=== PATIENT | male | born 1975 | race Caucasian/White ===

== ENCOUNTER 2021-02-26 13:50 | Emergency (ER) | payer SELFPAY ==
--- NOTE | 2021-02-26 13:59 | ED_ITS ---
HPI - Alcohol General: Stated Complaint: ETOH Time Seen by Provider: 02/26/21 13:58 Coding Level of Care Code ED Accounts Payable Administrator for Remington Frank
[2021-02-26 14:01] VITALS: BP 128/90; PULSE 85; RESP 18; TEMP 37.1; O2SAT 98; BMI 31.5
[2021-02-26 16:22] LABS: Basophils # 0.1 10^3/uL (0.0-0.1); Basophils % 0.7 %; Eosinophils % 0.3 %; Hematocrit 51.8 % (42.0-52.0); Hemoglobin 17.5 g/dL (11.7-16.6); Lymphocytes # 2.5 10^3/uL (0.8-4.8); Lymphocytes % 33.3 %; Mean Corpuscular HGB Conc 33.8 g/dL (30.0-36.0); Mean Corpuscular Hemoglobin 33.3 pg (28.0-34.0); Mean Corpuscular Volume 98.7 fL (80-94); Mean Platelet Volume 9.7 fL (7.4-10.4); Monocytes # 0.7 10^3/uL (0.2-0.9); Neutrophils # 4.04 10^3/uL (1.8-7.7); Neutrophils % 54.5 %; Nucleated Red Blood Cells % 0 %; Platelet Count 261 10^3/cmm (130-400); Red Blood Count 5.25 10^6/uL (4.1-5.3); Red Cell Distribution Width 13.2 % (12.1-15.1); White Blood Count 7.4 10^3/uL (4.0-10.0)
[2021-02-26 16:42] LABS: Alanine Aminotransferase 18 U/L (0-41); Albumin Level 4.4 g/dL (3.5-5.2); Alkaline Phosphatase 88 IU/L (40-130); Anion Gap 12.7 (5-19); Aspartate Amino Transferase 25 U/L (0-40); Blood Urea Nitrogen 7 mg/dL (6-20); Calcium 8.4 mg/dL (8.5-10.5); Carbon Dioxide 30 mmol/L (22-29); Chloride 105 mmol/L (98-107); Globulin 3.2 g/dL (1.3-4.6); Glomerular Filtration Rate 122.5 mL/min (90-130); Glucose 96 mg/dL (65-115); Lipase 43 U/L (13-60); Osmolality Calculated 296 mOsm/kg (285-295); Potassium 3.7 mmol/L (3.5-5.1); Sodium 144 mmol/L (136-145); Total Bilirubin 0.2 mg/dL (0.15-1.2); Total Protein 7.6 g/dL (6.6-8.7)
[2021-02-26 16:57] LABS: Alcohol Level 434 mg/dL (0-10)
--- NOTE | 2021-02-26 18:02 | ED_ITS ---
HPI - General Adult General: Chief complaint: General Medical Stated complaint: ETOH Time Seen by Provider: 02/26/21 13:58 History of Present Illness: HPI narrative: The patient is a 45-year-old male who comes to the ER intoxicated on alcohol. He says he drank lots of vodka. He was brought by EMS but he has no idea why he came here or what brought him here. Denies history of seizures. He is arousable and is intoxicated but does answer questions appropriately. Denies any pain or other issues. Associated symptoms: Deny chest pain, confusion, dyspnea, headache(s), rash or palpitations Review of Systems General: Reports: 10 or more systems reviewed and unremarkable except in HPI and below Const: Denies: fatigue Eyes: Denies: change in vision, blurry vision or eye redness ENMT: Denies: throat pain, swelling of lips/tongue, ear or mastoid pain or nasal congestion Card: Denies: chest pain, palpitations, irregular heart rhythm, edema, dyspnea on exertion or orthopnea Resp: Denies: dyspnea, productive cough or non-productive cough GI: Denies: abdominal pain, diarrhea or GI cramping : Denies: flank pain, urinary frequency or urinary urgency Musc: Denies: neck pain, back pain, extremity pain, joint pain, joint redness, limited range of motion or muscle weakness Skin/Breast: Denies: rash, pruritus, erythema, skin pain or skin tenderness Neuro: Denies: headache(s), numbness in extremities, weakness in extremities, sensory changes, difficulty walking, dizziness, confusion or Slurred speech present Psych: Denies: anxiety or depression Endo: Denies: polyuria All/Imm: Denies: urticaria, throat swelling or tongue swelling Physical Exam Narrative: EXAM NARRATIVE: Intoxicated. Smells of alcohol. Somnolent Const: COMMON NORMALS: no acute distress, average body habitus, patient oriented x3, no limitations, healthy appearing, alert and well nourished GENERAL APPEARANCE: cooperative, comfortable and disheveled ORIENTATION/CONSCIOUSNESS: Yes oriented to person, Yes oriented to place and Yes oriented to time HENMT: COMMON NORMALS: normocephalic, external ears normal and Normal external nose present HEAD & SCALP: normal to inspection and normocephalic NOSE: Normal external nose present EXTERNAL EAR: Yes external ears normal MOUTH: Normal oral and palatal mucosa present THROAT: posterior oropharynx normal Eye: COMMON NORMALS: Equal, round and reactive pupils present and EOMs intact bilaterally GENERAL EYE: appearance normal, both eyes and all related structures PUPIL: Yes Equal, round and reactive pupils present Neck/C-Spine: COMMON NORMALS: full ROM, no lymphadenopathy, no meningeal signs and no JVD GENERAL: Yes normal visual inspection Lymph: LYMPHATIC: no lymphadenopathy noted Chest: COMMONS NORMALS: normal inspection of the chest and normal palpation of entire chest wall Resp: COMMON NORMALS: normal respiratory effort, No retractions, No use of accessory muscles, clear to auscultation bilaterally and percussion normal EFFORT & INSPECTION: Yes able to speak in complete sentences AUSCULTATION: clear to auscultation bilaterally PERCUSSION: percussion normal Cardio: COMMON NORMALS: no JVD, regular rate, regular rhythm, S1 normal heart sound present, S2 normal heart sound present and Peripheral pulses 2+ throughout RATE: regular rate RHYTHM: regular rhythm HEART SOUNDS: S1 normal heart sound present and S2 normal heart sound present PERIPHERAL PULSES: Peripheral pulses 2+ throughout GI: COMMON NORMALS: Normal to inspection, nondistended, normoactive bowel sounds present, Soft to palpation, non-tender and no masses INSPECTION: Yes normal to inspection PALPATION: Yes Soft to palpation : COMMON NORMALS: Yes no CVA tenderness BLADDER/KIDNEY EXAM: Yes no CVA tenderness Back/Pelvis: COMMON NORMALS: no CVA tenderness, thoracic and lumbar spine normal to inspection, no thoracic nor lumbar tenderness and thoraco-lumbar ROM normal Extremity: COMMON NORMALS: normal to inspection, full ROM, capillary refill normal, no joint enlargement and no pedal edema GENERAL: Yes normal exam except as noted Neuro: COMMON NORMALS: patient oriented x3, CN's II-XII intact bilaterally, moves all extremities, no focal motor deficits, no sensory deficits noted and gait normal SENSORIUM/ORIENTATION: Yes alert, Yes oriented to person, Yes oriented to place and Yes oriented to time MENINGEAL SIGNS: Yes no meningeal signs Psych: COMMON NORMALS: mental status grossly normal, Normal thought process present, cooperative, normal affect and speech normal ATTITUDE: Yes calm SPEECH: Yes normal speech THOUGHT PROCESS: Normal thought process present Skin: COMMON NORMALS: no rashes or lesions noted GENERAL SKIN EXAM: no rashes or lesions noted Course Vital Signs: Vital signs: Vital Signs Temperature 98.7 F 02/26/21 14:01 Pulse Rate 85 02/26/21 14:01 Respiratory Rate 18 02/26/21 14:01 Blood Pressure 128/90 02/26/21 14:01 Pulse Oximetry 98 02/26/21 14:01 MDM - General Adult MDM Narrative: Medical decision making narrative: IV fluids were started and the patient was comfortable and asleep. The patient eloped without notifying any staff. Cameras noted him going out the side wooden doors into the hospital but security was unable to locate him. He has an IV in his arm. [employer] department notified and they are searching for him. Lab Data: Labs: Lab Results 02/26/21 02/26/21 Range/Units 16:12 16:12 WBC 7.4 (4.0-10.0) 10^3/ uL RBC 5.25 (4.1-5.3) 10^6/u L Hgb 17.5 H (11.7-16.6) g/dL Hct 51.8 (42.0-52.0) % MCV 98.7 H (80-94) fL MCH 33.3 (28.0-34.0) pg MCHC 33.8 (30.0-36.0) g/dL RDW 13.2 (12.1-15.1) % Plt Count 261 (130-400) 10^3/c mm MPV 9.7 (7.4-10.4) fL Neut % (Auto) 54.5 % Lymph % (Auto) 33.3 % [place] % (Auto) 10.0 % Eos % (Auto) 0.3 % Baso % (Auto) 0.7 % Neut # (Auto) 4.04 (1.8-7.7) 10^3/u L Lymph # (Auto) 2.5 (0.8-4.8) 10^3/u L [place] # (Auto) 0.7 (0.2-0.9) 10^3/u L Eos # (Auto) 0.0 (0.0-0.8) 10^3/u L Baso # (Auto) 0.1 (0.0-0.1) 10^3/u L Nucleated RBC % (a uto) 0 % Nucleated RBCs # 0.0 /100WBC Sodium 144 (136-145) mmol/L Potassium 3.7 (3.5-5.1) mmol/L Chloride 105 (98-107) mmol/L Carbon Dioxide 30 H (22-29) mmol/L Anion Gap 12.7 (5-19) BUN 7 (6-20) mg/dL Creatinine 0.7 (0.7-1.2) mg/dL GFR Calculation 122.5 (90-130) mL/min Glucose 96 (65-115) mg/dL Calculated Osmolal ity 296 H (285-295) mOsm/k g Calcium 8.4 L (8.5-10.5) mg/dL Total Bilirubin 0.2 (0.15-1.2) mg/dL AST 25 (0-40) U/L ALT 18 (0-41) U/L Alkaline Phosphata se 88 (40-130) IU/L Total Protein 7.6 (6.6-8.7) g/dL Albumin 4.4 (3.5-5.2) g/dL Globulin 3.2 (1.3-4.6) g/dL Lipase 43 (13-60) U/L Ethyl Alcohol 434 H* (0-10) mg/dL Discharge Plan Discharge Patient Disposition: Left Against Medical Advice Condition: Stable Prescriptions: No Action ibuprofen 200 mg Tablet 800 mg PO PRN RF: 0 Patient Instructions: Opioid Safety Coding Level of Care Code ED First Crusher for Remington Frank
--- NOTE | 2021-02-26 18:23 | PC.NURSE ---
1710 RN rounded on pt and pt is not in his room. pt belongings are not in the pt's room. Pt still has IV in his arm. Pt is not in ER bathrooms or ER. notified charge nurse. walked through hospital. Did not locate pt. notified charge nurse. Security contacted and cameras checked. Charge nurse walked through hospital. Did not locate pt. [facility] Dept contacted and said they would take care of it. Charge nurse notified.
== END 2021-02-26 17:55 | disposition left against medical advice (07) ==
PROVIDERS: Emergency Provider Family Medicine
DX: F10.129 Alcohol abuse with intoxication, unspecified (principal); Y90.8 Blood alcohol level of 240 mg/100 ml or more; Z53.21 Procedure and treatment not carried out due to patient leaving prior to being seen by health care provider
CPT/HCPCS: 80053; 80307; 83690; 85025; 99283

== ENCOUNTER 2021-05-09 15:54 | Emergency (ER) | payer SELFPAY ==
[2021-05-09 16:01] VITALS: PULSE 84; RESP 14; O2SAT 93; BMI 22.9
[2021-05-09] MEDS: sodium chloride 0.9% 1,000 ML 999 ML IV (16:15)
[2021-05-09 16:50] LABS: Basophils # 0.1 10^3/uL (0.0-0.1); Basophils % 1.2 %; Eosinophils # 0.1 10^3/uL (0.0-0.8); Eosinophils % 1.1 %; Hematocrit 44.5 % (42.0-52.0); Hemoglobin 14.9 g/dL (11.7-16.6); Lymphocytes % 46.2 %; Mean Corpuscular HGB Conc 33.5 g/dL (30.0-36.0); Mean Corpuscular Hemoglobin 32.7 pg (28.0-34.0); Mean Corpuscular Volume 97.8 fL (80-94); Mean Platelet Volume 10.4 fL (7.4-10.4); Monocytes # 0.7 10^3/uL (0.2-0.9); Monocytes % 10.8 %; Neutrophils # 2.61 10^3/uL (1.8-7.7); Neutrophils % 40.1 %; Nucleated Red Blood Cells % 0 %; Platelet Count 151 10^3/cmm (130-400); Red Blood Count 4.55 10^6/uL (4.1-5.3); Red Cell Distribution Width 13.2 % (12.1-15.1); White Blood Count 6.5 10^3/uL (4.0-10.0)
[2021-05-09 17:03] LABS: Lactate (Lactic Acid level) 1.1 mmol/L (0.5-2.2)
[2021-05-09 17:15] LABS: Alanine Aminotransferase 12 U/L (0-41); Albumin Level 3.9 g/dL (3.5-5.2); Alkaline Phosphatase 50 IU/L (40-130); Aspartate Amino Transferase 20 U/L (0-40); Blood Urea Nitrogen 5 mg/dL (6-20); Calcium 7.6 mg/dL (8.5-10.5); Carbon Dioxide 27 mmol/L (22-29); Chloride 110 mmol/L (98-107); Globulin 2.1 g/dL (1.3-4.6); Glomerular Filtration Rate 146.4 mL/min (90-130); Glucose 91 mg/dL (65-115); Osmolality Calculated 295 mOsm/kg (285-295); Sodium 144 mmol/L (136-145); Total Bilirubin 0.2 mg/dL (0.15-1.2)
[2021-05-09 17:24] LABS: Alcohol Level 542 mg/dL (0-10)
--- NOTE | 2021-05-09 17:44 | W.ED.ALCOHOL ---
HPI - Alcohol General: Chief Complaint: Alcohol Stated Complaint: UNRESPONSIVE/ ETOH Time Seen by Provider: 05/09/21 16:07 History of Present Illness: HPI narrative: The patient is a 45-year-old male who comes to the ER after he was found by his girlfriend unresponsive in her front yard after he had been drinking all night. When EMS arrived they found him responsive and he had gotten himself up in a chair. On arrival to the ER he is heavily intoxicated and smells of alcohol. Admits to heavy drinking. He is quite somnolent but does respond to painful stimuli and will answer some questions appropriately though he is heavily intoxicated. Denies drug abuse. MD complaint: alcohol intoxication Associated symptoms: Reports no associated symptoms; Deny abdominal pain or depression Review of Systems General: Reports: 10 or more systems reviewed and unremarkable except in HPI and below Const: Denies: fatigue Eyes: Denies: change in vision, blurry vision or eye redness ENMT: Denies: throat pain, swelling of lips/tongue, ear or mastoid pain or nasal congestion Card: Denies: chest pain, palpitations, irregular heart rhythm, edema, dyspnea on exertion or orthopnea Resp: Denies: dyspnea, productive cough or non-productive cough GI: Denies: abdominal pain, diarrhea or GI cramping : Denies: flank pain, urinary frequency or urinary urgency Musc: Denies: neck pain, back pain, extremity pain, joint pain, joint redness, limited range of motion or muscle weakness Skin/Breast: Denies: rash, pruritus, erythema, skin pain or skin tenderness Neuro: Denies: headache(s), numbness in extremities, weakness in extremities, sensory changes, difficulty walking, dizziness, confusion or Slurred speech present Psych: Denies: anxiety or depression Endo: Denies: polyuria All/Imm: Denies: urticaria, throat swelling or tongue swelling Physical Exam Const: ORIENTATION/CONSCIOUSNESS: Yes oriented to person and Yes oriented to place OTHER: Heavily intoxicated and very somnolent. HENMT: COMMON NORMALS: normocephalic, external ears normal and Normal external nose present HEAD & SCALP: normal to inspection and normocephalic NOSE: Normal external nose present EXTERNAL EAR: Yes external ears normal MOUTH: Normal oral and palatal mucosa present THROAT: posterior oropharynx normal Eye: COMMON NORMALS: Equal, round and reactive pupils present and EOMs intact bilaterally GENERAL EYE: appearance normal, both eyes and all related structures PUPIL: Yes Equal, round and reactive pupils present Neck/C-Spine: COMMON NORMALS: full ROM, no lymphadenopathy, no meningeal signs and no JVD GENERAL: Yes normal visual inspection Lymph: LYMPHATIC: no lymphadenopathy noted Chest: COMMONS NORMALS: normal inspection of the chest and normal palpation of entire chest wall Resp: COMMON NORMALS: normal respiratory effort, No retractions, No use of accessory muscles, clear to auscultation bilaterally and percussion normal EFFORT & INSPECTION: Yes able to speak in complete sentences AUSCULTATION: clear to auscultation bilaterally PERCUSSION: percussion normal Cardio: COMMON NORMALS: no JVD, regular rate, regular rhythm, S1 normal heart sound present, S2 normal heart sound present and Peripheral pulses 2+ throughout RATE: regular rate RHYTHM: regular rhythm HEART SOUNDS: S1 normal heart sound present and S2 normal heart sound present PERIPHERAL PULSES: Peripheral pulses 2+ throughout GI: COMMON NORMALS: Normal to inspection, nondistended, normoactive bowel sounds present, Soft to palpation, non-tender and no masses INSPECTION: Yes normal to inspection PALPATION: Yes Soft to palpation : COMMON NORMALS: Yes no CVA tenderness BLADDER/KIDNEY EXAM: Yes no CVA tenderness Back/Pelvis: COMMON NORMALS: no CVA tenderness, thoracic and lumbar spine normal to inspection, no thoracic nor lumbar tenderness and thoraco-lumbar ROM normal Extremity: COMMON NORMALS: normal to inspection, full ROM, capillary refill normal, no joint enlargement and no pedal edema GENERAL: Yes normal exam except as noted Neuro: COMMON NORMALS: CN's II-XII intact bilaterally, moves all extremities, no focal motor deficits, no sensory deficits noted and gait normal SENSORIUM/ORIENTATION: Yes oriented to person and Yes oriented to place MENINGEAL SIGNS: Yes no meningeal signs Psych: APPEARANCE: Yes unkempt Skin: COMMON NORMALS: no rashes or lesions noted GENERAL SKIN EXAM: no rashes or lesions noted Course Vital Signs: Vital signs: Vital Signs Pulse Rate 88 05/09/21 18:49 Respiratory Rate 14 05/09/21 16:01 Pulse Oximetry 96 05/09/21 18:49 MDM - Alcohol MDM Narrative: Medical decision making narrative: The patient came to the ER extremely intoxicated on alcohol. He denied any other substances. He was arousable to painful stimuli but very sleepy. Alcohol level came back 542 which is extremely high. I gave him IV fluids, fed him and made him stay for more than 3 hours. He demanded to leave and was walking and alert and oriented x4. He signed out AGAINST MEDICAL ADVICE. I encouraged him to stay for further medical treatment and he refused. I discussed he had become hypoxic a couple times and was requiring oxygen earlier. He understands the possibility he can and signed out AGAINST MEDICAL ADVICE. Lab Data: Labs: Lab Results 05/09/21 05/09/21 05/09/21 Range/Units 16:20 16:20 16:20 WBC 6.5 (4.0-10.0) 10^3/ uL RBC 4.55 (4.1-5.3) 10^6/u L Hgb 14.9 (11.7-16.6) g/dL Hct 44.5 (42.0-52.0) % MCV 97.8 H (80-94) fL MCH 32.7 (28.0-34.0) pg MCHC 33.5 (30.0-36.0) g/dL RDW 13.2 (12.1-15.1) % Plt Count 151 (130-400) 10^3/c mm MPV 10.4 (7.4-10.4) fL Neut % (Auto) 40.1 % Lymph % (Auto) 46.2 % [place] % (Auto) 10.8 % Eos % (Auto) 1.1 % Baso % (Auto) 1.2 % Neut # (Auto) 2.61 (1.8-7.7) 10^3/u L Lymph # (Auto) 3.0 (0.8-4.8) 10^3/u L [place] # (Auto) 0.7 (0.2-0.9) 10^3/u L Eos # (Auto) 0.1 (0.0-0.8) 10^3/u L Baso # (Auto) 0.1 (0.0-0.1) 10^3/u L Nucleated RBC % (a uto) 0 % Nucleated RBCs # 0.0 /100WBC Sodium 144 (136-145) mmol/L Potassium 4.0 (3.5-5.1) mmol/L Chloride 110 H (98-107) mmol/L Carbon Dioxide 27 (22-29) mmol/L Anion Gap 11.0 (5-19) BUN 5 L (6-20) mg/dL Creatinine 0.6 L (0.7-1.2) mg/dL GFR Calculation 146.4 H (90-130) mL/min Glucose 91 (65-115) mg/dL Calculated Osmolal ity 295 (285-295) mOsm/k g Lactate 1.1 (0.5-2.2) mmol/L Calcium 7.6 L (8.5-10.5) mg/dL Total Bilirubin 0.2 (0.15-1.2) mg/dL AST 20 (0-40) U/L ALT 12 (0-41) U/L Alkaline Phosphata se 50 (40-130) IU/L Total Protein 6.0 L (6.6-8.7) g/dL Albumin 3.9 (3.5-5.2) g/dL Globulin 2.1 (1.3-4.6) g/dL Urine Color (Yellow) Urine Appearance (CLEAR) Urine pH (5-7) Ur Specific Gravit y (1.005-1.030) Urine Protein (Negative) Urine Glucose (UA) (Normal) Urine Ketones (Negative) Urine Blood (Negative) Urine Nitrate (Negative) Urine Bilirubin (Negative) Urine Urobilinogen (Negative) mg/dL Ur Leukocyte Mamie ase (Negative) Urine Opiates Scre en (Negative) ng/mL Ur Barbiturates Sc reen (Negative) ng/mL Ur Phencyclidine S crn (Negative) ng/mL Ur Amphetamines Sc reen (Negative) ng/mL U Benzodiazepines Scrn (Negative) ng/mL Urine Cocaine Scre en (Negative) ng/mL U Marijuana (THC) Screen (Negative) ng/mL Ethyl Alcohol 542 H* (0-10) mg/dL 05/09/21 05/09/21 Range/Units 18:37 18:37 WBC (4.0-10.0) 10^3/ uL RBC (4.1-5.3) 10^6/u L Hgb (11.7-16.6) g/dL Hct (42.0-52.0) % MCV (80-94) fL MCH (28.0-34.0) pg MCHC (30.0-36.0) g/dL RDW (12.1-15.1) % Plt Count (130-400) 10^3/c mm MPV (7.4-10.4) fL Neut % (Auto) % Lymph % (Auto) % [place] % (Auto) % Eos % (Auto) % Baso % (Auto) % Neut # (Auto) (1.8-7.7) 10^3/u L Lymph # (Auto) (0.8-4.8) 10^3/u L [place] # (Auto) (0.2-0.9) 10^3/u L Eos # (Auto) (0.0-0.8) 10^3/u L Baso # (Auto) (0.0-0.1) 10^3/u L Nucleated RBC % (a uto) % Nucleated RBCs # /100WBC Sodium (136-145) mmol/L Potassium (3.5-5.1) mmol/L Chloride (98-107) mmol/L Carbon Dioxide (22-29) mmol/L Anion Gap (5-19) BUN (6-20) mg/dL Creatinine (0.7-1.2) mg/dL GFR Calculation (90-130) mL/min Glucose (65-115) mg/dL Calculated Osmolal ity (285-295) mOsm/k g Lactate (0.5-2.2) mmol/L Calcium (8.5-10.5) mg/dL Total Bilirubin (0.15-1.2) mg/dL AST (0-40) U/L ALT (0-41) U/L Alkaline Phosphata se (40-130) IU/L Total Protein (6.6-8.7) g/dL Albumin (3.5-5.2) g/dL Globulin (1.3-4.6) g/dL Urine Color Straw (Yellow) Urine Appearance Clear (CLEAR) Urine pH 5 (5-7) Ur Specific Gravit y 1.005 (1.005-1.030) Urine Protein Neg (Negative) Urine Glucose (UA) Norm (Normal) Urine Ketones Negative (Negative) Urine Blood Neg (Negative) Urine Nitrate Negative (Negative) Urine Bilirubin Neg (Negative) Urine Urobilinogen Norm (Negative) mg/dL Ur Leukocyte Mamie ase Negative (Negative) Urine Opiates Scre en Negative (Negative) ng/mL Ur Barbiturates Sc reen Negative (Negative) ng/mL Ur Phencyclidine S crn Negative (Negative) ng/mL Ur Amphetamines Sc reen Negative (Negative) ng/mL U Benzodiazepines Scrn Negative (Negative) ng/mL Urine Cocaine Scre en Negative (Negative) ng/mL U Marijuana (THC) Screen Negative (Negative) ng/mL Ethyl Alcohol (0-10) mg/dL Discharge Plan Discharge Patient Disposition: Left Against Medical Advice Clinical Impression: Alcoholic intoxication Condition: Stable Prescriptions: No Action Unable to Assess RF: 0 Coding Level of Care Code ED Outpatient Scheduler for Chg Fwd Exam Comprehensive
--- NOTE | 2021-05-09 18:18 | PC.NURSE ---
pt in au bed and oxygen saturation dropping in 80%'s. ER physician at bedside. pt moved into regular room and placed on full enzyme chemist and hemodynamic monitoring.
[2021-05-09 18:46] LABS: Add Urine Microscopic? NO; Charge for UA Resulting for Rev
[2021-05-09 18:48] LABS: Bilirubin Urine Neg (Negative); Blood Urine Neg (Negative); Glucose Urine UA Norm (Normal); Ketones Urine Negative (Negative); Leukocyte Esterase Urine Negative (Negative); Nitrate Urine Negative (Negative); Protein Urine Neg (Negative); Specific Gravity, Urine 1.005 (1.005-1.030); Urine Appearance Clear (CLEAR); Urine Color Straw (Yellow); Urobilinogen Urine Norm (Negative); pH Urine 5 (5-7)
[2021-05-09 18:49] VITALS: PULSE 88; O2SAT 96
[2021-05-09 18:57] LABS: Amphetamines Screen Urine Negative (Negative); Barbiturates Screen Urine Negative (Negative); Benzodiazepines Screen Urine Negative (Negative); Cocaine Screen Urine Negative (Negative); Opiate Screen Urine Negative (Negative); PCP Screen Urine Negative (Negative); THC Screen Urine Negative (Negative)
[2021-05-09 21:06] VITALS: PULSE 98; O2SAT 96
== END 2021-05-09 19:25 | disposition left against medical advice (07) ==
PROVIDERS: Emergency Provider Family Medicine
DX: F10.129 Alcohol abuse with intoxication, unspecified (principal); Y90.8 Blood alcohol level of 240 mg/100 ml or more; Z53.21 Procedure and treatment not carried out due to patient leaving prior to being seen by health care provider
CPT/HCPCS: 80053; 80306; 80307; 81003; 83605; 85025; 99283; J7030

== ENCOUNTER 2021-05-14 09:53 | Inpatient (IN) | payer SELFPAY ==
[2021-05-14] VITALS (48 sets, daily range): BP systolic 108–154; BP diastolic 70–103; PULSE 69–131; RESP 9–18; TEMP 36.5–37.1; O2SAT 93–99; BMI 22.9
--- NOTE | 2021-05-14 10:20 | ECG_ITS ---
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 Measurements Intervals [place] Rate: 66 P: 3 [place]: 132 QRS: -15 QRSD: 106 T: 34 QT: 379 QTc: 398 Interpretive Statements SINUS RHYTHM WITH MARKED SINUS ARRHYTHMIA ST ELEVATION, PROBABLY EARLY REPOLARIZATION [ST ELEVATION WITH NORMALLY INFLECTED T WAVE] No previous ECG available for comparison Electronically Signed On 05-14-2021 17:45:48 CDT by Adis Anthony M.D. [email or web address]
--- NOTE | 2021-05-14 10:20 | XR_ITS ---
WS: [id number] Exam: XR chest 1V portable [id number] Date/Time of Exam: 05/14/2021 10:21 AM Reason For Exam: cp Comparison 05/06/2015. Findings: The lungs are clear and fully expanded. Costophrenic angles are sharp. No infiltrates. Bronchovascula r relief appears normal. Cardiac silhouette is unremarkable. Bony elements are intact. XR/XR chest 1V portable [id number] IMPRESSION: Unremarkable chest radiograph.
[2021-05-14 11:12] LABS: Basophils % 0.7 %; Eosinophils % 0.2 %; Hematocrit 50.1 % (42.0-52.0); Hemoglobin 17.6 g/dL (11.7-16.6); Lymphocytes # 1.6 10^3/uL (0.8-4.8); Lymphocytes % 27.2 %; Mean Corpuscular HGB Conc 35.1 g/dL (30.0-36.0); Mean Corpuscular Hemoglobin 32.7 pg (28.0-34.0); Mean Corpuscular Volume 93.1 fL (80-94); Monocytes % 16.6 %; Neutrophils # 3.29 10^3/uL (1.8-7.7); Neutrophils % 55.1 %; Nucleated Red Blood Cells % 0 %; Platelet Count 238 10^3/cmm (130-400); Red Blood Count 5.38 10^6/uL (4.1-5.3); Red Cell Distribution Width 13.1 % (12.1-15.1)
[2021-05-14] MEDS: folic acid 1 MG, multivitamin inj 10 ML, thiamine 100 MG in sodium chloride 0.9% 1,000 ML 252.8 MG IV (11:13)
[2021-05-14 11:14] LABS: Amphetamines Screen Urine Negative (Negative); Barbiturates Screen Urine Negative (Negative); Benzodiazepines Screen Urine Negative (Negative); Cocaine Screen Urine Negative (Negative); Opiate Screen Urine Negative (Negative); PCP Screen Urine Negative (Negative); THC Screen Urine Negative (Negative)
--- NOTE | 2021-05-14 11:52 | PC.PHAR ---
pt states he takes no prescription medications-no meds pull up on ext med history-pt states when he takes ibuprofen he only takes 200mg bid prn
[2021-05-14 12:00] LABS: Troponin(5th) Baseline 7 ng/L (0-15)
[2021-05-14 12:02] LABS: Acetaminophen < 5.0 ug/mL (10-30); Alanine Aminotransferase 27 U/L (0-41); Albumin Level 4.7 g/dL (3.5-5.2); Alkaline Phosphatase 79 IU/L (40-130); Anion Gap 18.8 (5-19); Aspartate Amino Transferase 41 U/L (0-40); Blood Urea Nitrogen 7 mg/dL (6-20); Calcium 9.2 mg/dL (8.5-10.5); Carbon Dioxide 28 mmol/L (22-29); Chloride 99 mmol/L (98-107); Globulin 2.4 g/dL (1.3-4.6); Glomerular Filtration Rate 122.5 mL/min (90-130); Glucose 105 mg/dL (65-115); Osmolality Calculated 292 mOsm/kg (285-295); Potassium 3.8 mmol/L (3.5-5.1); Sodium 142 mmol/L (136-145); Total Bilirubin 0.4 mg/dL (0.15-1.2); Total Protein 7.1 g/dL (6.6-8.7)
[2021-05-14 12:03] LABS: Alcohol Level 383 mg/dL (0-10)
--- NOTE | 2021-05-14 12:41 | W.ED.PSYCH ---
HPI - Psych General: Chief Complaint: Psychiatric Symptoms Stated Complaint: very intoxicated Time Seen by Provider: 05/14/21 10:16 History of Present Illness: HPI Narrative: Patient presents to the emergency room dropped off by his father due to intoxication and suicidal comments. Patient does admit to feeling suicidal but denies having a specific plan. Patient does appear to be intoxicated he is quiet he is cooperative he does have the hiccups he occasionally has some midepigastric pain from his drinking which she is had previously denies any black dark stools denies any chest pain or shortness of breath he is a smoker Patient is a poor historian he denies hitting his head however. Patient does admit to being here in the hospital recently for intoxication as well. Patient denies having seizures when he withdrawals he denies having rehab or inpatient therapy denies previous suicidal attempts or admissions Spoke with the patient's father who states patient lives alone alone he has been on about a 2-week darling and he is very concerned that the patient is trying to either drink himself to intentionally or unintentionally he does admit that the patient did state to him today that he was suicidal and wanted to go to the hospital. Father is very concerned about him does not feel comfortable with him going home and is also concerned if he were to have detox and/or seizures while living alone he feels he also needs to be admitted for his depression and his suicidal comments father is a nurse. Review of Systems Narrative: Limited review of systems due to patient in toxicity however he denies headache he does have some epigastric pain and hiccups denies any other abdominal pain or black or dark tarry stools denies any trauma admits to depression suicidal ideation denies hearing voices or hallucinations denies homicidal ideation or drug use does admit to heavy drinking use all other review of systems unable to obtain due to him being quiet and intoxicated [facility] ED PFS: Medical History History of alcoholism History of suicidal ideation Surgical History History of tonsillectomy Family History Mother Alcoholism Father Hypertension Social History (Reviewed 05/14/21 @ 14:08 by GERALD Miller Smoking and tobacco status: current every day smoker Alcohol intake: current Alcohol intake frequency: 3 or more drinks per day Alcohol type: hard liquor Substance/Drug Use: never Course Vital Signs: Vital signs: Vital Signs Temperature 97.7 F 05/14/21 12:48 Pulse Rate 75 05/14/21 12:48 Respiratory Rate 18 05/14/21 12:48 Blood Pressure 124/88 05/14/21 12:48 Pulse Oximetry 96 05/14/21 12:48 MDM - Psych MDM Narrative: Medical decision making narrative: EKG done on May 14, 2021 at 1038 is in normal sinus rhythm heart rate 66 he does have early repolarization I do not feel this is an ST elevation. Patient was given an IV a banana bag alcohol level was extremely high at 340 however I reviewed the patient's chart from his visit several days ago and it was over 500 patient sobered up and left AMA but he was not suicidal at that time. Spoke with the father recommend that he write an affidavit on the patient he states that he would come by after work to do so he is highly concerned of patient's wellbeing he has been drinking very heavily for the past 2 weeks he is uncertain of his intentions if this is possibly in an attempt for suicide as patient made suicidal comments to him today patient does live at home alone it is unknown if he is ever had withdrawal seizures. Spoke with psychiatry Dr. Kamara who recommends that I do write an affidavit which I feel comfortable with as patient adamantly admitted to me I want to affidavit was completed as well as a 96-hour hold. Patient will need to have a medical admission due to his heavy and toxicity and unknowing if he has withdrawal seizures we will have to detox him and then psychiatry to evaluate and possibly 96-hour hold. Dr. Ravi accepted the patient for admission Medical Records: Attestation: I reviewed the patient's medical records. Lab Data: Attestation: I reviewed the patient's lab results. Labs: Lab Results 05/14/21 05/14/21 05/14/21 Range/Units 10:40 11:00 11:00 WBC 6.0 (4.0-10.0) 10^3/ uL RBC 5.38 H (4.1-5.3) 10^6/u L Hgb 17.6 H (11.7-16.6) g/dL Hct 50.1 (42.0-52.0) % MCV 93.1 (80-94) fL MCH 32.7 (28.0-34.0) pg MCHC 35.1 (30.0-36.0) g/dL RDW 13.1 (12.1-15.1) % Plt Count 238 (130-400) 10^3/c mm MPV 10.0 (7.4-10.4) fL Neut % (Auto) 55.1 % Lymph % (Auto) 27.2 % Hand % (Auto) 16.6 % Eos % (Auto) 0.2 % Baso % (Auto) 0.7 % Neut # (Auto) 3.29 (1.8-7.7) 10^3/u L Lymph # (Auto) 1.6 (0.8-4.8) 10^3/u L Hand # (Auto) 1.0 H (0.2-0.9) 10^3/u L Eos # (Auto) 0.0 (0.0-0.8) 10^3/u L Baso # (Auto) 0.0 (0.0-0.1) 10^3/u L Nucleated RBC % (a uto) 0 % Nucleated RBCs # 0.0 /100WBC Sodium 142 (136-145) mmol/L Potassium 3.8 (3.5-5.1) mmol/L Chloride 99 (98-107) mmol/L Carbon Dioxide 28 (22-29) mmol/L Anion Gap 18.8 (5-19) BUN 7 (6-20) mg/dL Creatinine 0.7 (0.7-1.2) mg/dL GFR Calculation 122.5 (90-130) mL/min Glucose 105 (65-115) mg/dL Calculated Osmolal ity 292 (285-295) mOsm/k g Calcium 9.2 (8.5-10.5) mg/dL Total Bilirubin 0.4 (0.15-1.2) mg/dL AST 41 H (0-40) U/L ALT 27 (0-41) U/L Alkaline Phosphata se 79 (40-130) IU/L Troponin T Baselin e (0-15) ng/L Troponin T 120 Min [place] (0-15) ng/L Delta Troponin T (0-10) ABS# Total Protein 7.1 (6.6-8.7) g/dL Albumin 4.7 (3.5-5.2) g/dL Globulin 2.4 (1.3-4.6) g/dL Lipase (13-60) U/L Procalcitonin (0-0.5) ng/mL Urine Opiates Scre en Negative (Negative) ng/mL Acetaminophen < 5.0 L (10-30) ug/mL Ur Barbiturates Sc reen Negative (Negative) ng/mL Ur Phencyclidine S crn Negative (Negative) ng/mL Ur Amphetamines Sc reen Negative (Negative) ng/mL U Benzodiazepines Scrn Negative (Negative) ng/mL Urine Cocaine Scre en Negative (Negative) ng/mL U Marijuana (THC) Screen Negative (Negative) ng/mL Ethyl Alcohol 383 H* (0-10) mg/dL 05/14/21 05/14/21 05/14/21 Range/Units 11:00 11:00 12:50 WBC (4.0-10.0) 10^3/ uL RBC (4.1-5.3) 10^6/u L Hgb (11.7-16.6) g/dL Hct (42.0-52.0) % MCV (80-94) fL MCH (28.0-34.0) pg MCHC (30.0-36.0) g/dL RDW (12.1-15.1) % Plt Count (130-400) 10^3/c mm MPV (7.4-10.4) fL Neut % (Auto) % Lymph % (Auto) % Hand % (Auto) % Eos % (Auto) % Baso % (Auto) % Neut # (Auto) (1.8-7.7) 10^3/u L Lymph # (Auto) (0.8-4.8) 10^3/u L Hand # (Auto) (0.2-0.9) 10^3/u L Eos # (Auto) (0.0-0.8) 10^3/u L Baso # (Auto) (0.0-0.1) 10^3/u L Nucleated RBC % (a uto) % Nucleated RBCs # /100WBC Sodium (136-145) mmol/L Potassium (3.5-5.1) mmol/L Chloride (98-107) mmol/L Carbon Dioxide (22-29) mmol/L Anion Gap (5-19) BUN (6-20) mg/dL Creatinine (0.7-1.2) mg/dL GFR Calculation (90-130) mL/min Glucose (65-115) mg/dL Calculated Osmolal ity (285-295) mOsm/k g Calcium (8.5-10.5) mg/dL Total Bilirubin (0.15-1.2) mg/dL AST (0-40) U/L ALT (0-41) U/L Alkaline Phosphata se (40-130) IU/L Troponin T Baselin e 7 (0-15) ng/L Troponin T 120 Min [place] 6.91 (0-15) ng/L Delta Troponin T -0.09 L (0-10) ABS# Total Protein (6.6-8.7) g/dL Albumin (3.5-5.2) g/dL Globulin (1.3-4.6) g/dL Lipase 56 (13-60) U/L Procalcitonin 0.03 (0-0.5) ng/mL Urine Opiates Scre en (Negative) ng/mL Acetaminophen (10-30) ug/mL Ur Barbiturates Sc reen (Negative) ng/mL Ur Phencyclidine S crn (Negative) ng/mL Ur Amphetamines Sc reen (Negative) ng/mL U Benzodiazepines Scrn (Negative) ng/mL Urine Cocaine Scre en (Negative) ng/mL U Marijuana (THC) Screen (Negative) ng/mL Ethyl Alcohol (0-10) mg/dL Discharge Plan Discharge Patient Disposition: Admitted As Inpatient Admit Provider: Oneal Ravi Clinical Impression: Alcoholic intoxication, Suicidal ideation Condition: Stable Coding Level of Care Code ED Physician General Practice for [facility]
[2021-05-14 13:32] LABS: Troponin 5 2HR 6.91 ng/L (0-15)
--- NOTE | 2021-05-14 13:32 | P.HP_ITS ---
Providers/Chief Complaint Chief Complaint: very intoxicated History of Present Illness Amos Guajardo Jr is a 45 year old male with a past medical history of alcoholism, suicidal ideation, who presents to [facility] due to suicidal ideation and alcoholism. Currently patient is in the ER, on a 96-hour hold, but sitter at bedside, patient tells me that his last drink of alcohol was 8 AM this morning, he had a shot of vodka, he can drink up to a pint of vodka a day, he has been drinking forever, he tells me, does report blacking out, no alcohol withdrawal seizures, does report alcohol withdrawal, no delirium tremens, denies any drug use, does smoke, does report suicidal ideation this morning. Denies any hospitalization for suicidal ideation, no suicide attempts, no troubles with the law. Currently denies chest pain, no shortness of breath, no visual hallucinations, no auditory hallucinations, no tactile hallucinations, no lightheadedness, no dizziness, no diaphoresis. ER physician contacted Dr. Kamara, who will see the patient due to suicidal attempt, hospitalist team was called due to patient's alcoholism, concerns for alcohol withdrawal. Review of Systems Const: Denies: fever(s), chills, fatigue or malaise Eyes: Denies: change in vision or blurry vision ENMT: Denies: nasal congestion Card: Denies: chest pain, palpitations, lightheadedness, syncope or pre- syncope Resp: Denies: dyspnea, productive cough, non-productive cough or wheezing GI: Denies: abdominal pain, nausea, vomiting, hematemesis, diarrhea, constipation, hematochezia or melena : Denies: flank pain, difficulty urinating, dysuria or urinary frequency Musc: Denies: neck pain or back pain Skin/Breast: Denies: rash Neuro: Denies: headache(s), dizziness or vertigo Psych: Reports: anxiety and suicidal ideation; Denies: visual hallucinations, auditory hallucinations, tactile hallucinations or homicidal ideation Endo: Denies: polyuria or polydipsia Medications/Allergies Home Medications Medication Instructions Recorded Confirmed Last Taken Type ibuprofen 200 mg PO BID PRN 05/14/21 05/14/21 Unknown History Allergies Allergy/AdvReac Type Severity Reaction Status Date / Time No Known Allergies Allergy Verified 05/14/21 11:51 PFSH Acute PFSH: Medical History (Updated 05/14/21 @ 13:37 by Oneal Ravi MD) History of alcoholism History of suicidal ideation Surgical History (Updated 05/14/21 @ 13:36 by Oneal Ravi MD) History of tonsillectomy Family History (Updated 05/14/21 @ 13:36 by Oneal Ravi MD) Mother Alcoholism Father Hypertension Social History (Updated 05/14/21 @ 13:36 by Oneal Ravi MD) Smoking and tobacco status: current every day smoker Alcohol intake: current Alcohol intake frequency: 3 or more drinks per day Alcohol type: hard liquor Substance/Drug Use: never Vitals/I&O/Wt Last Vital Signs Temp 97.7 F 05/14/21 12:48 Pulse 75 05/14/21 12:48 Resp 18 05/14/21 12:48 BP 124/88 05/14/21 12:48 Pulse Ox 96 05/14/21 12:48 Weight last 48 hrs Weight 72.575 kg Physical Exam Const: COMMON NORMALS: no acute distress and patient oriented x3 GENERAL APPEARANCE: cooperative and comfortable Eye: COMMON NORMALS: Equal, round and reactive pupils present and EOMs intact bilaterally GENERAL EYE: appearance normal, both eyes and all related structures PUPIL: Yes Equal, round and reactive pupils present Lymph: LYMPHATIC: no lymphadenopathy noted Resp: COMMON NORMALS: normal respiratory effort, No retractions, No use of accessory muscles and clear to auscultation bilaterally AUSCULTATION: clear to auscultation bilaterally Cardio: COMMON NORMALS: regular rate, regular rhythm, S1 normal heart sound present, S2 normal heart sound present, No gallops present (Cardio), No clicks present (Cardio) and No murmurs present (Cardio) RATE: regular rate RHYTHM: regular rhythm HEART SOUNDS: S1 normal heart sound present and S2 normal heart sound present GI: COMMON NORMALS: Normal to inspection, nondistended, normoactive bowel sounds present, Soft to palpation, non-tender and No hepatosplenomegaly present PALPATION: Yes Soft to palpation and Yes No hepatosplenomegaly present Extremity: COMMON NORMALS: normal to inspection, full ROM and no pedal edema Neuro: COMMON NORMALS: patient oriented x3, CN's II-XII intact bilaterally, moves all extremities and no focal motor deficits Psych: COMMON NORMALS: mental status grossly normal Data : 05/14/21 11:00 05/14/21 11:00 A&P Assessment and plan (1) Alcoholic intoxication: -Admit to ICU -[facility] protocol -Thiamine, folate B12, banana bag -Scheduled Librium -Obtain lipase, right upper quadrant ultrasound Status: Acute (2) Suicidal ideation: -One-to-one sitter, 96-hour hold, psychiatry consult Status: Acute Attestations Medical Necessity Statement*: Patient requires hospitalization, inpatient, for suicidal ideation, alcohol withdrawal concerns, 96-hour hold Coding Level of Care Code Acute Market Development Director for [facility] Diagnoses Alcoholic intoxication F10.929 Suicidal ideation R45.850
[2021-05-14 13:33] LABS: Troponin 5 2HR Delta -0.09 ABS# (0-10)
[2021-05-14 14:20] LABS: Lipase 56 U/L (13-60)
[2021-05-14 14:28] LABS: Procalcitonin 0.03 ng/mL (0-0.5)
[2021-05-14] MEDS: ondansetron 2 mg/ML SDV 2 mL 4 MG IVP (15:36)
[2021-05-14] MEDS: dextrose 5%-sod chloride 0.9% 1,000 ML 50 ML IV (15:38)
[2021-05-14] MEDS: chlordiazePOXIDE 25 mg Capsule PO ×2 (15:38→21:21)
[2021-05-14] MEDS: enoxaparin 40 mg/0.4 mL Syringe SUBCUT (15:39)
[2021-05-14] MEDS: LORazepam 2 mg/mL INJ 1 mL IVP ×3 (15:39→21:52)
[2021-05-14 16:49] LABS: INR 0.91 (0.8-1.2)
[2021-05-14 17:10] LABS: Magnesium 1.8 mg/dL (1.7-2.3); Phosphorus 2.6 mg/dL (2.5-4.5); Thyroid Stimulating Hormone 0.34 uIU/mL (0.27-4.20)
[2021-05-14 17:34] LABS: HIV 1 & 2 Antibody Non-Reactive (Non-Reactiv); HIV 1 & 2 Antigen Non-Reactive (Non-Reactiv)
[2021-05-14 20:25] LABS: Hepatitis A Antibody IgM Non-Reactive (Nonreactive); Hepatitis B Core IgM Non-Reactive (Nonreactive); Hepatitis B Surface Antigen Non-Reactive (Nonreactive); Hepatitis C Virus Antibody Non-Reactive (Nonreactive)
[2021-05-15] VITALS (37 sets, daily range): BP systolic 106–156; BP diastolic 64–98; PULSE 61–90; RESP 11–18; TEMP 36.4–37.6; O2SAT 92–99
[2021-05-15] MEDS: ondansetron 2 mg/ML SDV 2 mL 4 MG IVP (00:09)
[2021-05-15] MEDS: LORazepam 2 mg/mL INJ 1 mL IVP (00:10)
[2021-05-15] MEDS: chlordiazePOXIDE 25 mg Capsule PO ×4 (03:05→21:37)
--- NOTE | 2021-05-15 06:00 | US_ITS ---
WS: [id number] ULTRASOUND ABDOMEN LIMITED CLINICAL INFORMATION: liver COMPARISON: None. FINDINGS: Liver Size: Normal. Craniocaudal length: 15.3 cm. Echogenicity: Normal. Surface nodularity: None. Mass (size and location): None. Normal hepatopedal flow in the main portal vein Bile ducts Intrahepatic ducts: Normal. Common bile duct diameter: 0.3 cm. Gallbladder Contracted Gallstones: None. Gallbladder sludge: None. Gallbladder wall thickenin.0 mm Pericholecystic fluid: None. Sonographic Willett sign: Absent. Pancreas Normal as visualized. Right kidney: Normal. Hydronephrosis: None. Size: 11.1 cm x 5.2 cm x 5.3 cm. Abdominal aorta and IVC Visualized portions are normal. Ascites: None. US/US abdomen limited [id number] IMPRESSION: 1. Normal liver. 2. No cholelithiasis. Gallbladder is contracted with mild gallbladder wall thi ckening. Gallbladder function can be further evaluated with HIDA scan. 3. Normal common bile duct. 4. No hydronephrosis in right kidney. 5. No ascites.
--- NOTE | 2021-05-15 06:47 | PC.NURSE ---
Shift Summary Patient is here for ETOH withdrawl, he is very appropriate and cooperative. Patient is having difficulty with nausea and frequent episodes of vomiting, gave zofran and Ativan per CIWA. Patient has been taking multiple power naps throughout the night but never sleep through the entire night. Patient has a 1to1 sitter for suicide precautions and is on a 96hour hold. Patient is getting ivf and voided 500 per urinal once last night. Patient got up one time and almost fell due to being sleepy but the sitter helped stabilize him and redirect him to bed. Patient overall had a good night, drank lots of water and sprite and slept intermittently.
--- NOTE | 2021-05-15 08:37 | PC.CHAP ---
Pastoral Care Encounter/Spiritual Assessment Type of Contact [] Declined customer service advisor visit [] Patient/Family/Request visit [] Outpatient visit [] Follow-up visit [] Physician referral [] Code/Alert [x] Routine visit [] Staff referral [] Actively dying [x] Patient sleeping [] Family support [] [] Out of room [] Palliative care [] [] Receiving care in room [] Pre-surgical visit [] Trauma [] Long length of stay [x] ICU visit [x] Other: sitter present Relational/Emotional Strength [] Patient feels connected with others/family/visitors/staff [] Distress [] Loneliness/isolation [] Abandonment Spirituality of Patient [] Person of Luli [] Attends Islam of their Luli [] Believes in Prayer [] Reads Bible or Pentecostalism materials [] There are Spiritual issues to be addressed Gym Instructor Interventions [x] Prayer [] Active listening [] Non-anxious presence [] Spiritual/emotional support [] Crisis/trauma care [] Spiritual counseling [] Bereavement support [] Provided bereavement packet [] Provided Bible/devotional materials [] Provided toy/stuffed animal, coloring book to patient or family member [] Provided Communion [] Anointing/[place] [] Salvation [x] Completed spiritual assessment [] Other: Impact on Illness or Injury [] Angry [] Fearful [] Anxious [] Often cries [] Exhaustion [] Unable to work [] Unable to attend scientologist [] Unable to walk/stand [] Unable to read [] Unable to drive [] Unable to eat/drink [] Unable to sleep [] Unable to be with family [] Patient intubated [] Other: Summary Time spent with patient
[2021-05-15] MEDS: pantoprazole DR 40 mg Tablet PO (08:43)
[2021-05-15] MEDS: thiamine 100 mg Tablet PO (08:44)
[2021-05-15] MEDS: folic acid 1 mg Tablet PO (08:44)
[2021-05-15] MEDS: multivitamin therapeutic Tablet 1 TAB PO (08:44)
--- NOTE | 2021-05-15 10:21 | PC.NURSE ---
Patient requires sitter d/t 96 hour hold.
--- NOTE | 2021-05-15 10:25 | PC.NURSE ---
Patient requires sitter d/t 96 hour hold status.
--- NOTE | 2021-05-15 10:29 | PC.NURSE ---
Patient requires sitter d/t 96 hour hold.
--- NOTE | 2021-05-15 10:34 | PC.NURSE ---
Patient requires sitter d/t 96 hour hold.
--- NOTE | 2021-05-15 10:56 | PC.NURSE ---
Patient requires sitter d/t 96 hour hold status.
--- NOTE | 2021-05-15 12:13 | PM.PN ---
Subjective Subjective: Interval history: Patient was seen this morning, no significant episodes of withdrawal overnight, no chest pain, no shortness of breath, no palpitations, denies visual auditory or tactile hallucinations, has minimal tremor, sitter at bedside Vitals/I&O/Wt Last Vital Signs Temp 98.9 F 05/15/21 11:24 Pulse 70 05/15/21 11:24 Resp 16 05/15/21 11:24 BP 137/80 05/15/21 11:24 Pulse Ox 96 05/15/21 11:24 05/14/21 05/15/21 05/15/21 22:59 06:59 14:59 Intake Total 350 / 350 800 / 1150 1311.2 / 1311.2 Output Total 500 / 500 500 / 500 Balance -150 / -150 800 / 650 811.2 / 811.2 Weight last 48 hrs Weight 72.575 kg Weight 72.575 kg Physical Exam Const: COMMON NORMALS: no acute distress and patient oriented x3 Resp: COMMON NORMALS: normal respiratory effort, No retractions, No use of accessory muscles and clear to auscultation bilaterally AUSCULTATION: clear to auscultation bilaterally Cardio: COMMON NORMALS: regular rate, regular rhythm, S1 normal heart sound present and S2 normal heart sound present RATE: regular rate RHYTHM: regular rhythm HEART SOUNDS: S1 normal heart sound present and S2 normal heart sound present GI: COMMON NORMALS: Normal to inspection, nondistended, normoactive bowel sounds present, Soft to palpation and non-tender PALPATION: Yes Soft to palpation Extremity: COMMON NORMALS: no pedal edema Neuro: COMMON NORMALS: patient oriented x3 Data : 05/14/21 11:00 05/14/21 11:00 A&P Assessment and plan (1) Alcoholic intoxication: -Currently minimal withdrawal symptoms, will move patient out of intensive care unit, to general medical floors -Continue suicide precautions, one-on-one sitter -[facility] protocol -Thiamine, folate B12, banana bag -Scheduled Librium -Hopefully can be transferred to the NPU in 24 hours Status: Acute Qualifiers: Complication of substance-induced condition: with unspecified complication Qualified Code(s): F10.929 - Alcohol use, unspecified with intoxication, unspecified (2) Suicidal ideation: -One-to-one sitter, 96-hour hold, psychiatry consult Status: Acute Attestations Medical Necessity Statement*: patient requires hospitalization for suicidal ideation, and alcohol withdrawl Coding Level of Care Code Acute Lathe Setup Operator for [facility] Diagnoses Alcoholic intoxication F10.929 Complication of substance-induced condition: with unspecified complication Suicidal ideation R45.851
[2021-05-15] MEDS: dextrose 5%-sod chloride 0.9% 1,000 ML 50 ML IV (15:27)
[2021-05-15] MEDS: enoxaparin 40 mg/0.4 mL Syringe SUBCUT (15:28)
--- NOTE | 2021-05-15 15:45 | PC.RESP ---
Smoking Cessation information sent to patient.
[2021-05-16] VITALS (8 sets, daily range): BP systolic 119–136; BP diastolic 80–84; PULSE 56–91; RESP 14–18; TEMP 36.6–37.3; O2SAT 96–98; BMI 24.5
[2021-05-16] MEDS: chlordiazePOXIDE 25 mg Capsule PO (03:22)
[2021-05-16 06:29] LABS: Basophils % 0.7 %; Eosinophils # 0.1 10^3/uL (0.0-0.8); Eosinophils % 1.5 %; Hematocrit 43.3 % (42.0-52.0); Hemoglobin 14.5 g/dL (11.7-16.6); Lymphocytes % 17.3 %; Mean Corpuscular HGB Conc 33.5 g/dL (30.0-36.0); Mean Corpuscular Hemoglobin 32.5 pg (28.0-34.0); Mean Corpuscular Volume 97.1 fL (80-94); Monocytes % 17.1 %; Neutrophils # 3.77 10^3/uL (1.8-7.7); Neutrophils % 63.2 %; Nucleated Red Blood Cells % 0 %; Platelet Count 178 10^3/cmm (130-400); Red Blood Count 4.46 10^6/uL (4.1-5.3); Red Cell Distribution Width 12.9 % (12.1-15.1)
[2021-05-16] MEDS: dextrose 5%-sod chloride 0.9% 1,000 ML 50 ML IV (06:32)
[2021-05-16 06:53] LABS: Alanine Aminotransferase 16 U/L (0-41); Albumin Level 3.5 g/dL (3.5-5.2); Alkaline Phosphatase 71 IU/L (40-130); Anion Gap 14.5 (5-19); Aspartate Amino Transferase 21 U/L (0-40); Blood Urea Nitrogen 4 mg/dL (6-20); Calcium 8.5 mg/dL (8.5-10.5); Carbon Dioxide 25 mmol/L (22-29); Chloride 100 mmol/L (98-107); Globulin 2.5 g/dL (1.3-4.6); Glomerular Filtration Rate 180.6 mL/min (90-130); Glucose 95 mg/dL (65-115); Magnesium 1.7 mg/dL (1.7-2.3); Osmolality Calculated 279 mOsm/kg (285-295); Phosphorus 2.6 mg/dL (2.5-4.5); Potassium 3.5 mmol/L (3.5-5.1); Sodium 136 mmol/L (136-145); Total Bilirubin 0.6 mg/dL (0.15-1.2)
--- NOTE | 2021-05-16 07:44 | PC.NURSE ---
Patient refused morning dose of Librium. Use of medication explained to patient and patient stated that he was fine right now as far as alcohol withdraw goes. Nurse explained to patient that even though he is not feeling anything right now that it is possible that he could have withdraw later and that some patients don't go through withdraw even up to three days after their last drink. Patient states that he is fine and that he is typically not a daily drinker and would rather not take the medication at this time. CIWA score assessed and tremors felt but not seen causing patient to score a 1. Will continue to monitor.
[2021-05-16] MEDS: multivitamin therapeutic Tablet 1 TAB PO (08:36)
[2021-05-16] MEDS: folic acid 1 mg Tablet PO (08:36)
[2021-05-16] MEDS: pantoprazole DR 40 mg Tablet PO (08:36)
[2021-05-16] MEDS: thiamine 100 mg Tablet PO (08:36)
[2021-05-16] MEDS: nicotine 14 mg Patch 1 PATCH TRANSDERMA (11:08)
--- NOTE | 2021-05-16 11:18 | PC.NURSE ---
Report called to Karina in NPU. Security called to celio.
--- NOTE | 2021-05-16 11:36 | PC.NURSE ---
Patient is a pleasant 45 year old male that presents as a direct admit from the medical surgical floor as a 96 hour hold due to suicidal ideation and ETOH. Patient is alert and oriented, denies SI/HI and explained that he had been drinking heavily, and expressed that he said something that he did not mean. Patient admits that he has been drinking vodka recently more than usual, but does not drink daily. Patient understands that he is currently on a 96 hour hold, but states that he wants to go home. Patient denies history of mental illness, but states he has a history of alcoholism. Has an abrasion on his right elbow, due to cutting logs at his cabin in [facility].
--- NOTE | 2021-05-16 11:53 | PM.PN ---
Subjective Subjective: Interval history: Patient was seen this morning, he is having minimal withdrawal symptoms, denies chest pain, palpitations, visual auditory tactile hallucinations, agrees to go to NPU unit Vitals/I&O/Wt Last Vital Signs Temp 97.8 F 05/16/21 08:00 Pulse 66 05/16/21 08:00 Resp 14 05/16/21 08:00 BP 129/84 05/16/21 08:00 Pulse Ox 98 05/16/21 08:00 05/15/21 05/16/21 05/16/21 22:59 06:59 14:59 Intake Total 240 / 2671.2 1234.167 / 3905.367 Output Total 225 / 725 Balance 15 / 1946.2 1234.167 / 3180.367 Weight last 48 hrs Weight 77.882 kg Weight 72.575 kg Physical Exam Const: COMMON NORMALS: no acute distress and patient oriented x3 Resp: COMMON NORMALS: normal respiratory effort, No retractions, No use of accessory muscles and clear to auscultation bilaterally AUSCULTATION: clear to auscultation bilaterally Cardio: COMMON NORMALS: regular rate, regular rhythm, S1 normal heart sound present and S2 normal heart sound present RATE: regular rate RHYTHM: regular rhythm HEART SOUNDS: S1 normal heart sound present and S2 normal heart sound present GI: COMMON NORMALS: Normal to inspection, nondistended, normoactive bowel sounds present, Soft to palpation and non-tender PALPATION: Yes Soft to palpation Extremity: COMMON NORMALS: no pedal edema Neuro: COMMON NORMALS: patient oriented x3 Psych: COMMON NORMALS: mental status grossly normal Data : 05/16/21 05:59 05/16/21 05:59 A&P Assessment and plan (1) Alcoholic intoxication: -Currently minimal withdrawal symptoms, will move to n.p.o. -Continue suicide precautions, one-on-one sitter -[facility] protocol -Thiamine, folate B12, -Space Librium to 50 mg every 12 hours -We will peripherally follow Status: Acute Qualifiers: Complication of substance-induced condition: with unspecified complication Qualified Code(s): F10.929 - Alcohol use, unspecified with intoxication, unspecified (2) Suicidal ideation: -One-to-one sitter, 96-hour hold, psychiatry consult Status: Acute Attestations Medical Necessity Statement*: Patient requires hospitalization for alcohol intoxication, alcohol withdrawal, will be n.p.u Coding Level of Care Code Acute Care Specialist for [facility] Fwd Diagnoses Alcoholic intoxication F10.929 Complication of substance-induced condition: with unspecified complication Suicidal ideation R45.857
[2021-05-16] MEDS: trazodone 50 mg Tablet PO ×2 (20:49→23:30)
--- NOTE | 2021-05-16 21:51 | PC.NURSE ---
The patient said he no longer wants to take the Librium because it makes him feel strange. He requested Trazodone to help him sleep. Trazodone 50 mg po given.
[2021-05-16] MEDS: hyDROXYzine 25 mg Capsule 50 MG PO (23:30)
--- NOTE | 2021-05-17 03:31 | PC.NURSE ---
Insomnia pt has had a difficult going to sleep this evening, He was given Trazodone 50mg PO X2 doses, Vistaril 50mg PO for anxiety/sleep, pt slept intermittently. Pt verbalized to nursing staff that he would like to have a prescription for Seroquel, he has used this medication and it worked well for him in the past. Pt instructed to mention this to physician.
--- NOTE | 2021-05-17 03:34 | PC.NURSE ---
Refused Librium, Pt does not like how Librium makes him feel. Refused medication, stated, I do not want to take that anymore. It makes me feel weird.
[2021-05-17 06:00] VITALS: BP 122/75; PULSE 62; RESP 15; TEMP 36.4; O2SAT 98
[2021-05-17 08:04] LABS: Basophils % 0.7 %; Eosinophils # 0.1 10^3/uL (0.0-0.8); Eosinophils % 2.3 %; Hematocrit 44.1 % (42.0-52.0); Hemoglobin 14.7 g/dL (11.7-16.6); Lymphocytes # 1.5 10^3/uL (0.8-4.8); Lymphocytes % 24.6 %; Mean Corpuscular HGB Conc 33.3 g/dL (30.0-36.0); Mean Corpuscular Hemoglobin 32.5 pg (28.0-34.0); Mean Corpuscular Volume 97.6 fL (80-94); Mean Platelet Volume 11.6 fL (7.4-10.4); Monocytes # 0.8 10^3/uL (0.2-0.9); Monocytes % 12.9 %; Neutrophils # 3.58 10^3/uL (1.8-7.7); Neutrophils % 59.2 %; Nucleated Red Blood Cells % 0 %; Platelet Count 175 10^3/cmm (130-400); Red Blood Count 4.52 10^6/uL (4.1-5.3); White Blood Count 6.1 10^3/uL (4.0-10.0)
[2021-05-17 08:26] LABS: Alanine Aminotransferase 34 U/L (0-41); Albumin Level 3.6 g/dL (3.5-5.2); Alkaline Phosphatase 64 IU/L (40-130); Aspartate Amino Transferase 59 U/L (0-40); Blood Urea Nitrogen 11 mg/dL (6-20); Calcium 8.8 mg/dL (8.5-10.5); Carbon Dioxide 27 mmol/L (22-29); Chloride 103 mmol/L (98-107); Globulin 2.4 g/dL (1.3-4.6); Glomerular Filtration Rate 180.6 mL/min (90-130); Glucose 100 mg/dL (65-115); Osmolality Calculated 287 mOsm/kg (285-295); Phosphorus 3.7 mg/dL (2.5-4.5); Sodium 139 mmol/L (136-145); Total Bilirubin 0.3 mg/dL (0.15-1.2)
[2021-05-17] MEDS: nicotine 14 mg Patch 1 PATCH TRANSDERMA (09:10)
[2021-05-17] MEDS: pantoprazole DR 40 mg Tablet PO (09:10)
[2021-05-17] MEDS: folic acid 1 mg Tablet PO (09:10)
[2021-05-17] MEDS: thiamine 100 mg Tablet PO (09:10)
[2021-05-17] MEDS: multivitamin therapeutic Tablet 1 TAB PO (09:10)
--- NOTE | 2021-05-17 12:08 | P.HP_ITS ---
Providers/Chief Complaint Admitting Physician: Oneal Ravi MD Chief Complaint: very intoxicated HPI NPU History of Present Illness Amos Guajardo Jr is a 45 year old male who presented to the emergency depart ment with the following report: Chief Complaint: Psychiatric Symptoms Stated Complaint: very intoxicated Time Seen by Provider: 05/14/21 10:16 History of Present Illness: HPI Narrative: Patient presents to the emergency room dropped off by his father due to intoxication and suicidal comments. Elio mccloud does admit to feeling suicidal but denies having a specific plan. Patient does appear to be intoxicated he is quiet he is cooperative he does have the hiccups he occasionally has some midepigastric pain from his drinking which she is had previously denies any black dark stools denies any chest pain or shortness of breath he is a smoker Patient is a poor historian he denies hitting his head however. Patient does admit to being here in the hospital recently for intoxication as well. Patient denies having seizures when he withdrawals he denies having rehab or inpatient therapy denies previous suicidal attempts or admissions Spoke with the patient's father who states patient lives alone alone he has been on about a 2-week darling and he is very concerned that the patient is trying to either drink himself to intentionally or unintentionally he does admit that the patient did state to him today that he was suicidal and wanted to go to the hospital. Father is very concerned about him does not feel comfortable with him going home and is also concerned if he were to have detox and/or seizures while living alone he feels he also needs to be admitted for his depression and his suicidal comments father is a nurse. He was admitted to the ICU for definitive treatment of his medical effects of withdrawal and intoxication. After a couple of days of intensive care hydration and assistance with withdrawal he was transferred to the neuropsychiatric unit for definitive treatment of concerns for suicidality and him being on a 96-hour hold. Patient presents denying significant psychiatric history but acknowledging a previous inpatient visit which was also alcohol connected. A excerpt from that note is included below for context. He denies substantive changes since that time and reports that he had plus minus success in managing his addiction. We discussed different options to assist with cravings from alcohol which at this time he is not willing to consider. He reports that he was suicidal on admission to some degree but reports that that has resolved. We discussed observation today with the possibility of discharge tomorrow if he continues in his life. We discussed the risk-benefit alternatives of medication for depressive and anxiety symptoms that he discusses at times at this point he reports a plan to work on his recovery with the thought that that will create an environment for depression and anxiety to go away. We discussed the fact that sometimes people in the drinking to deal with those things even if is not a conscious decision. History of Present Illness Date of Service: May 28, 2019 Chief Complaint: I threatened to harm myself, but it was a joke. HPI: HPI: The patient is a 43-year-old male admitted on a 96 hour hold for acute intoxicated with alcohol for suicidal threats and behavior with a firearm. Affidavit reviewed on the chart indicates that the patient told his friend that he was going to kill himself and held a shotgun to his chin. The patient minimized the incident when police were called and denied ever having any s uicidal ideation however. The patient reports that he had been drinking quite a bit yesterday up to half a bottle of a fifth of vodka over the course of the day with a friend. He initially claims that he has no memory of making any suicidal comments but then goes on to report that he was just joking with a firearm gesture in order to get my point across. The patient seems to minimize the incident but does report remorseful illness for his recent alcohol relapse as he knows he should've called his sponsor or accountability partners. Reports It's not something I'm proud of. Psychiatric review of systems: Patient minimizes mood symptoms and reports that his mood has been pretty positive over the last 2 weeks. He reports he has been eating and sleeping well with good energy. Reports he has had some boredom recently triggering his alcohol relapse. He denies any suicidal idea tion/planning/intent. Denies any history of manic episode or homicidal ideation. Denies any hallucinations or paranoia. Denies any particular anxiety. Past psychiatric history: Patient denies any outpatient psychiatrist/therapist. He denies any prior psychiatric diagnoses/history of suicide att empts/psychiatric admissions/psychotropic medications. Past medical history: hx TBI several months ago no concussion, denies seizures, surgeries: torsion, left wrist, tonsillectillecy Family history: mother- alcoholism Social history: Patient is single and has 3 children, he currently lives with his 17-year-old son and his father lives 3 blocks away, he has 2 daughters who do not live with him. He does have a firearm at home which she reports is his son's shotgun. 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 Patient reports a history of alcohol dependence and reports has been sober for 3-4 months up until relapsing 4 days ago upon quitting his job. Denies any history of complicated alcohol withdrawal. He has been involved in [employer] and has prior participated in [address] 2016. He denies any illicit drug use. Tobacco 1.5PPD. Meds NPU Home Medications Medication Instructions Recorded Confirmed Last Taken Type No Known Home Medications 05/17/21 05/17/21 Unknown History Allergies Allergy/AdvReac Type Severity Reaction Status Date / Time No Known Allergies Allergy Verified 05/14/21 11:51 PFSH NPU PFSH: Medical History History of alcoholism History of suicidal ideation Surgical History History of tonsillectomy Family History Mother Alcoholism Father Hypertension Social History Smoking and tobacco status: current every day smoker Alcohol intake: current Alcohol intake frequency: 3 or more drinks per day Alcohol type: hard liquor Mental Status Exam MSE Comments: This is a well-nourished well-developed white male with hospital scrubs on with appropriate grooming and eye contact. No abnormal movements except for mild psychomotor retardation. Operative exam in no acute distress. Speech was slightly decreased rate and volume. Mood described as getting better, affect subdued. Thought process organized. Thought content: Patient denied suicidal or homicidal ideation, there were no delusions reported or noted, he denied any auditory visual hallucinations. Attention and concentration were intact and memory appeared reliable but none were formally tested. He is alert and oriented x3. Insight and judgment appear improving and impulse control is limited. Vitals/I&O/Wt Last Vital Signs Temp 98.3 F 05/17/21 14:56 Pulse 77 05/17/21 14:56 Resp 18 05/17/21 14:56 BP 114/72 05/17/21 14:56 Pulse Ox 98 05/17/21 14:56 05/17/21 05/17/21 06:59 14:59 Intake Total 1000 / 1000 Balance 1000 / 1000 Weight last 48 hrs Weight 77.564 kg Weight 77.882 kg Data NPU : 05/18/21 07:10 05/18/21 07:10 A&P Assessment and plan (1) Suicidal ideation: Status: Acute (2) Alcoholic intoxication: Status: Acute Qualifiers: Complication of substance-induced condition: with unspecified complication Qualified Code(s): F10.929 - Alcohol use, unspecified with intoxication, unspecified (3) Depression: Status: Acute (4) Anxiety: Status: Acute Additional A&P Information This is a 45-year-old white male with a long history of difficulty with alcohol with active addiction, who presented to the emergency department with concerns for suicidality noting depression anxiety that he attributes to the drinking on a 96-hour hold. 1. Continue current medication. Encouraged him to consider psychotropic medications that might assist with anxiety, depression or his actual drinking behavior. 2. Continue every 15 minute checks for safety. 3. Encourage individual, group and milieu therapies. 4. Encourage sober living treatment after discharge at the highest level of car e to which he is willing to commit. Involuntary Hold Information 96 Hour Hold: 96 Hour Involuntary Admission: Yes 96 Hour Hold Ending Date: 05/20/21 96 Hour Hold Ending Time: 11:00 Attestations NPU Medical Necessity Statement*: Inpatient hospitalization is medically necessary and the clinically appropriate intervention at this time. We will monitor medi cations and make changes as indicated. Patient will be in the hospital for over two midnights. Likely length of stay 1-3 days. We will evaluate for safety for discharge and consider discharge in the morning. Coding Level of Care Code Acute [facility] [employer] [facility] [employer] Diagnoses Suicidal ideation R45.851 Alcoholic intoxication F10.929 Complication of substance-induced condition: with unspecified complication Depression F32.9 Anxiety F41.9
[2021-05-17 14:00] VITALS: BP 122/75; PULSE 62; RESP 15; TEMP 36.4; O2SAT 98
[2021-05-17 14:56] VITALS: BP 114/72; PULSE 77; RESP 18; TEMP 36.8; O2SAT 98
[2021-05-17 16:00] VITALS: BP 114/72; PULSE 77; RESP 18; TEMP 36.8; O2SAT 98
[2021-05-17 20:00] VITALS: BP 123/78; PULSE 73; RESP 18; TEMP 36.6; O2SAT 98
[2021-05-17 22:00] VITALS: BP 123/78; PULSE 73; RESP 18; TEMP 36.6; O2SAT 98
[2021-05-17] MEDS: trazodone 50 mg Tablet PO (22:40)
[2021-05-17] MEDS: hyDROXYzine 25 mg Capsule 50 MG PO (22:40)
--- NOTE | 2021-05-17 23:47 | PC.NURSE ---
pt:RX Request for Dr Roa/ Pt requested information on a drug to stop or help him stop drinking. Antibuse discussed, print out provided, and pt states I'm thinkin about this, it may help me. Pt mentioned Seroquel to nurse by name, states, I have chronic insomnia, trazodone does not help by itself. However, the combination of Vistaril and Trazodone worked well last night for me. Pt showered, interacted with staff/pts well, seems happy today, smiles, took a shower, requested medications tonight for sleep/ mild anxiety
--- NOTE | 2021-05-18 00:28 | PC.NURSE ---
The patient requested Trazodone and Vistaril at hs to help with sleep. He said that combination provided him very good sleep the previous night. Meds given at 2240. At this time in bed sleeping.
[2021-05-18 06:00] VITALS: BP 120/83; PULSE 86; RESP 18; TEMP 36.8; O2SAT 97
[2021-05-18 07:28] LABS: Basophils # 0.1 10^3/uL (0.0-0.1); Basophils % 0.7 %; Eosinophils # 0.2 10^3/uL (0.0-0.8); Eosinophils % 2.3 %; Hemoglobin 14.9 g/dL (11.7-16.6); Lymphocytes # 2.2 10^3/uL (0.8-4.8); Mean Corpuscular HGB Conc 33.1 g/dL (30.0-36.0); Mean Corpuscular Hemoglobin 32.5 pg (28.0-34.0); Mean Platelet Volume 11.5 fL (7.4-10.4); Monocytes # 0.8 10^3/uL (0.2-0.9); Monocytes % 9.2 %; Neutrophils # 5.46 10^3/uL (1.8-7.7); Neutrophils % 62.5 %; Nucleated Red Blood Cells % 0 %; Platelet Count 179 10^3/cmm (130-400); Red Blood Count 4.59 10^6/uL (4.1-5.3); Red Cell Distribution Width 13.2 % (12.1-15.1); White Blood Count 8.7 10^3/uL (4.0-10.0)
[2021-05-18 08:14] LABS: Alanine Aminotransferase 70 U/L (0-41); Albumin Level 3.7 g/dL (3.5-5.2); Alkaline Phosphatase 65 IU/L (40-130); Blood Urea Nitrogen 13 mg/dL (6-20); Carbon Dioxide 24 mmol/L (22-29); Chloride 102 mmol/L (98-107); Globulin 2.7 g/dL (1.3-4.6); Glomerular Filtration Rate 122.5 mL/min (90-130); Glucose 101 mg/dL (65-115); Magnesium 1.9 mg/dL (1.7-2.3); Osmolality Calculated 282 mOsm/kg (285-295); Phosphorus 3.3 mg/dL (2.5-4.5); Sodium 136 mmol/L (136-145); Total Bilirubin 0.2 mg/dL (0.15-1.2); Total Protein 6.4 g/dL (6.6-8.7)
[2021-05-18] MEDS: thiamine 100 mg Tablet PO (08:17)
[2021-05-18] MEDS: multivitamin therapeutic Tablet 1 TAB PO (08:17)
[2021-05-18] MEDS: nicotine 14 mg Patch 1 PATCH TRANSDERMA (08:17)
[2021-05-18] MEDS: folic acid 1 mg Tablet PO (08:17)
[2021-05-18] MEDS: pantoprazole DR 40 mg Tablet PO (08:17)
[2021-05-18 08:50] VITALS: BP 120/83; PULSE 86; RESP 18; TEMP 36.8; O2SAT 97
[2021-05-18 08:52] LABS: Anion Gap 14.3 (5-19); Aspartate Amino Transferase 78 U/L (0-40); Potassium 4.3 mmol/L (3.5-5.1)
--- NOTE | 2021-05-18 09:32 | P.DS_ITS ---
Diagnoses at Discharge Discharge Diagnosis (1) Alcoholic intoxication: Status: Acute Qualifiers: Complication of substance-induced condition: with unspecified complication Qualified Code(s): F10.929 - Alcohol use, unspecified with intoxication, unspecified (2) Suicidal ideation: Status: Acute (3) Anxiety: Status: Acute (4) Depression: Status: Acute Reason for Visit Reason for Visit: very intoxicated Brief History: History of Present Illness Amos Guajardo Jr is a 45 year old male who presented to the emergency department with the following report: Chief Complaint: Psychiatric Symptoms Stated Complaint: very intoxicated Time Seen by Provider: 05/14/21 10:16 History of Present Illness: HPI Narrative: Patient presents to the emergency room dropped off by his father due to intoxication and suicidal comments. Patient does admit to feeling suicidal but denies having a specific plan. Patient does appear to be intoxicated he is quiet he is cooperative he does have the hiccups he occasionally has some midepigastric pain from his drinking which she is had previously denies any black dark stools denies any chest pain or shortness of breath he is a smoker Patient is a poor historian he denies hitting his head however. Patient does admit to being here in the hospital recently for intoxication as well. Patient denies having seizures when he withdrawals he denies having rehab or inpatient therapy denies previous suicidal attempts or admissions Spoke with the patient's father who states patient lives alone alone he has been on about a 2-week darling and he is very concerned that the patient is trying to either drink himself to intentionally or unintentionally he does admit that the patient did state to him today that he was suicidal and wanted to go to the hospital. Father is very concerned about him does not feel comfortable with him going home and is also concerned if he were to have detox and/or seizures while living alone he feels he also needs to be admitted for his depression and his suicidal comments father is a nurse. He was admitted to the ICU for definitive treatment of his medical effects of withdrawal and intoxication. After a couple of days of intensive care hydration and assistance with withdrawal he was transferred to the neuropsychiatric unit for definitive treatment of concerns for suicidality and him being on a 96-hour hold. Patient presents denying significant psychiatric history but acknowledging a previous inpatient visit which was also alcohol connected. A excerpt from that note is included below for context. He denies substantive changes since that time and reports that he had plus minus success in managing his addiction. We discussed different options to assist with cravings from alcohol which at this time he is not willing to consider. He reports that he was suicidal on admission to some degree but reports that that has resolved. We discussed observation today with the possibility of discharge tomorrow if he continues in his life. We discussed the risk-benefit alternatives of medication for depressive and anxiety symptoms that he discusses at times at this point he reports a plan to work on his recovery with the thought that that will create an environment for depression and anxiety to go away. We discussed the fact that sometimes people in the drinking to deal with those things even if is not a conscious decision. History of Present Illness Date of Service: May 28, 2019 Chief Complaint: I threatened to harm myself, but it was a joke. HPI: HPI: The patient is a 43-year-old male admitted on a 96 hour hold for acute intoxicated with alcohol for suicidal threats and behavior with a firearm. Affidavit reviewed on the chart indicates that the patient told his friend that he was going to kill himself and held a shotgun to his chin. The patient minimized the incident when police were called and denied ever having any suicidal ideation however. The patient reports that he had been drinking quite a bit yesterday up to half a bottle of a fifth of vodka over the course of the day with a friend. He initially claims that he has no memory of making any suicidal comments but then goes on to report that he was just joking with a firearm gesture in order to get my point across. The patient seems to minimize the incident but does report remorseful illness for his recent alcohol relapse as he knows he should've called his sponsor or accountability partners. Reports It's not something I'm proud of. Psychiatric review of systems: Patient minimizes mood symptoms and reports that his mood has been pretty positive over the last 2 weeks. He reports he has been eating and sleeping well with good energy. Reports he has had some boredom recently triggering his alcohol relapse. He denies any suicidal ideation/planning/intent. Denies any history of manic episode or homicidal ideation. Denies any hallucinations or paranoia. Denies any particular anxiety. Past psychiatric history: Patient denies any outpatient psychiatrist/therapist. He denies any prior psychiatric diagnoses/history of suicide attempts/psychiatric admissions/psychotropic medications. Past medical history: hx TBI several months ago no concussion, denies seizures, surgeries: torsion, left wrist, tonsillectillecy Family history: mother- alcoholism Social history: Patient is single and has 3 children, he currently lives with his 17-year-old son and his father lives 3 blocks away, he has 2 daughters who do not live with him. He does have a firearm at home which she reports is his son's shotgun. 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 Patient reports a history of alcohol dependence and reports has been sober for 3-4 months up until relapsing 4 days ago upon quitting his job. Denies any history of complicated alcohol withdrawal. He has been involved in [employer] and has prior participated in [employer] 2016. He denies any illicit drug use. Tobacco 1.5PPD. Hospital Course Hospital Course Amos presented to the emergency department with active alcohol use/intoxication and concerns for suicidality. He was admitted to the ICU on a 96-hour hold and his withdrawal and intoxication were managed and he was transferred to the neuropsychiatric unit for definitive treatment of that plus anxiety/depression. On the unit he quickly acclimated to the individual, group and milieu therapies provided. We discussed multiple treatment options including medications, but he was not interested at this time and introducing psychopharmacologic interventions. He was able to contract for safety prior to discharge. During the hospitalization, patient had routine laboratory studies which were within normal limits except for few outliers. Additionally there was a general medical evaluation which was also within normal limits and revealed no new acute processes. Discharge Summary: At the time of discharge, he denied psychosis or lethality. Mood and anxiety were well managed. Patient endorsed a plan to avoid all drugs of abuse and follow-up with the aftercare recommendations of the treatment team. Patient was evaluated and deemed to be absent credible lethality, and had achieved the maximum benefit from an inpatient hospitalization, so was discharged. Involuntary Hold Information 96 Hour Hold: 96 Hour Involuntary Admission: Yes 96 Hour Hold Ending Date: 05/20/21 96 Hour Hold Ending Time: 11:00 Mental Status Exam MSE Comments: This is a well-nourished well-developed white male with hospital scrubs on with appropriate grooming and eye contact. No abnormal movements except for mild psychomotor retardation. Cooperative with exam in no acute distress. Speech was more normal rate and volume. Mood described as g pretty good, affect brighter. Thought process organized. Thought content: Patient denied suicidal or homicidal ideation, there were no delusions reported or noted, he denied any auditory visual hallucinations. Attention and concentration were intact and memory appeared reliable but none were formally tested. He is alert and oriented x3. Insight and judgment appear improving and impulse control is limited. Discharge Data Data Completed and Pending: Completed Studies During Hospitalization Category Date Time Status XR chest 1V south ble [id number] Stat Exams 05/14/21 10:20 [place] [id number] Routine Ultrasound 05/15/21 06:00 Completed Labs from last 24 hours 05/18/21 05/18/21 07:10 07:10 WBC 8.7 RBC 4.59 Hgb 14.9 Hct 45.0 MCV 98.0 H MCH 32.5 MCHC 33.1 RDW 13.2 Plt Count 179 MPV 11.5 H Neut % (Auto) 62.5 Lymph % (Auto) 25.0 [place] % (Auto) 9.2 Eos % (Auto) 2.3 Baso % (Auto) 0.7 Neut # (Auto) 5.46 Lymph # (Auto) 2.2 [place] # (Auto) 0.8 Eos # (Auto) 0.2 Baso # (Auto) 0.1 Nucleated RBC % (a uto) 0 Nucleated RBCs # 0.0 Sodium 136 Potassium 4.3 Chloride 102 Carbon Dioxide 24 Anion Gap 14.3 BUN 13 Creatinine 0.7 GFR Calculation 122.5 Glucose 101 Calculated Osmolal ity 282 L Calcium 9.0 Phosphorus 3.3 Magnesium 1.9 Total Bilirubin 0.2 AST 78 H ALT 70 H Alkaline Phosphata se 65 Total Protein 6.4 L Albumin 3.7 Globulin 2.7 Vitals: Last Vital Signs Temp 98.2 F 05/18/21 08:50 Pulse 86 05/18/21 08:50 Resp 18 05/18/21 08:50 BP 120/83 05/18/21 08:50 Pulse Ox 97 05/18/21 08:50 Discharge Plan Discharge Patient Disposition: Home Condition: Stable Prescriptions: Continued No Known Home Medications RF: 0 Discharge Orders: Discharge Order (Routine); Ordered 05/18/21 Ordered By: Nazario Roa Referrals: [facility] Meet[facility] [Other] [facility] [Outside] (Walk In appointment between 7:30 AM and 3:00 PM) [facility] [Outside] Discharge Diet: Regular Discharge Activity: Resume usual activity Patient Instructions: Opioid Safety Discharge Attestations NPU Time Spent in Discharge Care*: less than 30 min Specific Discharge Activities: Specific discharge activities: educating patient, discussing with case management director/social workers/dc planners, documenting/other paperwork and evaluating patient/reviewing data Coding Level of Care Code Acute [facility] DC note Diagnoses Alcoholic intoxication F10.929 Complication of substance-induced condition: with unspecified complication Suicidal ideation R45.851 Anxiety F41.9 Depression F32.9
== END 2021-05-18 10:15 | disposition home or self-care (01) | DRG 897 ==
LOC: ER 14:11 → ICU 14:15 → MEDSURG 05-15 10:10 → NP 05-16 11:38
PROVIDERS: Admitting Provider Family Medicine; Emergency Provider Emergency Medicine; Visit Provider Psychiatry & Neurology Psychiatry
DX: F10.229 Alcohol dependence with intoxication, unspecified (principal); R45.851 Suicidal ideations; F10.239 Alcohol dependence with withdrawal, unspecified; Y90.8 Blood alcohol level of 240 mg/100 ml or more; F17.210 Nicotine dependence, cigarettes, uncomplicated; F41.9 Anxiety disorder, unspecified; F32.9 Major depressive disorder, single episode, unspecified
CPT/HCPCS: 36415; 71045; 76705; 80053; 80074; 80306; 80307; 83690; 83735; 84100; 84145; 84443; 84484; 85025; 85610; 87806; 93005; 96360; 96361; 96372; 99285; J1650; J2060; J2405; J3411; J3490; J7030

== ENCOUNTER 2021-09-01 07:41 | Emergency (ER) | payer SELFPAY ==
[2021-09-01 07:42] VITALS: BP 116/77; PULSE 85; RESP 17; TEMP 36.4; O2SAT 98; BMI 22.9
--- NOTE | 2021-09-01 07:52 | ED_ITS ---
HPI - Fall General: Chief Complaint: Fall Stated Complaint: etoh, head and leg lac Time Seen by Provider: 09/01/21 07:41 History of Present Illness: HPI Narrative: 46-year-old male presents emergency room acutely intoxicated. He was brought in by EMS he been at a local convenience store fell he has an abrasion to the back of his head and abrasion on his right knee. Patient has a backpack with him. When asked him where he is staying he does have family in the area but he is essentially been homeless he states the backpack is a change of clothes for him to go to work. He was previously in the ER acutely intoxicated and was admitted for suicidal ideation. I asked the patient several times today both initially and just before we discharge him about suicidal ideation he denies any intent or thought. He is acutely intoxicated and readily admits he has been drinking heavily. He declines to talk about any life stressors that may be contributing to his drinking or his previous hospitalization for suicidal ideation. MD complaint: fall Onset (ago): unknown Fall from: standing Fall witnessed: no Place fall occurred: street Loss of consciousness: Unsure Prolonged down time: unclear Symptoms prior to fall: other (intoxicated) Context: tripped/slipped and alcohol use Location of injury: head Location of injury - extremities: Right: shoulder Severity: mild Associated symptoms-after fall: Denies abdominal pain, chest pain, confusion, difficulty walking, headache(s), hematuria, lightheadedness, neck pain, numbness, short of breath, vertigo or weakness Review of Systems Const: Denies: fever(s), chills, body aches, change in appetite, fatigue or malaise ENMT: Denies: throat pain, ear or mastoid pain, nasal discharge or nasal congestion Card: Denies: chest pain or lightheadedness Resp: Denies: dyspnea, productive cough or non-productive cough GI: Denies: abdominal pain : Denies: hematuria Musc: Denies: neck pain Skin/Breast: Denies: rash or pruritus Neuro: Denies: headache(s), difficulty walking, vertigo or confusion PFS ED PFSH: Medical History History of alcoholism History of suicidal ideation Surgical History History of tonsillectomy Family History Mother Alcoholism Father Hypertension Social History Smoking and tobacco status: current every day smoker Alcohol intake: current Alcohol intake frequency: 3 or more drinks per day Alcohol type: hard liquor Physical Exam Const: COMMON NORMALS: no acute distress GENERAL APPEARANCE: cooperative and comfortable ORIENTATION/CONSCIOUSNESS: Yes awake, Yes oriented to person, Yes oriented to place and Yes oriented to time HENMT: COMMON NORMALS: normocephalic and hearing grossly normal bilaterally HEAD & SCALP: normocephalic Neck/C-Spine: COMMON NORMALS: no JVD Resp: COMMON NORMALS: normal respiratory effort, No retractions, No use of accessory muscles and clear to auscultation bilaterally AUSCULTATION: clear to auscultation bilaterally Cardio: COMMON NORMALS: no JVD, regular rate, regular rhythm and No murmurs present (Cardio) RATE: regular rate RHYTHM: regular rhythm GI: COMMON NORMALS: Soft to palpation and No hepatosplenomegaly present AUSCULTATION: Yes normoactive bowel sounds PALPATION: Yes Soft to palpation, No Tenderness to palpation present (GI), No Guarding due to palpation present (GI) and Yes No hepatosplenomegaly present Extremity: COMMON NORMALS: normal to inspection, capillary refill normal, no clubbing, cyanosis or edema, no calf tenderness and no pedal edema Neuro: SENSORIUM/ORIENTATION: Yes oriented to person, Yes oriented to place an d Yes oriented to time Skin: OTHER: Abrasions on the right knee and abrasion on the inion of the occiput to the left of the midline. No full-thickness laceration. Course Vital Signs: Vital signs: Vital Signs Temperature 97.6 F 09/01/21 07:42 Pulse Rate 63 09/01/21 08:32 Respiratory Rate 18 09/01/21 08:32 Blood Pressure 116/79 09/01/21 08:32 Pulse Oximetry 96 09/01/21 08:32 MDM - Fall MDM Narrative: Medical decision making narrative: Spite being acutely intoxicated patient is alert awake and aware. He is oriented x3. He is slurring his words slightly. Multiple times asked him about suicidal ideation he continues to deny. He refuses to talk about any life stressors that precipitated his drinking or his previous hospitalization for suicidal ideation. Labs and imaging reviewed as on the chart the abrasions on his knee and the back of his head did not require suturing. We will discharge the patient home. Encouraged to stop drinking patient does state that he has been to [facility] and to [facility] meetings in the past but did not been particularly helpful to get him to stop drinking. Patient can return at any time if has further problems. Lab Data: Labs: Lab Results 09/01/21 09/01/21 08:07 08:07 WBC 8.5 10^3/uL 10^3/ uL (4.0-10.0) RBC 4.99 10^6/uL 10^6 /uL (4.1-5.3) Hgb 16.8 g/dL H g/dL (11.7-16.6) Hct 50.1 % % (42.0-52.0) MCV 100.4 fl H fl (80-94) MCH 33.7 pg pg (28.0-34.0) MCHC 33.5 g/dL g/dL (30.0-36.0) RDW 13.3 % % (12.1-15.1) Plt Count 182 10^3/cmm 10^3 /cmm (130-400) MPV 10.6 fL H fL (7.4-10.4) Neut % (Auto) 64.2 % % Lymph % (Auto) 26.5 % % [place] % (Auto) 8.0 % % Eos % (Auto) 0.2 % % Baso % (Auto) 0.6 % % Neut # (Auto) 5.44 10^3/uL 10^3 /uL (1.8-7.7) Lymph # (Auto) 2.3 10^3/uL 10^3/ uL (0.8-4.8) [place] # (Auto) 0.7 10^3/uL 10^3/ uL (0.2-0.9) Eos # (Auto) 0.0 10^3/uL 10^3/ uL (0.0-0.8) Baso # (Auto) 0.1 10^3/uL 10^3/ uL (0.0-0.1) Nucleated RBC % (a uto) 0 % % Nucleated RBCs # 0.0 /100WBC /100W BC Sodium 148 mmol/L H mmol /L (136-145) Potassium 3.6 mmol/L mmol/L (3.5-5.1) Chloride 110 mmol/L H mmol /L (98-107) Carbon Dioxide 25 mmol/L mmol/L (22-29) Anion Gap 16.6 (5-19) BUN 8 mg/dL mg/dL (6-20) Creatinine 0.5 mg/dL L mg/dL (0.7-1.2) GFR Calculation 179.8 mL/min H mL /min (90-130) Glucose 114 mg/dL mg/dL (65-115) Calculated Osmolal ity 305 mOsm/kg H mOs m/kg (285-295) Calcium 8.8 mg/dL mg/dL (8.5-10.5) Total Bilirubin 0.2 mg/dL mg/dL (0.15-1.2) AST 28 U/L U/L (0-40) ALT 21 U/L U/L (0-41) Alkaline Phosphata se 54 IU/L IU/L (40-130) Total Protein 6.9 g/dL g/dL (6.6-8.7) Albumin 4.2 g/dL g/dL (3.5-5.2) Globulin 2.7 g/dL g/dL (1.3-4.6) Discharge Plan Discharge Patient Disposition: Home Clinical Impression: Alcoholic intoxication, Fall, Closed head injury Condition: Stable Prescriptions: No Action No Known Home Medications RF: 0 Discharge Orders: Discharge ED (Routine); Ordered 09/01/21 Ordered By: Erickson Clement Discharge Diet: Usual diet Discharge Activity: Increase activity as tolerated Patient Instructions: Opioid Safety Activity Restrictions/Additional Instructions: Recommend abstinence from alcohol. Also recommend following up with outpatient treatment program such as [facility] or [facility] [phone]. 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
--- NOTE | 2021-09-01 07:52 | CT_ITS ---
WS: [id number] CT CERVICAL SPINE HISTORY: fall TECHNIQUE: Contiguous 2.5 mm axial imaging performed through the entire cervical spine. Sagittal and coronal reformats also performed. All CT scans at [facility] use at least one of these dose o ptimization techniques: automated exposure control; mA and/or kV adjustment per patient size (include s targeted exams where dose is matched to clinical indication); or iterative reconstruction. DLP: 632.17 mGy.cm COMPARISON: None available. Mild RIGHT curvature of the cervical spine. Posterior alignment is normal. Mild disc space narrowing and desiccation and osteophytosis. Craniocervical junction is normal. Odontoid is intact. Lateral mas ses of C1 and C2 are aligned. No cervical spine fractures. Facet joints are normally aligned. Mild LE FT facet joint narrowing due to osteophytes at C5-6 and C6-7. No central stenosis or acute-appearing disc protrusions. There is a very tiny central disc protrusion at C3-4 without encroachment or deform ity of the cervical cord. Lung apices are clear. CT/CT cervical spin wo con* [id number] IMPRESSION: 1. No acute cervical spine fracture. 2. Mild curvature of the cervical spine and mild spondylosis.
--- NOTE | 2021-09-01 07:52 | CT_ITS ---
WS: [id number] CT HEAD NONCONTRAST HISTORY: fall, LOC? TECHNIQUE: Contiguous axial imaging performed through the brain in 2.5 mm imaging. Bone and soft tiss ue windows. Sagittal and coronal reformats reviewed. All CT scans at [facility] use at least one of these dose optimization techniques: automated exposure control; mA and/or kV adjustment per pa tient size (includes targeted exams where dose is matched to clinical indication); or iterative recon struction. DLP: 1484.99 mGy.cm COMPARISON: 09/18/2017 No acute intracranial hemorrhage, midline shift or mass effect. Mild cerebral and cerebellar atrophy unchanged. No prior infarcts. Ventricles: Normal size with no hydrocephalus. Paranasal sinuses: As visualized are clear. Mastoid air cells: Well pneumatized. Calvarium and scalp: Skull is intact with no soft tissue edema or swelling. CT/CT head wo con* [id number] IMPRESSION: Stable noncontrast head CT. No acute hemorrhage. No fracture.
[2021-09-01 08:11] VITALS: BP 116/76; PULSE 68; RESP 18; O2SAT 97
[2021-09-01] MEDS: tetanus-dipt-pertussis 0.5 mL SDV IM (08:13)
[2021-09-01 08:14] LABS: Basophils # 0.1 10^3/uL (0.0-0.1); Basophils % 0.6 %; Eosinophils % 0.2 %; Hematocrit 50.1 % (42.0-52.0); Hemoglobin 16.8 g/dL (11.7-16.6); Lymphocytes # 2.3 10^3/uL (0.8-4.8); Lymphocytes % 26.5 %; Mean Corpuscular HGB Conc 33.5 g/dL (30.0-36.0); Mean Corpuscular Hemoglobin 33.7 pg (28.0-34.0); Mean Corpuscular Volume 100.4 fl (80-94); Mean Platelet Volume 10.6 fL (7.4-10.4); Monocytes # 0.7 10^3/uL (0.2-0.9); Neutrophils # 5.44 10^3/uL (1.8-7.7); Neutrophils % 64.2 %; Nucleated Red Blood Cells % 0 %; Platelet Count 182 10^3/cmm (130-400); Red Blood Count 4.99 10^6/uL (4.1-5.3); Red Cell Distribution Width 13.3 % (12.1-15.1); White Blood Count 8.5 10^3/uL (4.0-10.0)
--- NOTE | 2021-09-01 08:17 | PC.NURSE ---
Pt taken to CT at approximately 0815.
[2021-09-01 08:32] VITALS: BP 116/79; PULSE 63; RESP 18; O2SAT 96
[2021-09-01 08:48] LABS: Alanine Aminotransferase 21 U/L (0-41); Albumin Level 4.2 g/dL (3.5-5.2); Alkaline Phosphatase 54 IU/L (40-130); Anion Gap 16.6 (5-19); Aspartate Amino Transferase 28 U/L (0-40); Blood Urea Nitrogen 8 mg/dL (6-20); Calcium 8.8 mg/dL (8.5-10.5); Carbon Dioxide 25 mmol/L (22-29); Chloride 110 mmol/L (98-107); Globulin 2.7 g/dL (1.3-4.6); Glomerular Filtration Rate 179.8 mL/min (90-130); Glucose 114 mg/dL (65-115); Osmolality Calculated 305 mOsm/kg (285-295); Potassium 3.6 mmol/L (3.5-5.1); Sodium 148 mmol/L (136-145); Total Bilirubin 0.2 mg/dL (0.15-1.2); Total Protein 6.9 g/dL (6.6-8.7)
[2021-09-01 09:11] VITALS: BP 116/79; PULSE 70; RESP 17; O2SAT 96
== END 2021-09-01 09:12 | disposition home or self-care (01) ==
PROVIDERS: Emergency Provider Family Medicine
DX: F10.129 Alcohol abuse with intoxication, unspecified (principal); S09.8XXA Other specified injuries of head, initial encounter; F17.210 Nicotine dependence, cigarettes, uncomplicated; Z23 Encounter for immunization; W19.XXXA Unspecified fall, initial encounter; Y92.512 Supermarket, store or market as the place of occurrence of the external cause
CPT/HCPCS: 70450; 72125; 80053; 85025; 90471; 90715; 99283

== ENCOUNTER 2021-09-01 19:44 | Emergency (ER) | payer SELFPAY ==
[2021-09-01 20:12] VITALS: BP 114/79; PULSE 80; RESP 14; TEMP 36.6; O2SAT 97; BMI 23.6
[2021-09-01 20:17] VITALS: BP 114/79; PULSE 74; RESP 16; O2SAT 96
--- NOTE | 2021-09-01 20:18 | ED_ITS ---
Documented by User: LAM Gunn 09/02/21 02:41 HPI - Alcohol General: Chief Complaint: Alcohol Stated Complaint: ETOH Time Seen by Provider: 09/01/21 20:16 History of Present Illness: HPI narrative: Patient was brought in by EMS for needing evaluation. Law enforcement found the patient intoxicated in the park and contacted EMS for him to be brought to the ER for further evaluation. Patient been evaluated once today already for intoxication. Patient denies any suicidality. Patient is homeless at this time. Patient appears well. Patient appears no acute distress. Patient agreed to eat some food and drink some liquids other than alcohol. MD complaint: alcohol intoxication Review of Systems General: Reports: 10 or more systems reviewed and unremarkable except in HPI and below Psych: Reports: other (Alcohol intoxication) PFSH ED PFSH: Medical History History of alcoholism History of suicidal ideation Surgical History History of tonsillectomy Family History Mother Alcoholism Father Hypertension Social History Smoking and tobacco status: current every day smoker Alcohol intake: current Alcohol intake frequency: 3 or more drinks per day Alcohol type: hard liquor Physical Exam Const: COMMON NORMALS: no acute distress and patient oriented x3 GENERAL APPEARANCE: cooperative HENMT: COMMON NORMALS: TM's normal bilaterally and Normal external nose present HEAD & SCALP: other (Posterior scalp abrasion) NOSE: Normal external nose present TYMPANIC MEMBRANE: TM's normal bilaterally MOUTH: Normal oral and palatal mucosa present THROAT: posterior oropharynx normal Eye: GENERAL EYE: appearance normal, both eyes and all related structures Neck/C-Spine: COMMON NORMALS: full ROM Lymph: LYMPHATIC: no lymphadenopathy noted Chest: COMMONS NORMALS: normal inspection of the chest Resp: COMMON NORMALS: normal respiratory effort EFFORT & INSPECTION: Yes able to speak in complete sentences Cardio: COMMON NORMALS: regular rate and regular rhythm RATE: regular rate RHYTHM: regular rhythm GI: COMMON NORMALS: non-tender : COMMON NORMALS: Yes no CVA tenderness BLADDER/KIDNEY EXAM: Yes no CVA tenderness Back/Pelvis: COMMON NORMALS: no CVA tenderness and thoracic and lumbar spine normal to inspection Extremity: COMMON NORMALS: normal to inspection Neuro: COMMON NORMALS: patient oriented x3 and moves all extremities Psych: COMMON NORMALS: mental status grossly normal and cooperative Skin: NARRATIVE SKIN EXAM: Abrasion to the right knee. Course ED course: 2109, reviewed with Dr. Bean regarding patient's elevated EtOH of 530. He recommended monitoring patient for seizure over the next few hours. Patient is resting at this time and appears in no acute distress. 2209, patient awakened and was wanting to leave. Patient still seems intoxicated. I had Dr. Jones assessed the patient and he discussed with the patient to get him to stay longer for his safety. We put in for patient to have a nicotine patch to control his cigarette craving. 00 30, patient is resting well, response to light touch. Denies any complaints at this time. 0155, patient continues to sleep, no emesis, arrouses to light touch. 0235, Patient awakened is a much more alert and responsive to questions. Patient is able to ambulate in the room without any difficulty. Patient is eating and drinking well. No acute distress is noted. Patient feels comfortable to go home. Vital Signs: Vital signs: Vital Signs Temperature 97.9 F 09/01/21 20:12 Pulse Rate 74 09/01/21 20:17 Respiratory Rate 16 09/01/21 20:17 Blood Pressure 114/79 09/01/21 20:17 Pulse Oximetry 96 09/01/21 20:17 MDM - Alcohol MDM Narrative: Medical decision making narrative: 46-year-old male patient was at a local park and law enforcement had seen him drinking all day. They were concerned for his safety and called EMS for him to be evaluated in the ER. Patient responded to questioning. Physically patient appeared well he did have some abrasions to his right knee and to his scalp. Review of the record noted that patient had been [facility] this [place] and evaluated for a fall with said injuries. No abnormality was noted. Vital signs were normal. Patient denied any complaints or suicidal thoughts at this time. Differential diagnosis includes but not limited to alcohol intoxication, substance abuse, major depression disorder. Patient was monitored for 7 hours. Patient became more responsive throughout the shift. Patient wished to go home. Respirations were even lungs are clear to auscultation. Vital signs were normal. We had checked of the lab and patient had a elevated blood alcohol at 500. Remainder of labs were unremarkable. Reviewed patient with Dr. Bean who believed patient was well enough to go home as long as he was able to ambulate and talk and recall date and time. Patient was able to call for a ride and was discharged to home. Lab Data: Labs: Lab Results 09/01/21 09/01/21 09/01/21 19:37 19:37 22:40 WBC 10.7 10^3/uL H 10 ^3/uL (4.0-10.0) RBC 4.80 10^6/uL 10^6 /uL (4.1-5.3) Hgb 16.2 g/dL g/dL (11.7-16.6) Hct 48.0 % % (42.0-52.0) MCV 100.0 fl H fl (80-94) MCH 33.8 pg pg (28.0-34.0) MCHC 33.8 g/dL g/dL (30.0-36.0) RDW 13.2 % % (12.1-15.1) Plt Count 192 10^3/cmm 10^3 /cmm (130-400) MPV 10.7 fL H fL (7.4-10.4) Neut % (Auto) 65.2 % % Lymph % (Auto) 24.5 % % [place] % (Auto) 9.0 % % Eos % (Auto) 0.1 % % Baso % (Auto) 0.6 % % Neut # (Auto) 6.95 10^3/uL 10^3 /uL (1.8-7.7) Lymph # (Auto) 2.6 10^3/uL 10^3/ uL (0.8-4.8) [place] # (Auto) 1.0 10^3/uL H 10^ 3/uL (0.2-0.9) Eos # (Auto) 0.0 10^3/uL 10^3/ uL (0.0-0.8) Baso # (Auto) 0.1 10^3/uL 10^3/ uL (0.0-0.1) Nucleated RBC % (a uto) 0 % % Nucleated RBCs # 0.0 /100WBC /100W BC Sodium 144 mmol/L mmol/L (136-145) Potassium 3.3 mmol/L L mmol /L (3.5-5.1) Chloride 105 mmol/L mmol/L (98-107) Carbon Dioxide 25 mmol/L mmol/L (22-29) Anion Gap 17.3 (5-19) BUN 10 mg/dL mg/dL (6-20) Creatinine 0.6 mg/dL L mg/dL (0.7-1.2) GFR Calculation 145.7 mL/min H mL /min (90-130) Glucose 132 mg/dL H mg/dL (65-115) Calculated Osmolal ity 299 mOsm/kg H mOs m/kg (285-295) Calcium 8.4 mg/dL L mg/dL (8.5-10.5) Total Bilirubin 0.2 mg/dL mg/dL (0.15-1.2) AST 33 U/L U/L (0-40) ALT 22 U/L U/L (0-41) Alkaline Phosphata se 55 IU/L IU/L (40-130) Total Protein 6.7 g/dL g/dL (6.6-8.7) Albumin 4.1 g/dL g/dL (3.5-5.2) Globulin 2.6 g/dL g/dL (1.3-4.6) Salicylates 0.5 mg/dL L mg/dL (3-10) Urine Opiates Scre en Negative ng/mL ng /mL (Negative) Acetaminophen < 5.0 ug/mL L ug/ mL (10-30) Ur Barbiturates Sc reen Negative ng/mL ng /mL (Negative) Ur Phencyclidine S crn Negative ng/mL ng /mL (Negative) Ur Amphetamines Sc reen Negative ng/mL ng /mL (Negative) U Benzodiazepines Scrn Negative ng/mL ng /mL (Negative) Urine Cocaine Scre en Negative ng/mL ng /mL (Negative) U Marijuana (THC) Screen Negative ng/mL ng /mL (Negative) Ethyl Alcohol 530 mg/dL H* mg/d L (0-10) Discharge Plan Discharge Patient Disposition: Home Clinical Impression: Alcoholic intoxication Qualifiers: Complication of substance-induced condition: uncomplicated Qualified Code(s): F10.920 - Alcohol use, unspecified with intoxication, uncomplicated Condition: Stable Prescriptions: No Action No Known Home Medications RF: 0 Discharge Orders: Discharge ED (Routine); Ordered 09/02/21 Ordered By: Dandy Frias Discharge Diet: Usual diet Discharge Activity: Increase activity as tolerated Patient Instructions: Opioid Safety Activity Restrictions/Additional Instructions: Follow-up with primary care. 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 Documented by User: Gabriele Bean MD 09/05/21 20:09 HPI - Alcohol General: Chief Complaint: Alcohol Stated Complaint: ETOH Time Seen by Provider: 09/01/21 20:16 PFSH ED PFSH: Medical History History of alcoholism History of suicidal ideation Surgical History History of tonsillectomy Family History Mother Alcoholism Father Hypertension Social History Smoking and tobacco status: current every day smoker Alcohol intake: current Alcohol intake frequency: 3 or more drinks per day Alcohol type: hard liquor Course Vital Signs: Vital signs: Vital Signs Temperature 97.9 F 09/01/21 20:12 Pulse Rate 74 09/01/21 20:17 Respiratory Rate 16 09/01/21 20:17 Blood Pressure 114/79 09/01/21 20:17 Pulse Oximetry 96 09/01/21 20:17 MDM - Alcohol Lab Data: Labs: Lab Results 09/01/21 09/01/21 09/01/21 19:37 19:37 22:40 WBC 10.7 10^3/uL H 10 ^3/uL (4.0-10.0) RBC 4.80 10^6/uL 10^6 /uL (4.1-5.3) Hgb 16.2 g/dL g/dL (11.7-16.6) Hct 48.0 % % (42.0-52.0) MCV 100.0 fl H fl (80-94) MCH 33.8 pg pg (28.0-34.0) MCHC 33.8 g/dL g/dL (30.0-36.0) RDW 13.2 % % (12.1-15.1) Plt Count 192 10^3/cmm 10^3 /cmm (130-400) MPV 10.7 fL H fL (7.4-10.4) Neut % (Auto) 65.2 % % Lymph % (Auto) 24.5 % % [place] % (Auto) 9.0 % % Eos % (Auto) 0.1 % % Baso % (Auto) 0.6 % % Neut # (Auto) 6.95 10^3/uL 10^3 /uL (1.8-7.7) Lymph # (Auto) 2.6 10^3/uL 10^3/ uL (0.8-4.8) [place] # (Auto) 1.0 10^3/uL H 10^ 3/uL (0.2-0.9) Eos # (Auto) 0.0 10^3/uL 10^3/ uL (0.0-0.8) Baso # (Auto) 0.1 10^3/uL 10^3/ uL (0.0-0.1) Nucleated RBC % (a uto) 0 % % Nucleated RBCs # 0.0 /100WBC /100W BC Sodium 144 mmol/L mmol/L (136-145) Potassium 3.3 mmol/L L mmol /L (3.5-5.1) Chloride 105 mmol/L mmol/L (98-107) Carbon Dioxide 25 mmol/L mmol/L (22-29) Anion Gap 17.3 (5-19) BUN 10 mg/dL mg/dL (6-20) Creatinine 0.6 mg/dL L mg/dL (0.7-1.2) GFR Calculation 145.7 mL/min H mL /min (90-130) Glucose 132 mg/dL H mg/dL (65-115) Calculated Osmolal ity 299 mOsm/kg H mOs m/kg (285-295) Calcium 8.4 mg/dL L mg/dL (8.5-10.5) Total Bilirubin 0.2 mg/dL mg/dL (0.15-1.2) AST 33 U/L U/L (0-40) ALT 22 U/L U/L (0-41) Alkaline Phosphata se 55 IU/L IU/L (40-130) Total Protein 6.7 g/dL g/dL (6.6-8.7) Albumin 4.1 g/dL g/dL (3.5-5.2) Globulin 2.6 g/dL g/dL (1.3-4.6) Salicylates 0.5 mg/dL L mg/dL (3-10) Urine Opiates Scre en Negative ng/mL ng /mL (Negative) Acetaminophen < 5.0 ug/mL L ug/ mL (10-30) Ur Barbiturates Sc reen Negative ng/mL ng /mL (Negative) Ur Phencyclidine S crn Negative ng/mL ng /mL (Negative) Ur Amphetamines Sc reen Negative ng/mL ng /mL (Negative) U Benzodiazepines Scrn Negative ng/mL ng /mL (Negative) Urine Cocaine Scre en Negative ng/mL ng /mL (Negative) U Marijuana (THC) Screen Negative ng/mL ng /mL (Negative) Ethyl Alcohol 530 mg/dL H* mg/d L (0-10) Discharge Plan Discharge Patient Disposition: Home Clinical Impression: Alcoholic intoxication Qualifiers: Complication of substance-induced condition: uncomplicated Qualified Code(s): F10.920 - Alcohol use, unspecified with intoxication, uncomplicated Condition: Stable Prescriptions: No Action No Known Home Medications RF: 0 Discharge Orders: Discharge ED (Routine); Ordered 09/02/21 Ordered By: Dandy Frias Discharge Diet: Usual diet Discharge Activity: Increase activity as tolerated Patient Instructions: Opioid Safety Activity Restrictions/Additional Instructions: Follow-up with primary care. 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
[2021-09-01 20:23] LABS: Basophils # 0.1 10^3/uL (0.0-0.1); Basophils % 0.6 %; Eosinophils % 0.1 %; Hemoglobin 16.2 g/dL (11.7-16.6); Lymphocytes # 2.6 10^3/uL (0.8-4.8); Lymphocytes % 24.5 %; Mean Corpuscular HGB Conc 33.8 g/dL (30.0-36.0); Mean Corpuscular Hemoglobin 33.8 pg (28.0-34.0); Mean Platelet Volume 10.7 fL (7.4-10.4); Neutrophils # 6.95 10^3/uL (1.8-7.7); Neutrophils % 65.2 %; Nucleated Red Blood Cells % 0 %; Platelet Count 192 10^3/cmm (130-400); Red Cell Distribution Width 13.2 % (12.1-15.1); White Blood Count 10.7 10^3/uL (4.0-10.0)
[2021-09-01 20:57] LABS: Alanine Aminotransferase 22 U/L (0-41); Albumin Level 4.1 g/dL (3.5-5.2); Alkaline Phosphatase 55 IU/L (40-130); Anion Gap 17.3 (5-19); Aspartate Amino Transferase 33 U/L (0-40); Blood Urea Nitrogen 10 mg/dL (6-20); Calcium 8.4 mg/dL (8.5-10.5); Carbon Dioxide 25 mmol/L (22-29); Chloride 105 mmol/L (98-107); Creatinine Clr Calc Pharmacy 162.1536; Globulin 2.6 g/dL (1.3-4.6); Glomerular Filtration Rate 145.7 mL/min (90-130); Glucose 132 mg/dL (65-115); Osmolality Calculated 299 mOsm/kg (285-295); Potassium 3.3 mmol/L (3.5-5.1); Salicylate 0.5 mg/dL (3-10); Sodium 144 mmol/L (136-145); Total Bilirubin 0.2 mg/dL (0.15-1.2); Total Protein 6.7 g/dL (6.6-8.7)
[2021-09-01 20:58] LABS: Acetaminophen < 5.0 ug/mL (10-30)
[2021-09-01 21:06] LABS: Alcohol Level 530 mg/dL (0-10)
[2021-09-01] MEDS: nicotine 14 mg Patch 1 PATCH TRANSDERMA (22:43)
[2021-09-01 22:59] LABS: Amphetamines Screen Urine Negative (Negative); Barbiturates Screen Urine Negative (Negative); Benzodiazepines Screen Urine Negative (Negative); Cocaine Screen Urine Negative (Negative); Opiate Screen Urine Negative (Negative); PCP Screen Urine Negative (Negative); THC Screen Urine Negative (Negative)
== END 2021-09-02 02:48 | disposition home or self-care (01) ==
PROVIDERS: Emergency Provider Nurse Practitioner Family
DX: F10.920 Alcohol use, unspecified with intoxication, uncomplicated (principal); F17.210 Nicotine dependence, cigarettes, uncomplicated; Y90.8 Blood alcohol level of 240 mg/100 ml or more
CPT/HCPCS: 80053; 80306; 80307; 85025; 99283

== ENCOUNTER 2021-09-11 17:10 | Emergency (ER) | payer SELFPAY ==
[2021-09-11] VITALS (7 sets, daily range): BP systolic 100–124; BP diastolic 72–88; PULSE 68–88; RESP 14–18; TEMP 36.5–36.6; O2SAT 92–99; BMI 25.0
--- NOTE | 2021-09-11 17:41 | W.ED.ALCOHOL ---
HPI - Alcohol General: Chief Complaint: Alcohol Stated Complaint: ETOH, AMS Time Seen by Provider: 09/11/21 17:28 History of Present Illness: HPI narrative: Patient was transported by EMS. He apparently was found drinking and intoxicated today was transported to the emergency department. He apparently has had frequent emergency department visits for similar occurrences. Patient cannot remember when he took his last drink. He states he has no plans on harming himself at this time. He denies any other associated symptoms or complaints or concerns. MD complaint: alcohol intoxication Last drink: Unknown Chronic alcohol use: Yes Associated symptoms: Reports no associated symptoms; Deny abdominal pain, nausea, suicidal ideation or vomiting Review of Systems Narrative: Patient is alert. He will answer questions but not any great detail. He has some slurring of speech but again his speech is generally goal-directed. Const: Denies: fever(s), chills or body aches Eyes: Denies: change in vision ENMT: Denies: throat pain, odynophagia, nasal obstruction or epistaxis Card: Denies: chest pain, palpitations or irregular heart rhythm Resp: Denies: dyspnea, productive cough or non-productive cough GI: Denies: abdominal pain, nausea or vomiting : Denies: flank pain, difficulty urinating or dysuria Musc: Denies: neck pain, back pain, extremity pain or extremity swelling Skin/Breast: Denies: rash Neuro: Denies: headache(s), numbness in extremities, weakness in extremities or sensory changes Psych: Denies: anxiety, change in appetite, irritability, paranoia, visual hallucinations, auditory hallucinations, tactile hallucinations, suicidal ideation or homicidal ideation [facility] ED PFSH: Medical History History of alcoholism History of suicidal ideation Surgical History History of tonsillectomy Family History Mother Alcoholism Father Hypertension Social History Smoking and tobacco status: current every day smoker Alcohol intake: current Alcohol intake frequency: 3 or more drinks per day Alcohol type: hard liquor Physical Exam Const: COMMON NORMALS: patient oriented x3 GENERAL APPEARANCE: cooperative ORIENTATION/CONSCIOUSNESS: Yes awake and Yes oriented to person HENMT: COMMON NORMALS: normocephalic, atraumatic and Normal external nose present HEAD & SCALP: normocephalic and atraumatic FACE & SINUS: normal facial exam NOSE: Normal external nose present MOUTH: Normal oral and palatal mucosa present Eye: COMMON NORMALS: Equal, round and reactive pupils present, EOMs intact bilaterally and negative for conjunctivae normal (Injected) CONJUNCTIVA: No conjunctivae normal (Injected) PUPIL: Yes Equal, round and reactive pupils present Neck/C-Spine: COMMON NORMALS: full ROM and no lymphadenopathy Chest: COMMONS NORMALS: normal inspection of the chest Cardio: COMMON NORMALS: regular rhythm, No murmurs present (Cardio) and Peripheral pulses 2+ throughout RHYTHM: regular rhythm PERIPHERAL PULSES: Peripheral pulses 2+ throughout GI: COMMON NORMALS: Normal to inspection, nondistended, normoactive bowel sounds present and Soft to palpation PALPATION: Yes Soft to palpation : COMMON NORMALS: Yes no CVA tenderness BLADDER/KIDNEY EXAM: Yes no CVA tenderness Back/Pelvis: COMMON NORMALS: no CVA tenderness, thoracic and lumbar spine normal to inspection and no thoracic nor lumbar tenderness THORACIC SPINE/UPPER BACK: Yes normal to inspection Extremity: COMMON NORMALS: normal to inspection, full ROM, capillary refill normal and no clubbing, cyanosis or edema Neuro: COMMON NORMALS: patient oriented x3, moves all extremities, no focal motor deficits and no sensory deficits noted SENSORIUM/ORIENTATION: Yes oriented to person Course Reevaluation(s): Reevaluation #1: The patient is currently stable as regards to vital signs. He is currently sleeping. Our plan in the emergency department is to continue to observe him until he either: 1. has a safe ride to a safe facility or 2. is sober that he can ambulate and attend to his activities of daily living without danger. He has not voiced any suicidality during this evaluation. Reevaluation #2: Remains clinically stable. Again the plan remains to allow this patient to sleep it off for period of time and then it at that point he will be safe to be discharged. Vital Signs: Vital signs: Vital Signs Temperature 97.7 F 09/11/21 17:22 Pulse Rate 76 09/11/21 20:04 Respiratory Rate 18 09/11/21 20:04 Blood Pressure 100/72 09/11/21 20:04 Pulse Oximetry 92 09/11/21 20:04 Discharge Plan Discharge Clinical Impression: Alcoholic intoxication Qualifiers: Complication of substance-induced condition: uncomplicated Qualified Code(s): F10.920 - Alcohol use, unspecified with intoxication, uncomplicated Condition: Stable Prescriptions: No Action No Known Home Medications RF: 0 Discharge Diet: Usual diet Discharge Activity: Resume usual activity Patient Instructions: Alcohol Intoxication (ED) Activity Restrictions/Additional Instructions: Make an attempt to stop drinking alcohol. Enlist the assistance of alcoholics anonymous, family support, etc. 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
== END 2021-09-11 22:55 | disposition home or self-care (01) ==
PROVIDERS: Emergency Provider Emergency Medicine
DX: F10.920 Alcohol use, unspecified with intoxication, uncomplicated (principal); F17.210 Nicotine dependence, cigarettes, uncomplicated
CPT/HCPCS: 99284

== ENCOUNTER 2021-09-12 13:55 | Emergency (ER) | payer SELFPAY ==
[2021-09-12 14:05] VITALS: BP 114/81; PULSE 74; RESP 18; TEMP 36.7; O2SAT 94; BMI 23.5
--- NOTE | 2021-09-12 14:08 | XR_ITS ---
WS: [id number] XR hip RT 2-3V wo/w pel* [id number] REASON FOR EXAM: pain FINDINGS: Mild/moderate narrowing of the right hip joint space with small acetabular marginal osteophyte. No fracture or other focal bone abnormality. No soft tissue abnormality. XR/XR hip RT 2-3V wo/w pel* [id number] IMPRESSION: Mild mild/moderate osteoarthritis of the right hip. No acute abnormality.
--- NOTE | 2021-09-12 14:11 | W.ED.GENADLT ---
HPI - General Adult General: Chief complaint: General Medical Stated complaint: INTOXICATION Time Seen by Provider: 09/12/21 13:59 History of Present Illness: HPI narrative: 46-year-old male presents to the emergency room with acute intoxication. Lázaro STODDARD had done at health and welfare check on him earlier in the day he continued to drink he actually took several shots in front of them he was found minimally responsive at a local convenience store EMS was called transported patient here he readily admits he has been drinking heavily and is intoxicated his only complaint is right hip pain. He is not interested in much for an evaluation beyond his hip. He has some bruising on his right upper eyelid he cannot really recall when that happened. No other evidence of obvious trauma. Onset (ago): unknown Location: head, right and lower extremity (hip) Severity: mild Relieving factors: immobilization Exacerbating factors: movement Associated symptoms: Reports weakness; Deny chest pain, confusion, cough, diaphoresis, decreased appetite, dyspnea, fevers/chills, headache(s), malaise, nausea, rash, palpitations, seizures, short of breath, syncope or vomiting Treatments prior to arrival: none Review of Systems Const: Denies: malaise or diaphoresis ENMT: Denies: throat pain, ear or mastoid pain, nasal discharge or nasal congestion Card: Denies: chest pain, palpitations or syncope Resp: Denies: dyspnea GI: Denies: nausea or vomiting : Denies: flank pain, dysuria, urinary frequency or urinary urgency Skin/Breast: Denies: rash Neuro: Denies: headache(s) or confusion [facility] ED PFSH: Medical History History of alcoholism History of suicidal ideation Surgical History History of tonsillectomy Family History Mother Alcoholism Father Hypertension Social History Smoking and tobacco status: current every day smoker Alcohol intake: current Alcohol intake frequency: 3 or more drinks per day Alcohol type: hard liquor Physical Exam Const: COMMON NORMALS: no acute distress GENERAL APPEARANCE: cooperative and comfortable ORIENTATION/CONSCIOUSNESS: Yes awake HENMT: COMMON NORMALS: normocephalic, atraumatic and hearing grossly normal bilaterally HEAD & SCALP: normocephalic and atraumatic Neck/C-Spine: COMMON NORMALS: no JVD Resp: COMMON NORMALS: normal respiratory effort, No retractions, No use of accessory muscles and clear to auscultation bilaterally AUSCULTATION: clear to auscultation bilaterally Cardio: COMMON NORMALS: no JVD, regular rate, regular rhythm and No murmurs present (Cardio) RATE: regular rate RHYTHM: regular rhythm GI: COMMON NORMALS: Soft to palpation and No hepatosplenomegaly present AUSCULTATION: Yes normoactive bowel sounds PALPATION: Yes Soft to palpation, No Tenderness to palpation present (GI), No Guarding due to palpation present (GI) and Yes No hepatosplenomegaly present Extremity: COMMON NORMALS: normal to inspection, capillary refill normal, no clubbing, cyanosis or edema, no calf tenderness and no pedal edema Skin: COMMON NORMALS: no rashes or lesions noted GENERAL SKIN EXAM: no rashes or lesions noted Course Vital Signs: Vital signs: Vital Signs Temperature 98.1 F 09/12/21 14:05 Pulse Rate 74 09/12/21 14:54 Respiratory Rate 17 09/12/21 14:54 Blood Pressure 128/74 09/12/21 14:54 Pulse Oximetry 98 09/12/21 14:54 MDM - General Adult MDM Narrative: Medical decision making narrative: X-ray of the right hip is negative. Patient has no desire to stop drinking. He is awake alert now ambulatory. He does not wish any further evaluation. He repeatedly denies any suicidal homicidal ideation we will go ahead and discharge him and encouraged him to stop drinking. Discharge Plan Discharge Patient Disposition: Home Clinical Impression: Alcoholic intoxication, Acute pain of right hip Condition: Stable Prescriptions: No Action No Known Home Medications RF: 0 Discharge Orders: Discharge ED (Routine); Ordered 09/12/21 Ordered By: Erickson Clement Discharge Diet: Usual diet Discharge Activity: Limit activity as instructed Patient Instructions: Opioid Safety Activity Restrictions/Additional Instructions: Do not drink alcohol. Coding Level of Care Code ED Director Of Vendor Management for Remington Fwd Exam Comprehensive
[2021-09-12 14:54] VITALS: BP 128/74; PULSE 74; RESP 17; O2SAT 98
== END 2021-09-12 14:45 | disposition home or self-care (01) ==
PROVIDERS: Emergency Provider Family Medicine
DX: F10.129 Alcohol abuse with intoxication, unspecified (principal); M25.551 Pain in right hip; F17.210 Nicotine dependence, cigarettes, uncomplicated
CPT/HCPCS: 73502; 99282

== ENCOUNTER 2021-11-05 12:20 | Emergency (ER) | payer SELFPAY ==
[2021-11-05 12:28] VITALS: BP 107/74; PULSE 80; RESP 15; TEMP 36.7; O2SAT 98; BMI 25.8
--- NOTE | 2021-11-05 12:38 | ED_ITS ---
HPI - Alcohol General: Chief Complaint: Alcohol Stated Complaint: FALL, ETOH Time Seen by Provider: 11/05/21 12:27 History of Present Illness: HPI narrative: 46 yo presents emergency room with complaint of a fall. Patient is acutely intoxicated. Had multiple hospital visits for acute intoxication related to falls. He cannot recall any of the details he is quite a bit of abrasions on his nose on the right side of his upper lip and forehead. He states he had no loss of consciousness. He denies any neck pain. He denies any other injuries. Denies any homicidal or suicidal ideation. 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 Chronic alcohol use: Yes Previous visits for alcohol intoxication: Yes Recent trauma: Yes Associated symptoms: Reports depression; Deny abdominal pain, diaphoresis, hematemesis, involuntary movements, melena, nausea, seizure-like activity, suicidal ideation, syncope or vomiting Treatments prior to arrival: none Review of Systems Const: Denies: diaphoresis ENMT: Denies: throat pain, ear or mastoid pain, nasal discharge or nasal congestion Card: Denies: syncope Resp: Denies: dyspnea, productive cough or non-productive cough GI: Denies: abdominal pain, nausea, vomiting, hematemesis or melena : Denies: flank pain, dysuria, urinary frequency or urinary urgency Skin/Breast: Denies: rash or pruritus Neuro: Denies: seizure-like activity or involuntary movements Psych: Reports: depression; Denies: suicidal ideation [facility] ED PFSH: Medical History History of alcoholism History of suicidal ideation Surgical History History of tonsillectomy Family History Mother Alcoholism Father Hypertension Social History Smoking and tobacco status: current every day smoker Alcohol intake: current Alcohol intake frequency: 3 or more drinks per day Alcohol type: hard liquor Physical Exam Const: COMMON NORMALS: no acute distress GENERAL APPEARANCE: cooperative and comfortable ORIENTATION/CONSCIOUSNESS: Yes awake HENMT: COMMON NORMALS: normocephalic, atraumatic, hearing grossly normal bilaterally, external ears normal, EAC's normal, TM's normal bilaterally, Normal nasal mucous membranes and turbinates present, moist oral mucous membranes and oropharynx normal HEAD & SCALP: normocephalic and atraumatic NOSE: Normal nasal mucous membranes and turbinates present EXTERNAL EAR: Yes external ears normal EXTERNAL AUDITORY CANAL: EAC's normal TYMPANIC MEMBRANE: TM's normal bilaterally Neck/C-Spine: COMMON NORMALS: no JVD Resp: COMMON NORMALS: normal respiratory effort, No retractions, No use of ac cessory muscles and clear to auscultation bilaterally AUSCULTATION: clear to auscultation bilaterally Cardio: COMMON NORMALS: no JVD, regular rate, regular rhythm and No murmurs present (Cardio) RATE: regular rate RHYTHM: regular rhythm GI: COMMON NORMALS: Soft to palpation and No hepatosplenomegaly present AUSCULTATION: Yes normoactive bowel sounds PALPATION: Yes Soft to palpation, No Tenderness to palpation present (GI), No Guarding due to palpation present (GI) and Yes No hepatosplenomegaly present Extremity: COMMON NORMALS: normal to inspection, capillary refill normal, no clubbing, cyanosis or edema, no calf tenderness and no pedal edema Skin: NARRATIVE SKIN EXAM: Abrasions on the face and nose Course Vital Signs: Vital signs: Vital Signs Temperature 98.0 F 11/05/21 12:28 Pulse Rate 80 11/05/21 12:28 Respiratory Rate 15 11/05/21 12:28 Blood Pressure 107/74 11/05/21 12:28 Pulse Oximetry 98 11/05/21 12:28 MDM - Alcohol MDM Narrative: Medical decision making narrative: Recommend abstinence from alcohol. Encouraged him to consider going to alcoholics anonymous meetings or participating in outpatient program or even an inpatient program at [facility]. Patient states he wishes to stop drinking but does not want to discuss any of the details and is not interested in any contact information. Lab Data: Labs: Lab Results 11/05/21 11/05/21 13:39 13:39 WBC 7.4 10^3/uL 10^3/ uL (4.0-10.0) RBC 5.12 10^6/uL 10^6 /uL (4.1-5.3) Hgb 17.0 g/dL H g/dL (11.7-16.6) Hct 50.4 % % (42.0-52.0) MCV 98.4 fl H fl (80-94) MCH 33.2 pg pg (28.0-34.0) MCHC 33.7 g/dL g/dL (30.0-36.0) RDW 12.9 % % (12.1-15.1) Plt Count 297 10^3/cmm 10^3 /cmm (130-400) MPV 9.8 fL fL (7.4-10.4) Neut % (Auto) 54.7 % % Lymph % (Auto) 36.8 % % [place] % (Auto) 7.2 % % Eos % (Auto) 0.1 % % Baso % (Auto) 0.8 % % Neut # (Auto) 4.03 10^3/uL 10^3 /uL (1.8-7.7) Lymph # (Auto) 2.7 10^3/uL 10^3/ uL (0.8-4.8) [place] # (Auto) 0.5 10^3/uL 10^3/ uL (0.2-0.9) Eos # (Auto) 0.0 10^3/uL 10^3/ uL (0.0-0.8) Baso # (Auto) 0.1 10^3/uL 10^3/ uL (0.0-0.1) Nucleated RBC % (a uto) 0 % % Nucleated RBCs # 0.0 /100WBC /100W BC Sodium 147 mmol/L H mmol /L (136-145) Potassium 4.0 mmol/L mmol/L (3.5-5.1) Chloride 109 mmol/L H mmol /L (98-107) Carbon Dioxide 24 mmol/L mmol/L (22-29) Anion Gap 18.0 (5-19) BUN 5 mg/dL L mg/dL (6-20) Creatinine 0.7 mg/dL mg/dL (0.7-1.2) GFR Calculation 122.0 mL/min mL/m in (90-130) Glucose 97 mg/dL mg/dL (65-115) Calculated Osmolal ity 301 mOsm/kg H mOs m/kg (285-295) Calcium 8.1 mg/dL L mg/dL (8.5-10.5) Total Bilirubin 0.2 mg/dL mg/dL (0.15-1.2) AST 15 U/L U/L (0-40) ALT 9 U/L U/L (0-41) Alkaline Phosphata se 62 IU/L IU/L (40-130) Total Protein 6.4 g/dL L g/dL (6.6-8.7) Albumin 4.2 g/dL g/dL (3.5-5.2) Globulin 2.2 g/dL g/dL (1.3-4.6) Discharge Plan Discharge Patient Disposition: Home Clinical Impression: Alcoholic intoxication, Fall Condition: Stable Prescriptions: No Action No Known Home Medications RF: 0 Discharge Orders: Discharge ED (Routine); Ordered 11/05/21 Ordered By: Erickson Clement Patient Instructions: Opioid Safety Activity Restrictions/Additional Instructions: Recommend alcohol abstinence participation in program to pursue this goal. Coding Level of Care Code ED Garde Manger for Remington Fwd Exam Detailed
--- NOTE | 2021-11-05 12:47 | CT_ITS ---
WS: [id number] CT HEAD TECHNIQUE: Noncontrast CT of the head obtained from the skullbase to the vertex. CLINICAL INFORMATION: trauma COMPARISON: CT September 01, 2021 DLP: 908.[address] scans at [facility] use at least one of these dose optimization techniques: automated e xposure control; mA and/or kV adjustment per patient size (includes targeted exams where dose is matc hed to clinical indication); or iterative reconstruction. FINDINGS: No evidence of intracranial hemorrhage or mass effect. Ventricular system and basal cisterns are hoffman nt. No extra-axial fluid collections. No evidence of mass or mass effect. Normal guthrie-white different iation. Paranasal sinuses and mastoid air cells are well aerated. . Soft tissue edema overlying the right fro ntal calvarium. No visualized fractures. CT/CT head wo con* [id number] IMPRESSION: 1. No evidence of intracranial hemorrhage or mass effect. 2. Soft tissue edema overlying the right frontal calvarium. No visualized frac tures. 3. No acute intracranial findings.
--- NOTE | 2021-11-05 12:47 | CT_ITS ---
WS: [id number] CT CERVICAL TRAUMA TECHNIQUE: Noncontrast CT of the cervical spine with coronal and sagittal reformatted images. CLINICAL INFORMATION: fall COMPARISON: September 01, 2021 DLP: 1603.[address] scans at [facility] use at least one of these dose optimization techniques: automated e xposure control; mA and/or kV adjustment per patient size (includes targeted exams where dose is matc hed to clinical indication); or iterative reconstruction. FINDINGS: Straightening of the normal cervical lordosis. Mild spondylitic changes. Slight anterior hypertrophic changes upper cervical spine. Normal craniocervical junction. Normal C1-C2 articulation. Dens is nor mal in appearance. Normal occipital condyles. No high-grade spinal canal narrowing. Normal C1 ring. N o evidence of acute fracture or dislocation. Normal prevertebral soft tissues. Mastoids air cells are well aerated. CT/CT cervical spin wo con* [id number] IMPRESSION: No evidence of acute fracture or dislocation.
--- NOTE | 2021-11-05 13:32 | PC.PHAR ---
pt states he takes no rx or otc medications-no meds pull up on ext med history
[2021-11-05 13:46] LABS: Basophils # 0.1 10^3/uL (0.0-0.1); Basophils % 0.8 %; Eosinophils % 0.1 %; Hematocrit 50.4 % (42.0-52.0); Lymphocytes # 2.7 10^3/uL (0.8-4.8); Lymphocytes % 36.8 %; Mean Corpuscular HGB Conc 33.7 g/dL (30.0-36.0); Mean Corpuscular Hemoglobin 33.2 pg (28.0-34.0); Mean Corpuscular Volume 98.4 fl (80-94); Mean Platelet Volume 9.8 fL (7.4-10.4); Monocytes # 0.5 10^3/uL (0.2-0.9); Monocytes % 7.2 %; Neutrophils # 4.03 10^3/uL (1.8-7.7); Neutrophils % 54.7 %; Nucleated Red Blood Cells % 0 %; Platelet Count 297 10^3/cmm (130-400); Red Blood Count 5.12 10^6/uL (4.1-5.3); Red Cell Distribution Width 12.9 % (12.1-15.1); White Blood Count 7.4 10^3/uL (4.0-10.0)
[2021-11-05 14:08] LABS: Alanine Aminotransferase 9 U/L (0-41); Albumin Level 4.2 g/dL (3.5-5.2); Alkaline Phosphatase 62 IU/L (40-130); Aspartate Amino Transferase 15 U/L (0-40); Blood Urea Nitrogen 5 mg/dL (6-20); Calcium 8.1 mg/dL (8.5-10.5); Carbon Dioxide 24 mmol/L (22-29); Chloride 109 mmol/L (98-107); Creatinine Clr Calc Pharmacy 131.1852; Globulin 2.2 g/dL (1.3-4.6); Glucose 97 mg/dL (65-115); Osmolality Calculated 301 mOsm/kg (285-295); Sodium 147 mmol/L (136-145); Total Bilirubin 0.2 mg/dL (0.15-1.2); Total Protein 6.4 g/dL (6.6-8.7)
[2021-11-05] MEDS: tetanus-dipt-pertussis 0.5 mL SDV IM (14:45)
== END 2021-11-05 14:49 | disposition home or self-care (01) ==
PROVIDERS: Emergency Provider Family Medicine
DX: F10.129 Alcohol abuse with intoxication, unspecified (principal); F17.210 Nicotine dependence, cigarettes, uncomplicated; W19.XXXA Unspecified fall, initial encounter; S00.31XA Abrasion of nose, initial encounter; S00.511A Abrasion of lip, initial encounter; S00.81XA Abrasion of other part of head, initial encounter; Z23 Encounter for immunization
CPT/HCPCS: 36415; 70450; 72125; 80053; 85025; 90471; 90715; 99283

== ENCOUNTER 2022-03-24 23:00 | Emergency (ER) | payer SELFPAY ==
[2022-03-24 23:06] VITALS: BP 121/93; PULSE 77; RESP 18; TEMP 36.4; O2SAT 95; BMI 27.3
[2022-03-24 23:09] LABS: Basophils # 0.1 10^3/uL (0.0-0.1); Eosinophils % 0.4 %; Hematocrit 54.4 % (42.0-52.0); Hemoglobin 18.6 g/dL (11.7-16.6); Lymphocytes # 2.6 10^3/uL (0.8-4.8); Lymphocytes % 37.5 %; Mean Corpuscular HGB Conc 34.2 g/dL (30.0-36.0); Mean Corpuscular Volume 96.5 fl (80-94); Mean Platelet Volume 10.1 fL (7.4-10.4); Monocytes # 0.8 10^3/uL (0.2-0.9); Monocytes % 10.9 %; Neutrophils # 3.37 10^3/uL (1.8-7.7); Neutrophils % 49.2 %; Nucleated Red Blood Cells % 0 %; Platelet Count 200 10^3/cmm (130-400); Red Blood Count 5.64 10^6/uL (4.1-5.3); Red Cell Distribution Width 14.2 % (12.1-15.1); White Blood Count 6.9 10^3/uL (4.0-10.0)
[2022-03-24 23:18] VITALS: BP 121/93; PULSE 76; RESP 17; O2SAT 96
[2022-03-24 23:32] LABS: Alanine Aminotransferase 19 U/L (0-41); Albumin Level 4.5 g/dL (3.5-5.2); Alkaline Phosphatase 97 IU/L (40-130); Anion Gap 19.1 (5-19); Aspartate Amino Transferase 38 U/L (0-40); Blood Urea Nitrogen 7 mg/dL (6-20); Calcium 8.4 mg/dL (8.5-10.5); Carbon Dioxide 26 mmol/L (22-29); Chloride 101 mmol/L (98-107); Globulin 2.8 g/dL (1.3-4.6); Glucose 96 mg/dL (65-115); Osmolality Calculated 294 mOsm/kg (285-295); Potassium 3.1 mmol/L (3.5-5.1); Sodium 143 mmol/L (136-145); Total Bilirubin 0.2 mg/dL (0.15-1.2); Total Protein 7.3 g/dL (6.6-8.7)
[2022-03-24] MEDS: sodium chloride 0.9% 1,000 ML 999 ML IV (23:33)
[2022-03-24 23:39] LABS: Acetaminophen < 5.0 ug/mL (10-30); Alcohol Level 567 mg/dL (0-10); Salicylate < 0.3 mg/dL (3-10)
--- NOTE | 2022-03-24 23:39 | ED_ITS ---
HPI - Altered Mental Status General: Chief Complaint: Altered Mental Status Stated Complaint: Etoh Source: EMS Mode of arrival: EMS Limitations: altered mental status History of Present Illness: 46-year-old male who is here by EMS police had found him in a ditch he does have a long history of alcoholism he has been seen here for severe intoxication he will awake he states he drank heavily but is very difficult to get much history from him due to his level intoxication he is able to tell me his name he has no idea where he is at over the year though. No signs of any trauma or injuries. Review of Systems General: Reports: ROS unobtainable due to mental status PFSH ED PFSH: Medical History History of alcoholism History of suicidal ideation Surgical History History of tonsillectomy Family History Mother Alcoholism Father Hypertension Social History Smoking and tobacco status: current every day smoker Alcohol intake: current Alcohol intake frequency: 3 or more drinks per day Alcohol type: hard liquor Physical Exam Const: COMMON NORMALS: apparent distress and negative for patient oriented x3 EXAM LIMITATIONS: altered mental status GENERAL APPEARANCE: odor of alcohol detected HENMT: COMMON NORMALS: normocephalic and atraumatic HEAD & SCALP: normocephalic and atraumatic Eye: COMMON NORMALS: Equal, round and reactive pupils present and EOMs intact bilaterally PUPIL: Yes Equal, round and reactive pupils present Neck/C-Spine: COMMON NORMALS: full ROM and supple Chest: COMMONS NORMALS: normal inspection of the chest Resp: COMMON NORMALS: normal respiratory effort and clear to auscultation karen aterally AUSCULTATION: clear to auscultation bilaterally Cardio: COMMON NORMALS: regular rate and regular rhythm RATE: regular rate RHYTHM: regular rhythm GI: COMMON NORMALS: Normal to inspection, nondistended, normoactive bowel sounds present and non-tender : COMMON NORMALS: Yes no CVA tenderness BLADDER/KIDNEY EXAM: Yes no CVA tenderness Back/Pelvis: COMMON NORMALS: no CVA tenderness Extremity: COMMON NORMALS: normal to inspection Neuro: COMMON NORMALS: negative for patient oriented x3 OTHER: Patient is extremely intoxicated he will awaken and tell me his name not able answer much other questions due to his intoxication no signs of any head trauma or injuries Psych: COMMON NORMALS: negative for mental status grossly normal Skin: COMMON NORMALS: no rashes or lesions noted GENERAL SKIN EXAM: no rashes or lesions noted Course 2 Vital Signs: Vital signs: Vital Signs Temperature 97.6 F 03/24/22 23:06 Pulse Rate 85 03/25/22 02:00 Respiratory Rate 17 03/25/22 02:00 Blood Pressure 114/67 03/25/22 02:00 Pulse Oximetry 95 03/25/22 02:00 MDM - Altered Mental Status Medical Decision Making Patient presents here with alcohol intoxication patient was observed here is now awake and alert was able ambulate patient went home in [facility] he is able to make medical decision able answer my question appropriately able ambulate without any difficulty I did watch him get into the [employer] and she is taking him home he is stable at this time. Lab Data : 03/24/22 23:00 03/24/22 23:00 Laboratory Results WBC 6.9 10^3/uL (4.0-10.0) 03/24/22 23:00 RBC 5.64 10^6/uL (4.1-5.3) H 03/24/22 23:00 Hgb 18.6 g/dL (11.7-16.6) H 03/24/22 23:00 Hct 54.4 % (42.0-52.0) H 03/24/22 23:00 MCV 96.5 fl (80-94) H 03/24/22 23:00 MCH 33.0 pg (28.0-34.0) 03/24/22 23:00 MCHC 34.2 g/dL (30.0-36.0) 03/24/22 23:00 RDW 14.2 % (12.1-15.1) 03/24/22 23:00 Plt Count 200 10^3/cmm (130-400) 03/24/22 23:00 MPV 10.1 fL (7.4-10.4) 03/24/22 23:00 Neut % (Auto) 49.2 % 03/24/22 23:00 Lymph % (Auto) 37.5 % 03/24/22 23:00 [place] % (Auto) 10.9 % 03/24/22 23:00 Eos % (Auto) 0.4 % 03/24/22 23:00 Baso % (Auto) 1.0 % 03/24/22 23:00 Neut # (Auto) 3.37 10^3/uL (1.8-7.7) 03/24/22 23:00 Lymph # (Auto) 2.6 10^3/uL (0.8-4.8) 03/24/22 23:00 [place] # (Auto) 0.8 10^3/uL (0.2-0.9) 03/24/22 23:00 Eos # (Auto) 0.0 10^3/uL (0.0-0.8) 03/24/22 23:00 Baso # (Auto) 0.1 10^3/uL (0.0-0.1) 03/24/22 23:00 Nucleated RBC % (auto) 0 % 03/24/22 23:00 Nucleated RBCs # 0.0 /100WBC 03/24/22 23:00 Sodium 143 mmol/L (136-145) 03/24/22 23:00 Potassium 3.1 mmol/L (3.5-5.1) L 03/24/22 23:00 Chloride 101 mmol/L (98-107) 03/24/22 23:00 Carbon Dioxide 26 mmol/L (22-29) 03/24/22 23:00 Anion Gap 19.1 (5-19) H 03/24/22 23:00 BUN 7 mg/dL (6-20) 03/24/22 23:00 Creatinine 0.7 mg/dL (0.7-1.2) 03/24/22 23:00 GFR Calculation 122.0 mL/min (90-130) 03/24/22 23:00 Glucose 96 mg/dL (65-115) 03/24/22 23:00 Calculated Osmolality 294 mOsm/kg (285-295) 03/24/22 23:00 Calcium 8.4 mg/dL (8.5-10.5) L 03/24/22 23:00 Total Bilirubin 0.2 mg/dL (0.15-1.2) 03/24/22 23:00 AST 38 U/L (0-40) 03/24/22 23:00 ALT 19 U/L (0-41) 03/24/22 23:00 Alkaline Phosphatase 97 IU/L (40-130) 03/24/22 23:00 Total Protein 7.3 g/dL (6.6-8.7) 03/24/22 23:00 Albumin 4.5 g/dL (3.5-5.2) 03/24/22 23:00 Globulin 2.8 g/dL (1.3-4.6) 03/24/22 23:00 Salicylates < 0.3 mg/dL (3-10) L 03/24/22 23:00 Acetaminophen < 5.0 ug/mL (10-30) L 03/24/22 23:00 Ethyl Alcohol 567 mg/dL (0-10) H* 03/24/22 23:00 Discharge Plan Discharge Patient Disposition: Home Clinical Impression: Alcoholic intoxication Condition: Stable Prescriptions: No Action No Known Home Medications 0RF Rx Instructions: pt states he takes no rx or otc medications-no meds pull up on ext med history Discharge Orders: Discharge ED (Routine); Ordered 03/25/22 Ordered By: Panfilo Thapa Discharge Diet: Advance as tolerated Discharge Activity: Resume usual activity Patient Instructions: Alcohol Intoxication (ED) Coding Level of Care Code ED Accounts Payable Associate for Remington Fwalicia Exam Comprehensive
[2022-03-25 01:59] VITALS: BP 114/67; PULSE 86; RESP 17; O2SAT 95
[2022-03-25 02:00] VITALS: BP 114/67; PULSE 85; RESP 17; O2SAT 95
--- NOTE | 2022-03-25 02:48 | PC.NURSE ---
Transportation Contacted for Patient [employer] service contacted for patient transport to home residence @[phone].
== END 2022-03-25 02:55 | disposition home or self-care (01) ==
PROVIDERS: Emergency Provider Emergency Medicine
DX: F10.129 Alcohol abuse with intoxication, unspecified (principal); F17.210 Nicotine dependence, cigarettes, uncomplicated
CPT/HCPCS: 80053; 80307; 85025; 96361; 96374; 99284; J3411; J7030

== ENCOUNTER 2022-07-18 16:46 | Emergency (ER) | payer SELFPAY ==
--- NOTE | 2022-07-18 16:47 | W.ED.AMS ---
HPI - Altered Mental Status General: Chief Complaint: Alcohol Stated Complaint: AMS; ETOH Time Seen by Provider: 07/18/22 16:47 Limitations: altered mental status History of Present Illness: Mr. Guajardo is a 47-year-old gentleman brought into the ER for altered mental status. He was found by EMS confused on the corner of the street. EMS was summoned and evaluated the patient. Patient does report alcohol consumption. He appears clinically intoxicated which does limit history. Review of Systems General: Reports: 10 or more systems reviewed and unremarkable except in HPI and below PFSH ED PFSH: Medical History History of alcoholism History of suicidal ideation Surgical History History of tonsillectomy Family History Mother Alcoholism Father Hypertension Social History Smoking and tobacco status: current every day smoker Alcohol intake: current Alcohol intake frequency: 3 or more drinks per day Alcohol type: hard liquor Physical Exam Const: COMMON NORMALS: alert GENERAL APPEARANCE: cooperative and well developed HENMT: COMMON NORMALS: normocephalic and atraumatic HEAD & SCALP: normocephalic and atraumatic THROAT: posterior oropharynx normal Eye: COMMON NORMALS: conjunctivae normal CONJUNCTIVA: Yes conjunctivae normal SCLERA: sclerae normal Neck/C-Spine: COMMON NORMALS: supple GENERAL: Yes trachea midline Resp: COMMON NORMALS: normal respiratory effort EFFORT & INSPECTION: Yes able to speak in complete sentences Cardio: COMMON NORMALS: regular rate and regular rhythm RATE: regular rate RHYTHM: regular rhythm GI: COMMON NORMALS: Soft to palpation PALPATION: Yes Soft to palpation and No Tenderness to palpation present (GI) Extremity: GENERAL: Yes normal exam except as noted and No edema Neuro: COMMON NORMALS: moves all extremities SENSORIUM/ORIENTATION: Yes alert and Yes Orientation impaired OTHER: Patient appears clinically intoxicated Course Vital Signs: Vital signs: Vital Signs Temperature 98.2 F 07/18/22 16:49 Pulse Rate 76 07/18/22 16:49 Respiratory Rate 16 07/18/22 23:56 Blood Pressure 116/74 07/18/22 16:49 Pulse Oximetry 95 07/18/22 16:49 Oxygen Delivery Me thod 07/18/22 16:49 MDM - Altered Mental Status Medical Decision Making 47-year-old gentleman presenting with altered mental status endorsing history of alcohol consumption. Clinical appearance is consistent with reported toxidrome. Labs without other acute pathology requiring intervention. No evidence of trauma on exam. Upon clinical improvement patient able to ambulate with steady gait and tolerated p.o. intake. He no longer appears clinically intoxicated. Patient desires discharge and was placed in taxi to get home. Medical Records I reviewed the patient's medical records. Lab Data I reviewed the patient's lab results. : 07/18/22 16:55 07/18/22 16:55 Laboratory Results WBC 5.4 10^3/uL (4.0-10.0) 07/18/22 16:55 RBC 4.34 10^6/uL (4.1-5.3) 07/18/22 16:55 Hgb 14.3 g/dL (11.7-16.6) 07/18/22 16:55 Hct 42.8 % (42.0-52.0) 07/18/22 16:55 MCV 98.6 fl (80-94) H 07/18/22 16:55 MCH 32.9 pg (28.0-34.0) 07/18/22 16:55 MCHC 33.4 g/dL (30.0-36.0) 07/18/22 16:55 RDW 13.7 % (12.1-15.1) 07/18/22 16:55 Plt Count 297 10^3/cmm (130-400) 07/18/22 16:55 MPV 9.9 fL (7.4-10.4) 07/18/22 16:55 Neut % (Auto) 38.9 % 07/18/22 16:55 Lymph % (Auto) 40.8 % 07/18/22 16:55 Rogers % (Auto) 18.4 % 07/18/22 16:55 Eos % (Auto) 0.6 % 07/18/22 16:55 Baso % (Auto) 0.9 % 07/18/22 16:55 Neut # (Auto) 2.10 10^3/uL (1.8-7.7) 07/18/22 16:55 Lymph # (Auto) 2.2 10^3/uL (0.8-4.8) 07/18/22 16:55 Rogers # (Auto) 1.0 10^3/uL (0.2-0.9) H 07/18/22 16:55 Eos # (Auto) 0.0 10^3/uL (0.0-0.8) 07/18/22 16:55 Baso # (Auto) 0.1 10^3/uL (0.0-0.1) 07/18/22 16:55 Nucleated RBC % (auto) 0 % 07/18/22 16:55 Nucleated RBCs # 0.0 /100WBC 07/18/22 16:55 Sodium 145 mmol/L (136-145) 07/18/22 16:55 Potassium 3.2 mmol/L (3.5-5.1) L 07/18/22 16:55 Chloride 107 mmol/L (98-107) 07/18/22 16:55 Carbon Dioxide 26 mmol/L (22-29) 07/18/22 16:55 Anion Gap 15.2 (5-19) 07/18/22 16:55 BUN 5 mg/dL (6-20) L 07/18/22 16:55 Creatinine 0.6 mg/dL (0.7-1.2) L 07/18/22 16:55 GFR Calculation 145.0 mL/min (90-130) H 07/18/22 16:55 Glucose 104 mg/dL (65-115) 07/18/22 16:55 Calculated Osmolality 298 mOsm/kg (285-295) H 07/18/22 16:55 Calcium 8.6 mg/dL (8.5-10.5) 07/18/22 16:55 Total Bilirubin 0.2 mg/dL (0.15-1.2) 07/18/22 16:55 AST 37 U/L (0-40) 07/18/22 16:55 ALT 26 U/L (0-41) 07/18/22 16:55 Alkaline Phosphatase 58 U/L (40-130) 07/18/22 16:55 Total Protein 6.7 g/dL (6.6-8.7) 07/18/22 16:55 Albumin 4.3 g/dL (3.5-5.2) 07/18/22 16:55 Globulin 2.4 g/dL (1.3-4.6) 07/18/22 16:55 TSH 0.47 uIU/mL (0.27-4.20) 07/18/22 16:55 Salicylates < 0.3 mg/dL (3-10) L 07/18/22 16:55 Acetaminophen < 5.0 ug/mL (10-30) L 07/18/22 16:55 Ethyl Alcohol 462 mg/dL (0-10) H* 07/18/22 16:55 Discharge Plan Discharge Patient Disposition: Home Clinical Impression: Alcoholic intoxication Condition: Stable Prescriptions: New chlordiazepoxide HCl 25 mg capsule See Rx Instructions .ROUTE .COMPLEX Qty: 15 0RF Rx Instructions: Day 1: 50mg q6h Day 2: 25mg q6h Day 3: 25mg q12h Day 4: 25mg at night Discharge Orders: Discharge ED (Routine); Ordered 07/18/22 Ordered By: Rio Jones Discharge Diet: Usual diet Discharge Activity: Increase activity as tolerated Patient Instructions: Chlordiazepoxide (By mouth), Abuse of Alcohol (ED), Opioid Safety Activity Restrictions/Additional Instructions: Thank you for visiting the emergency department. You were seen and evaluated for altered mental status. The most likely cause of this is related to alcohol intoxication/abuse of alcohol. Your alcohol level was dangerously elevated. I recommend avoiding alcohol. Failure to stop abusing alcohol will likely lead to or worse. Your blood alcohol is still above the legal limit for operating any machinery or vehicles. I recommend going directly home and having someone check on you frequently. Please follow-up with a primary care provider and return to the emergency department for anything that you are concerned about and feel needs emergency department evaluation. Coding Level of Care Code ED Slitting Machine Operator for Remington Fwalicia Exam Comprehensive
[2022-07-18 16:49] VITALS: BP 116/74; PULSE 76; RESP 16; TEMP 36.8; O2SAT 95; BMI 25.0
--- NOTE | 2022-07-18 17:30 | PC.NURSE ---
Patient came out twice wanting to leave, this nurse stated to the patient that he was not allowed to leave since he came via [facility]. Security and I had to go hands on with the patient to place him back to his room. Doctor and Charge notified.
[2022-07-18 17:54] LABS: Basophils # 0.1 10^3/uL (0.0-0.1); Basophils % 0.9 %; Eosinophils % 0.6 %; Hematocrit 42.8 % (42.0-52.0); Hemoglobin 14.3 g/dL (11.7-16.6); Lymphocytes # 2.2 10^3/uL (0.8-4.8); Lymphocytes % 40.8 %; Mean Corpuscular HGB Conc 33.4 g/dL (30.0-36.0); Mean Corpuscular Hemoglobin 32.9 pg (28.0-34.0); Mean Corpuscular Volume 98.6 fl (80-94); Mean Platelet Volume 9.9 fL (7.4-10.4); Monocytes % 18.4 %; Neutrophils % 38.9 %; Nucleated Red Blood Cells % 0 %; Platelet Count 297 10^3/cmm (130-400); Red Blood Count 4.34 10^6/uL (4.1-5.3); Red Cell Distribution Width 13.7 % (12.1-15.1); White Blood Count 5.4 10^3/uL (4.0-10.0)
[2022-07-18 18:14] LABS: Alanine Aminotransferase 26 U/L (0-41); Albumin Level 4.3 g/dL (3.5-5.2); Alkaline Phosphatase 58 U/L (40-130); Anion Gap 15.2 (5-19); Aspartate Amino Transferase 37 U/L (0-40); Blood Urea Nitrogen 5 mg/dL (6-20); Calcium 8.6 mg/dL (8.5-10.5); Carbon Dioxide 26 mmol/L (22-29); Chloride 107 mmol/L (98-107); Creatinine Clr Calc Pharmacy 149.4644; Globulin 2.4 g/dL (1.3-4.6); Glucose 104 mg/dL (65-115); Osmolality Calculated 298 mOsm/kg (285-295); Potassium 3.2 mmol/L (3.5-5.1); Sodium 145 mmol/L (136-145); Thyroid Stimulating Hormone 0.47 uIU/mL (0.27-4.20); Total Bilirubin 0.2 mg/dL (0.15-1.2); Total Protein 6.7 g/dL (6.6-8.7)
[2022-07-18] MEDS: nicotine 14 mg Patch 1 PATCH TRANSDERMA (18:18)
[2022-07-18 18:41] LABS: Acetaminophen < 5.0 ug/mL (10-30); Salicylate < 0.3 mg/dL (3-10)
[2022-07-18 18:42] LABS: Alcohol Level 462 mg/dL (0-10)
[2022-07-18 23:56] VITALS: RESP 16
== END 2022-07-18 23:47 | disposition home or self-care (01) ==
PROVIDERS: Emergency Provider Emergency Medicine
DX: F10.129 Alcohol abuse with intoxication, unspecified (principal); Y90.8 Blood alcohol level of 240 mg/100 ml or more; F17.210 Nicotine dependence, cigarettes, uncomplicated
CPT/HCPCS: 80053; 80307; 84443; 85025; 99284

== ENCOUNTER 2022-07-19 13:43 | Emergency (ER) | payer SELFPAY ==
--- NOTE | 2022-07-19 13:43 | W.ED.AMS ---
HPI - Altered Mental Status General: Chief Complaint: Alcohol Stated Complaint: ETOH Time Seen by Provider: 07/19/22 13:43 Limitations: altered mental status History of Present Illness: Mr. Guajardo is a 47-year-old gentleman with significant past medical history of alcohol abuse presenting to the emergency department due to altered mental status/alcohol abuse. He was found by law enforcement sitting near a little traverse and drinking vodka. He endorses drinking 3 or 4 mini bottles however he did buy an entire sleeve of them. He denies new medical concerns. He stated yesterday when I saw him that he did not want to drink anymore however tragically this seems to have been halfhearted at best. History is otherwise limited by clinical intoxication. Review of Systems General: Reports: 10 or more systems reviewed and unremarkable except in HPI and below PFSH ED PFSH: Medical History History of alcoholism History of suicidal ideation Surgical History History of tonsillectomy Family History Mother Alcoholism Father Hypertension Social History Smoking and tobacco status: current every day smoker Alcohol intake: current Alcohol intake frequency: 3 or more drinks per day Alcohol type: hard liquor Physical Exam Const: COMMON NORMALS: alert GENERAL APPEARANCE: cooperative and well developed HENMT: COMMON NORMALS: normocephalic and atraumatic HEAD & SCALP: normocephalic and atraumatic Eye: COMMON NORMALS: conjunctivae normal CONJUNCTIVA: Yes conjunctivae normal SCLERA: sclerae normal Neck/C-Spine: COMMON NORMALS: supple GENERAL: Yes trachea midline Resp: COMMON NORMALS: normal respiratory effort and clear to auscultation bilaterally EFFORT & INSPECTION: Yes able to speak in complete sentences AUSCULTATION: clear to auscultation bilaterally Cardio: COMMON NORMALS: regular rate and regular rhythm RATE: regular rate RHYTHM: regular rhythm GI: COMMON NORMALS: Soft to palpation PALPATION: Yes Soft to palpation and No Tenderness to palpation present (GI) Extremity: GENERAL: Yes normal exam except as noted and No edema Neuro: COMMON NORMALS: moves all extremities SENSORIUM/ORIENTATION: Yes alert and No Orientation impaired OTHER: Appears clinically intoxicated Psych: COMMON NORMALS: mental status grossly normal and Normal thought process present THOUGHT PROCESS: Normal thought process present Course Vital Signs: Vital signs: Vital Signs Temperature 97.7 F 07/19/22 13:45 Pulse Rate 94 07/19/22 18:34 Respiratory Rate 20 H 07/19/22 18:34 Blood Pressure 120/74 07/19/22 18:34 Pulse Oximetry 94 07/19/22 18:34 Oxygen Delivery Me thod 07/19/22 18:34 MDM - Altered Mental Status Medical Decision Making 47-year-old gentleman presenting with toxidrome consistent with reported alcohol abuse. Improved upon reassessment. Patient able to ambulate with steady gait and tolerated p.o. intake. Put in taxi for trip home as the patient desires discharge strongly. Medical Records I reviewed the patient's medical records. Lab Data I reviewed the patient's lab results. Laboratory Results POC Glucose 99 mg/dL (70-110) 07/19/22 14:11 Discharge Plan Discharge Patient Disposition: Home Clinical Impression: Alcoholic intoxication Condition: Stable Prescriptions: No Action chlordiazepoxide HCl 25 mg capsule See Rx Instructions .ROUTE .COMPLEX Qty: 15 0RF Rx Instructions: Day 1: 50mg q6h Day 2: 25mg q6h Day 3: 25mg q12h Day 4: 25mg at night Discharge Orders: Discharge ED (Routine); Ordered 07/19/22 Ordered By: Rio Jones Discharge Diet: Usual diet Discharge Activity: Increase activity as tolerated Patient Instructions: Abuse of Alcohol (ED) Activity Restrictions/Additional Instructions: Thank you for visiting the emergency department. You were seen and evaluated again for alcohol intoxication. Please stop abusing alcohol. Failure to stop abusing alcohol will likely lead to or worse. I recommend someone watching him closely until you are sober. Please follow-up and establish with a primary care provider. Return to the emergency department as needed. Coding Level of Care Code ED Netbackup Admin for Remington Frank Exam Comprehensive
[2022-07-19 13:45] VITALS: BP 110/81; PULSE 81; RESP 17; TEMP 36.5; O2SAT 97; BMI 25.0
[2022-07-19] MEDS: folic acid 1 mg Tablet PO (14:07)
[2022-07-19] MEDS: nicotine 14 mg Patch 1 PATCH TRANSDERMA (14:07)
[2022-07-19 14:14] LABS: Glucose Point of Care 99 mg/dL (70-110)
[2022-07-19 18:34] VITALS: BP 120/74; PULSE 94; RESP 20; O2SAT 94
== END 2022-07-19 18:53 | disposition home or self-care (01) ==
PROVIDERS: Emergency Provider Emergency Medicine
DX: F10.129 Alcohol abuse with intoxication, unspecified (principal); Y90.9 Presence of alcohol in blood, level not specified; F17.210 Nicotine dependence, cigarettes, uncomplicated
CPT/HCPCS: 36416; 82962; 96372; 99284; J3411

== ENCOUNTER 2022-11-02 16:47 | Emergency (ER) | payer SELFPAY ==
--- NOTE | 2022-11-02 16:54 | ED_ITS ---
HPI - Trauma General: Chief Complaint: Fall Stated Complaint: fall/ lacerations/ etoh on board Time Seen by Provider: 11/02/22 16:54 Limitations: altered mental status History of Present Illness: 47-year-old gentleman presenting with facial trauma in the context of alcohol abuse. Patient is a somewhat vague historian and is unsure exactly why he fell. Mild to moderate headache. Does have history of falls. No other specific changes in health, exacerbating, or alleviating factors identified. Review of Systems General: Reports: 10 or more systems reviewed and unremarkable except in HPI and below PFSH ED PFSH: Medical History History of alcoholism History of suicidal ideation Surgical History History of tonsillectomy Family History Mother Alcoholism Father Hypertension Social History Smoking and tobacco status: current every day smoker Alcohol intake: current Alcohol intake frequency: 3 or more drinks per day Alcohol type: hard liquor Physical Exam Const: COMMON NORMALS: alert GENERAL APPEARANCE: cooperative and well developed HENMT: COMMON NORMALS: normocephalic and atraumatic HEAD & SCALP: normocephalic and atraumatic THROAT: posterior oropharynx normal OTHER: Abrasions and contusions, no fulton signs or raccoon eyes. No hemotympanum. No otorrhea or rhinorrhea. Jaw alignment normal. Dentition baseline. No obvious bony step-offs. No septal hematoma. No evidence of ocular entrapment. Eye: COMMON NORMALS: conjunctivae normal CONJUNCTIVA: Yes conjunctivae normal SCLERA: sclerae normal Neck/C-Spine: COMMON NORMALS: supple GENERAL: Yes trachea midline Resp: COMMON NORMALS: normal respiratory effort and clear to auscultation bilaterally EFFORT & INSPECTION: Yes able to speak in complete sentences AUSCULTATION: clear to auscultation bilaterally Cardio: COMMON NORMALS: regular rate and regular rhythm RATE: regular rate RHYTHM: regular rhythm GI: COMMON NORMALS: Soft to palpation PALPATION: Yes Soft to palpation and No Tenderness to palpation present (GI) PERCUSSION: normal to percussion Extremity: GENERAL: Yes normal exam except as noted and No edema Neuro: COMMON NORMALS: moves all extremities SENSORIUM/ORIENTATION: Yes alert and Yes Orientation impaired Psych: COMMON NORMALS: mental status grossly normal and Normal thought process present THOUGHT PROCESS: Normal thought process present MDM - Trauma Medical Decision Making 47-year-old gentleman presenting with fall in the context of alcohol use. Exam as above. Head to toe exam performed. CT imaging of the head and cervical spine negative for acute traumatic injury. Patient does have a minimally displaced fracture of the anterior nasal spine and nondisplaced fracture of the left zygomatic process. X-ray imaging negative for acute pathology. Patient was observed until clinically sober. He was able to ambulate with a steady gait and tolerate p.o. intake. Plan to follow-up with ENT. The results of ED evaluation were discussed with the patient including prescriptions and/or symptomatic cares (if applicable) including appropriate and responsible use, followup plan, and return precautions. The patient verbalized understanding and felt safe for discharge. Medical Records I reviewed the patient's medical records. Lab Data I reviewed the patient's lab results. Radiology Impressions Cervical Spine CT 11/02/22 16:59 IMPRESSION: No acute findings. Chest X-Ray 11/02/22 16:59 IMPRESSION: No acute findings. Face CT 11/02/22 16:59 IMPRESSION: 1. Minimally displaced fracture through the anterior nasal spine. 2. Nondisplaced fracture through the left zygomatic process. Head CT 11/02/22 16:59 IMPRESSION: No acute intracranial abnormality. Discharge Plan Discharge Patient Disposition: Home Clinical Impression: Alcoholic intoxication, Facial trauma, Head injury, Abrasion, Fracture of nasal bone, Fracture of left zygomatic arch Condition: Stable Prescriptions: No Action chlordiazepoxide HCl 25 mg capsule See Rx Instructions .ROUTE .COMPLEX Qty: 15 0RF Rx Instructions: Day 1: 50mg q6h Day 2: 25mg q6h Day 3: 25mg q12h Day 4: 25mg at night Discharge Orders: Discharge ED (Routine); Ordered 11/02/22 Ordered By: Rio Jones Discharge Diet: Usual diet Discharge Activity: Limit activity as instructed Patient Instructions: Nasal Fracture (ED), Facial Fracture (ED), Abuse of Alcohol (ED), Acute Wound Care (ED) Activity Restrictions/Additional Instructions: Thank you for visiting the emergency department. You were seen evaluated for fall, alcohol intoxication, and facial trauma. You were found to have abrasions and also a nasal fracture and zygomatic arch fracture. This requires follow-up. Please call in the morning for follow-up with Dr Narvaez [facility] [address] [place] [id number] Please also establish and follow-up with a primary care provider. Please stop abusing alcohol. Failure to stop abusing alcohol will likely lead t o or worse. Return to the emergency department as needed. Coding Level of Care Code ED Correction Officer Head for Remington Frank
--- NOTE | 2022-11-02 16:59 | CTR_ITS ---
PROCEDURE INFORMATION: Exam: CT Maxillofacial Without Contrast Exam date and time: 11/02/2022 5:40 PM Age: 47 years old Clinical indication: Injury or trauma; Fall; Blunt trauma (contusions or hematomas) and laceration; Forehead and nose; Without residual foreign body; Additional info: AMS, fall TECHNIQUE: Imaging protocol: Computed tomography of the face without contrast. Radiation optimization: All CT scans at this facility use at least one of these dose optimization techniques: automated exposure control; mA and/or kV adjustment per patient size (includes targeted exams where dose is matched to clinical indication); or iterative reconstruction. COMPARISON: CT head wo con* [id number] 11/02/2022 5:35 PM RADIATION DOSE METRICS: Total DLP (mGy-cm): 683.78 FINDINGS: Orbital cavities: Orbits are normal. Globes are unremarkable. Bones/joints: Minimally displaced fracture through the anterior nasal spine. There is also a nondisplaced horizontal fracture through the left zygomatic process. The rest of the osseous maxillofacial structures are intact. Paranasal sinuses: Normal. No air-fluid levels. Soft tissues: Forehead and nasal contusions. CT/CT facial bones wo con* [id number] IMPRESSION: 1. Minimally displaced fracture through the anterior nasal spine. 2. Nondisplaced fracture through the left zygomatic process.
--- NOTE | 2022-11-02 16:59 | CTR_ITS ---
PROCEDURE INFORMATION: Exam: CT Head Without Contrast Exam date and time: 11/02/2022 5:46 PM Age: 47 years old Clinical indication: Injury or trauma; Fall; Blunt trauma (contusions or hematomas); Consciousness not specified; Additional info: AMS, fall TECHNIQUE: Imaging protocol: Computed tomography of the head without contrast. Radiation optimization: All CT scans at this facility use at least one of these dose optimization techniques: automated exposure control; mA and/or kV adjustment per patient size (includes targeted exams where dose is matched to clinical indication); or iterative reconstruction. COMPARISON: CT head wo con* [id number] 11/05/2021 1:01 PM RADIATION DOSE METRICS: Total DLP (mGy-cm): 1361.58 FINDINGS: Brain: No hemorrhage. No edema. Mild diffuse cerebral atrophy. No significant white matter disease. No mass effect. Cerebral ventricles: No ventriculomegaly. Paranasal sinuses: Visualized sinuses are unremarkable. No fluid levels. Mastoid air cells: Visualized mastoid air cells are well aerated. Bones/joints: Unremarkable. No acute fracture. Soft tissues: Forehead contusions. CT/CT head wo con* [id number] IMPRESSION: No acute intracranial abnormality.
--- NOTE | 2022-11-02 16:59 | XRR_ITS ---
PROCEDURE INFORMATION: Exam: XR Chest Exam date and time: 11/02/2022 6:44 PM Age: 47 years old Clinical indication: Other: Drunk; Additional info: AMS TECHNIQUE: Imaging protocol: Radiologic exam of the chest. Views: 1 view. COMPARISON: CR XR chest 1V portable [id number] 05/14/2021 10:18 AM FINDINGS: Lungs: Unremarkable. No consolidation. Pleural spaces: Unremarkable. No pleural effusion. No pneumothorax. Heart/Mediastinum: Unremarkable. No cardiomegaly. Bones/joints: Unremarkable. XR/XR chest 1V portable [id number] IMPRESSION: No acute findings.
--- NOTE | 2022-11-02 16:59 | CTR_ITS ---
PROCEDURE INFORMATION: Exam: CT Cervical Spine Without Contrast Exam date and time: 11/02/2022 5:40 PM Age: 47 years old Clinical indication: Injury or trauma; Fall; Blunt trauma; Additional info: AMS, fall TECHNIQUE: Imaging protocol: Computed tomography of the cervical spine without contrast. Radiation optimization: All CT scans at this facility use at least one of these dose optimization techniques: automated exposure control; mA and/or kV adjustment per patient size (includes targeted exams where dose is matched to clinical indication); or iterative reconstruction. COMPARISON: CT cervical spin wo con* [id number] 11/05/2021 1:04 PM RADIATION DOSE METRICS: Total DLP (mGy-cm): 232.2 FINDINGS: Bones/joints: No acute fracture. Normal alignment. No significant disc protrusion. No severe spinal canal stenosis. Lungs: Lung apices are normal. Soft tissues: Unremarkable. CT/CT cervical spin wo con* [id number] IMPRESSION: No acute findings.
[2022-11-02] MEDS: clindamycin 150 mg Capsule 300 MG PO (19:35)
== END 2022-11-02 19:45 | disposition home or self-care (01) ==
PROVIDERS: Emergency Provider Emergency Medicine
DX: S02.2XXA Fracture of nasal bones, initial encounter for closed fracture (principal); S02.40FA Zygomatic fracture, left side, initial encounter for closed fracture; S09.90XA Unspecified injury of head, initial encounter; F10.129 Alcohol abuse with intoxication, unspecified; Y90.9 Presence of alcohol in blood, level not specified; S00.83XA Contusion of other part of head, initial encounter; F17.210 Nicotine dependence, cigarettes, uncomplicated; W19.XXXA Unspecified fall, initial encounter
CPT/HCPCS: 70450; 70486; 71045; 72125; 99284

== ENCOUNTER 2023-05-09 18:49 | Emergency (ER) | payer MEDICAID, SELFPAY ==
[2023-05-09 18:53] VITALS: BP 128/89; PULSE 73; RESP 16; TEMP 36.6; O2SAT 93; BMI 23.5
--- NOTE | 2023-05-09 18:58 | CTR_ITS ---
PROCEDURE INFORMATION: Exam: CT Cervical Spine Without Contrast Exam date and time: 05/09/2023 7:02 PM Age: 47 years old Clinical indication: Injury or trauma; Fall; Blunt trauma TECHNIQUE: Imaging protocol: Computed tomography of the cervical spine without contrast. Radiation optimization: All CT scans at this facility use at least one of these dose optimization techniques: automated exposure control; mA and/or kV adjustment per patient size (includes targeted exams where dose is matched to clinical indication); or iterative reconstruction. REPORTING DATA: Count of CT and Cardiac NM exams in prior 12 months: This patient has received 3 known CTs and 0 known cardiac nuclear medicine studies in the 12 months prior to the current study. COMPARISON: CT cervical spin wo con* [id number] 11/02/2022 5:40 PM RADIATION DOSE METRICS: Total DLP (mGy-cm): 267.9 FINDINGS: Bones/joints: No acute fracture. Normal alignment. No significant disc bulge or herniation. No severe spinal canal stenosis. No significant neural foraminal narrowing. Lungs: Lung apices are normal. Soft tissues: Unremarkable. CT/CT cervical spin wo con* [id number] IMPRESSION: No acute findings.
--- NOTE | 2023-05-09 18:58 | CTR_ITS ---
PROCEDURE INFORMATION: Exam: CT Maxillofacial Without Contrast Exam date and time: 05/09/2023 7:02 PM Age: 47 years old Clinical indication: Injury or trauma; Fall; Blunt trauma (contusions or hematomas); Forehead TECHNIQUE: Imaging protocol: Computed tomography of the face without contrast. Radiation optimization: All CT scans at this facility use at least one of these dose optimization techniques: automated exposure control; mA and/or kV adjustment per patient size (includes targeted exams where dose is matched to clinical indication); or iterative reconstruction. REPORTING DATA: Count of CT and Cardiac NM exams in prior 12 months: This patient has received 3 known CTs and 0 known cardiac nuclear medicine studies in the 12 months prior to the current study. COMPARISON: CT facial bones wo con* [id number] 11/02/2022 5:40 PM RADIATION DOSE METRICS: Total DLP (mGy-cm): 674.8 FINDINGS: Orbital cavities: Orbits are normal. Globes are unremarkable. Bones/joints: No acute fracture. Paranasal sinuses: Normal. No air-fluid levels. Soft tissues: Unremarkable. CT/CT facial bones wo con* [id number] IMPRESSION: No acute findings.
--- NOTE | 2023-05-09 18:58 | XRR_ITS ---
PROCEDURE INFORMATION: Exam: XR Chest Exam date and time: 05/09/2023 7:31 PM Age: 47 years old Clinical indication: Injury or trauma; Fall; Blunt trauma (contusions or hematomas) TECHNIQUE: Imaging protocol: Radiologic exam of the chest. Views: 1 view. COMPARISON: CR XR chest 1V portable [id number] 11/02/2022 6:44 PM FINDINGS: Lungs: Unremarkable. No consolidation. Pleural spaces: Unremarkable. No pleural effusion. No pneumothorax. Heart/Mediastinum: Unremarkable. No cardiomegaly. Bones/joints: Old callused left posterior mid and lower rib fractures noted. XR/XR chest 1V portable [id number] IMPRESSION: No acute findings.
--- NOTE | 2023-05-09 18:58 | CTR_ITS ---
PROCEDURE INFORMATION: Exam: CT Head Without Contrast Exam date and time: 05/09/2023 7:02 PM Age: 47 years old Clinical indication: Injury or trauma; Fall; Blunt trauma (contusions or hematomas); Consciousness not specified TECHNIQUE: Imaging protocol: Computed tomography of the head without contrast. Radiation optimization: All CT scans at this facility use at least one of these dose optimization techniques: automated exposure control; mA and/or kV adjustment per patient size (includes targeted exams where dose is matched to clinical indication); or iterative reconstruction. REPORTING DATA: Count of CT and Cardiac NM exams in prior 12 months: This patient has received 3 known CTs and 0 known cardiac nuclear medicine studies in the 12 months prior to the current study. COMPARISON: CT head wo con* [id number] 11/02/2022 5:35 PM RADIATION DOSE METRICS: Total DLP (mGy-cm): 1140.7 FINDINGS: Brain: Normal. No hemorrhage. Unremarkable white matter. No mass effect. Cerebral ventricles: No ventriculomegaly. Paranasal sinuses: Visualized sinuses are unremarkable. No fluid levels. Mastoid air cells: Visualized mastoid air cells are well aerated. Bones/joints: Unremarkable. No acute fracture. Soft tissues: Unremarkable. CT/CT head wo con* [id number] IMPRESSION: No acute intracranial abnormality.
--- NOTE | 2023-05-09 19:02 | ED_ITS ---
HPI - Fall General: Chief Complaint: Fall Stated Complaint: AMS; ETOH; FACIAL TRAUMA Time Seen by Provider: 05/09/23 18:51 Source: patient and EMS Mode of arrival: EMS Limitations: no limitations History of Present Illness: 47-year-old male who is well-known to ER he has history of severe alcoholism he had been drinking heavily today bystanders seen him fall multiple times and called EMS patient is intoxicated here he does have abrasions to his head and face he is denying pain currently but he is very intoxicated. Associated symptoms-after fall: Reports headache(s); Denies abdominal pain, chest pain or neck pain Review of Systems Const: Denies: fever(s), chills, body aches or change in appetite Eyes: Denies: blurry vision or eye discomfort ENMT: Denies: throat pain or dental pain Card: Denies: chest pain Resp: Denies: dyspnea GI: Denies: abdominal pain, nausea, vomiting or diarrhea : Denies: dysuria Musc: Denies: neck pain or back pain Skin/Breast: Denies: rash Neuro: Reports: headache(s) PFSH ED PFSH: Medical History History of alcoholism History of suicidal ideation Surgical History History of tonsillectomy Family History Mother Alcoholism Father Hypertension Social History Smoking and tobacco status: current every day smoker Alcohol intake: current Alcohol intake frequency: 3 or more drinks per day Alcohol type: hard liquor Substance/Drug Use: never Physical Exam Const: COMMON NORMALS: no acute distress and patient oriented x3 GENERAL APPEARANCE: disheveled and odor of alcohol detected HENMT: OTHER: Abrasions noted to head and face Eye: COMMON NORMALS: Equal, round and reactive pupils present and EOMs intact bilaterally PUPIL: Yes Equal, round and reactive pupils present Neck/C-Spine: COMMON NORMALS: full ROM and supple Chest: COMMONS NORMALS: normal inspection of the chest and normal palpation of entire chest wall Resp: COMMON NORMALS: normal respiratory effort, No retractions, No use of accessory muscles and clear to auscultation bilaterally AUSCULTATION: clear to auscultation bilaterally Cardio: COMMON NORMALS: regular rate, regular rhythm and No murmurs present (Cardio) RATE: regular rate RHYTHM: regular rhythm GI: COMMON NORMALS: Normal to inspection, nondistended, normoactive bowel sounds present, Soft to palpation, non-tender and no masses PALPATION: Yes Soft to palpation Extremity: COMMON NORMALS: normal to inspection and full ROM Neuro: COMMON NORMALS: patient oriented x3, moves all extremities and no focal motor deficits Psych: COMMON NORMALS: mental status grossly normal, Normal thought process present and cooperative THOUGHT PROCESS: Normal thought process present Skin: COMMON NORMALS: no rashes or lesions noted and no wounds GENERAL SKIN EXAM: no rashes or lesions noted Course Vital Signs: Vital signs: Vital Signs Temperature 97.8 F 05/09/23 18:53 Pulse Rate 74 05/09/23 19:27 Respiratory Rate 16 05/09/23 18:53 Blood Pressure 125/84 05/09/23 19:27 Pulse Oximetry 93 05/09/23 19:27 Oxygen Delivery Me thod Room Air 05/09/23 19:27 MDM - Fall Medical Decision Making Patient presents with closed head injury after fall he has no other signs of injuries CTs here are normal he is intoxicated he is now ambulatory answering my questions appropriately patient did have a ride that came and picked him up he is stable for discharge. Medical Records I reviewed the patient's medical records. Lab Data I reviewed the patient's lab results. 05/09/23 19:20 05/09/23 19:20 Radiology Impressions Cervical Spine CT 05/09/23 18:58 IMPRESSION: No acute findings. Chest X-Ray 05/09/23 18:58 IMPRESSION: No acute findings. Face CT 05/09/23 18:58 IMPRESSION: No acute findings. Head CT 05/09/23 18:58 IMPRESSION: No acute intracranial abnormality. Laboratory Results WBC 11.6 10^3/uL (4.0-10.0) H 05/09/23 19:20 RBC 4.44 10^6/uL (4.1-5.3) 05/09/23 19:20 Hgb 13.9 g/dL (11.7-16.6) 05/09/23 19:20 Hct 42.2 % (42.0-52.0) 05/09/23 19:20 MCV 95.0 fl (80-94) H 05/09/23 19:20 MCH 31.3 pg (28.0-34.0) 05/09/23 19:20 MCHC 32.9 g/dL (30.0-36.0) 05/09/23 19:20 RDW 14.2 % (12.1-15.1) 05/09/23 19:20 Plt Count 237 10^3/cmm (130-400) 05/09/23 19:20 MPV 9.8 fL (7.4-10.4) 05/09/23 19:20 Neut % (Auto) 78.0 % 05/09/23 19:20 Lymph % (Auto) 14.9 % 05/09/23 19:20 [place] % (Auto) 6.2 % 05/09/23 19:20 Eos % (Auto) 0.2 % 05/09/23 19:20 Baso % (Auto) 0.4 % 05/09/23 19:20 Neut # (Auto) 9.01 10^3/uL (1.8-7.7) H 05/09/23 19:20 Lymph # (Auto) 1.7 10^3/uL (0.8-4.8) 05/09/23 19:20 [place] # (Auto) 0.7 10^3/uL (0.2-0.9) 05/09/23 19:20 Eos # (Auto) 0.0 10^3/uL (0.0-0.8) 05/09/23 19:20 Baso # (Auto) 0.1 10^3/uL (0.0-0.1) 05/09/23 19:20 Nucleated RBC % (auto) 0 % 05/09/23 19: Nucleated RBCs # 0.0 /100WBC 05/09/23 19:20 Sodium 143 mmol/L (136-145) 05/09/23 19:20 Potassium 3.5 mmol/L (3.5-5.1) 05/09/23 19:20 Chloride 103 mmol/L (98-107) 05/09/23 19:20 Carbon Dioxide 26 mmol/L (22-29) 05/09/23 19:20 Anion Gap 17.5 (5-19) 05/09/23 19:20 BUN 13 mg/dL (6-20) 05/09/23 19:20 Creatinine 0.7 mg/dL (0.7-1.2) 05/09/23 19:20 GFR Calculation 121.4 mL/min (90-130) 05/09/23 19:20 Glucose 81 mg/dL (65-115) 05/09/23 19:20 Calculated Osmolality 295 mOsm/kg (285-295) 05/09/23 19:20 Calcium 8.5 mg/dL (8.5-10.5) 05/09/23 19:20 Total Bilirubin 0.3 mg/dL (0.15-1.2) 05/09/23 19:20 AST 26 U/L (0-40) 05/09/23 19:20 ALT 14 U/L (0-41) 05/09/23 19:20 Alkaline Phosphatase 51 U/L (40-130) 05/09/23 19:20 Total Protein 6.6 g/dL (6.6-8.7) 05/09/23 19:20 Albumin 4.3 g/dL (3.5-5.2) 05/09/23 19:20 Globulin 2.3 g/dL (1.3-4.6) 05/09/23 19:20 Ethyl Alcohol 452 mg/dL (0-10) H* 05/09/23 19:20 Discharge Plan Discharge Patient Disposition: Home Clinical Impression: Alcoholic intoxication, Closed head injury Condition: Stable Prescriptions: No Action chlordiazepoxide HCl 25 mg capsule See Rx Instructions .ROUTE .COMPLEX Qty: 15 0RF Rx Instructions: Day 1: 50mg q6h Day 2: 25mg q6h Day 3: 25mg q12h Day 4: 25mg at night Discharge Orders: Discharge ED (Routine); Ordered 05/09/23 Ordered By: Panfilo Thapa Discharge Diet: Advance as tolerated Discharge Activity: Resume usual activity Patient Instructions: Head Injury (ED), Alcohol Intoxication (ED) Coding Level of Care Code ED Fish Cake Maker for Remington rFank
[2023-05-09 19:27] VITALS: BP 125/84; PULSE 74; O2SAT 93
[2023-05-09 19:31] LABS: Basophils # 0.1 10^3/uL (0.0-0.1); Basophils % 0.4 %; Eosinophils % 0.2 %; Hematocrit 42.2 % (42.0-52.0); Hemoglobin 13.9 g/dL (11.7-16.6); Lymphocytes # 1.7 10^3/uL (0.8-4.8); Lymphocytes % 14.9 %; Mean Corpuscular HGB Conc 32.9 g/dL (30.0-36.0); Mean Corpuscular Hemoglobin 31.3 pg (28.0-34.0); Mean Platelet Volume 9.8 fL (7.4-10.4); Monocytes # 0.7 10^3/uL (0.2-0.9); Monocytes % 6.2 %; Neutrophils # 9.01 10^3/uL (1.8-7.7); Nucleated Red Blood Cells % 0 %; Platelet Count 237 10^3/cmm (130-400); Red Blood Count 4.44 10^6/uL (4.1-5.3); Red Cell Distribution Width 14.2 % (12.1-15.1); White Blood Count 11.6 10^3/uL (4.0-10.0)
[2023-05-09 19:48] LABS: Alanine Aminotransferase 14 U/L (0-41); Albumin Level 4.3 g/dL (3.5-5.2); Alcohol Level 452 mg/dL (0-10); Alkaline Phosphatase 51 U/L (40-130); Anion Gap 17.5 (5-19); Aspartate Amino Transferase 26 U/L (0-40); Blood Urea Nitrogen 13 mg/dL (6-20); Calcium 8.5 mg/dL (8.5-10.5); Carbon Dioxide 26 mmol/L (22-29); Chloride 103 mmol/L (98-107); Creatinine Clr Calc Pharmacy 124.7283; Globulin 2.3 g/dL (1.3-4.6); Glomerular Filtration Rate 121.4 mL/min (90-130); Glucose 81 mg/dL (65-115); Osmolality Calculated 295 mOsm/kg (285-295); Potassium 3.5 mmol/L (3.5-5.1); Sodium 143 mmol/L (136-145); Total Bilirubin 0.3 mg/dL (0.15-1.2); Total Protein 6.6 g/dL (6.6-8.7)
[2023-05-09] MEDS: multivitamin therapeutic Tablet 1 TAB PO (20:04)
--- NOTE | 2023-05-09 20:11 | PC.NURSE ---
PT REFUSING VITALS AT THIS TIME.
--- NOTE | 2023-05-13 13:12 | DCPLANNER ---
digital marketing project manager called patient due to no primary care physician - no answer at this time.
== END 2023-05-09 20:30 | disposition home or self-care (01) ==
PROVIDERS: Emergency Provider Emergency Medicine
DX: F10.120 Alcohol abuse with intoxication, uncomplicated (principal); Y90.8 Blood alcohol level of 240 mg/100 ml or more; S09.8XXA Other specified injuries of head, initial encounter; S00.91XA Abrasion of unspecified part of head, initial encounter; S00.31XA Abrasion of nose, initial encounter; W19.XXXA Unspecified fall, initial encounter; Z91.81 History of falling
CPT/HCPCS: 70450; 70486; 71045; 72125; 80053; 80307; 85025; 99285

== ENCOUNTER → 2023-10-25 08:58 | Outpatient (BNVA) | payer MEDICAID, SELFPAY | PROVIDERS: PCP Family Medicine Adult Medicine; Visit Provider Family Medicine Adult Medicine | DX: Z00.00 Encounter for general adult medical examination without abnormal findings (principal); R53.83 Other fatigue; R35.1 Nocturia; F32.9 Major depressive disorder, single episode, unspecified | CPT/HCPCS: 80053; 80061; 84403; 85025; G0103 ==

== ENCOUNTER 2024-08-07 22:55 | Emergency (ER) | payer SELFPAY ==
[2024-08-07 22:55] VITALS: BP 112/76; PULSE 75; RESP 16; TEMP 36.3; O2SAT 94; BMI 26.6
[2024-08-07 23:04] VITALS: BP 123/88; PULSE 72; O2SAT 94
--- NOTE | 2024-08-07 23:15 | ED_ITS ---
HPI - Alcohol 2 General: Chief Complaint: Alcohol Stated Complaint: ETOH Time Seen by Provider: 08/07/24 22:57 History of Present Illness: 49-year-old man with a history of alcoho l abuse who presents to the emergency room with alcohol intoxication. Apparently was found laying in a park. He has abrasions on his knees. He wakes up but does appear intoxicated. EMS reports breathalyzer of 0.33. Related Data Home Medications Medication Instructions Recorded Confirmed fluoxetine 20 mg capsule 20 mg PO DAILY 10/06/23 10/06/23 hydroxyzine HCl 25 mg tablet 25 mg PO TID PRN 10/06/23 10/06/23 naltrexone microspheres 380 mg 380 mg IM .monthly 10/06/23 10/06/23 intramuscular suspension,extended release (Vivitrol) Allergies Allergy/AdvReac Type Severity Reaction Status Date / Time No Known Allergies Allergy Verified 10/06/23 13:36 Review of Systems 2 General: Reports: ROS unobtainable due to mental status PFSH ED 2 PFSH: Medical History (Updated 08/07/24 @ 23:57 by Zully Laguerre MD) Well adult health check Fatigue Nocturia Scoliosis Torsion of appendix of testis Ganglion cyst History of suicidal ideation History of alcoholism Surgical History History of tonsillectomy Family History Mother Alcoholism Father Hypertension Social History Smoking and tobacco/nicotine status: current every day tobacco/nicotine user Alcohol intake: current Alcohol intake frequency: 3 or more drinks per day Alcohol type: hard liquor Substance/Drug Use: never Physical Exam 2 Narrative: EXAM NARRATIVE: General: Somnolent, appears intoxicated Skin: Warm, dry. Head: Normocephalic, atraumatic. Neck: Supple, trachea midline. Eye: Extraocular movements are intact. Ears, nose, mouth and throat: mucosa moist. Cardiovascular: Regular, Normal peripheral perfusion. Respiratory: Lungs are clear to auscultation, respirations are non-labored, breath sounds are equal, Symmetrical chest wall expansion. Gastrointestinal: Soft, Nontender, Non distended Musculoskeletal: Normal ROM, no deformity. Neurological: Somnolent but arousable, No focal neurological deficit observed. Psychiatric: Patient appears intoxicated and somnolent Course 2 Vital Signs: Vital signs: Vital Signs Temperature 97.4 F L 08/07/24 22:55 Pulse Rate 73 08/08/24 04:00 Respiratory Rate 16 08/07/24 22:55 Blood Pressure 93/68 08/08/24 04:00 Pulse Oximetry 97 08/08/24 04:00 Oxygen Delivery Me thod Nasal Cannula 08/08/24 03:30 Oxygen Flow Rate 2 08/08/24 01:30 MDM - Alcohol Medical Decision Making Medical decision making: Differential diagnosis including but not limited to and based on the above HPI, review of systems and physical exam: Patient appears to be intoxicated and likely is. Basic lab work has been ordered. Orders placed to evaluate differential diagnosis based on the above differential, HPI and physical exam Lab Review: Laboratory results were reviewed and interpreted by myself the emergency room physician. Lab work is fairly unremarkable other than his blood alcohol level of 436. Looking back his blood alcohol level has been consistently in the 4 and 500s. I reviewed the patient's medical record. Assessment and plan: Acute alcohol intoxication Dehydration -Patient has been sleeping and off. We will recommend go whenever can find a ride this morning. He is remained stable. ?1 L normal saline bolus was given - Discharged home - Discussed plan with patient. Answered any questions. - Evaluation and treatment of this problem were appropriate in the emergency setting. Lab Data 08/07/24 23:09 08/07/24 23:09 Laboratory Results WBC 7.63 10^3/uL (3.29-11.43) 08/07/24 23:09 RBC 4.61 10^6/uL (3.85-5.65) 08/07/24 23:09 Hgb 14.70 g/dL (11.27-16.99) 08/07/24 23:09 Hct 44.5 % (37-53) 08/07/24 23:09 MCV 96.5 fl (82-101) 08/07/24 23:09 MCH 31.9 pg (27-33) 08/07/24 23:09 MCHC 33.0 g/dL (30-55) 08/07/24 23:09 RDW 15.0 % (12.1-15.1) 08/07/24 23:09 Plt Count 225 10^3/cmm (157-399) 08/07/24 23:09 MPV 9.9 fL (7.4-10.4) 08/07/24 23:09 Neut % (Auto) 58.7 % 08/07/24 23:09 Lymph % (Auto) 27.8 % 08/07/24 23:09 [place] % (Auto) 11.5 % 08/07/24 23:09 Eos % (Auto) 0.8 % 08/07/24 23:09 Baso % (Auto) 0.7 % 08/07/24 23:09 Neut # (Auto) 4.48 10^3/uL (1.8-7.7) 08/07/24 23:09 Lymph # (Auto) 2.1 10^3/uL (0.8-4.8) 08/07/24 23:09 [place] # (Auto) 0.9 10^3/uL (0.2-0.9) 08/07/24 23:09 Eos # (Auto) 0.1 10^3/uL (0.0-0.8) 08/07/24 23:09 Baso # (Auto) 0.1 10^3/uL (0.0-0.1) 08/07/24 23:09 Nucleated RBC % (auto) 0 % 08/07/24 23:09 Nucleated RBCs # 0.0 /100WBC 08/07/24 23:09 Sodium 144 mmol/L (136-145) 08/07/24 23:09 Potassium 3.5 mmol/L (3.5-5.1) 08/07/24 23:09 Chloride 108 mmol/L (98-107) H 08/07/24 23:09 Carbon Dioxide 27 mmol/L (22-29) 08/07/24 23:09 Anion Gap 12.5 (5-19) 08/07/24 23:09 BUN 11 mg/dL (6-20) 08/07/24 23:09 Creatinine 0.8 mg/dL (0.7-1.2) 08/07/24 23:09 GFR Calculation 103.2 mL/min (90-130) 08/07/24 23:09 Glucose 110 mg/dL (65-115) 08/07/24 23:09 Calculated Osmolality 298 mOsm/kg (285-295) H 08/07/24 23:09 Calcium 8.2 mg/dL (8.5-10.5) L 08/07/24 23:09 Total Bilirubin 0.2 mg/dL (0.15-1.2) 08/07/24 23:09 AST 19 U/L (0-40) 08/07/24 23:09 ALT 14 U/L (0-41) 08/07/24 23:09 Alkaline Phosphatase 69 U/L (40-130) 08/07/24 23:09 Total Protein 6.7 g/dL (6.6-8.7) 08/07/24 23:09 Albumin 4.2 g/dL (3.5-5.2) 08/07/24 23:09 Globulin 2.5 g/dL (1.3-4.6) 08/07/24 23:09 Salicylates < 0.3 mg/dL (3-10) L 08/07/24 23:09 Acetaminophen < 5.0 ug/mL (10-30) L 08/07/24 23:09 Ethyl Alcohol 436 mg/dL (0-10) H* 08/07/24 23:09 No radiology studies performed this visit Discharge Plan Discharge Patient Disposition: Home Clinical Impression: Alcoholic intoxication Condition: Stable Prescriptions: No Action Vivitrol 380 mg suspension,extended rel recon 380 mg IM .monthly fluoxetine 20 mg capsule 20 mg PO DAILY hydroxyzine HCl 25 mg tablet 25 mg PO TID PRN Discharge Orders: Discharge ED (Routine); Ordered 08/08/24 Ordered By: Zully Laguerre Referrals: Ino Stovall MD [Primary Care Provider] - Discharge Diet: Usual diet Discharge Activity: Increase activity as tolerated Patient Instructions: Alcohol Use Disorder (ED) Activity Restrictions/Additional Instructions: Thank you for choosing [facility] for your healthcare needs today. Please realize this is an emergency room and that we are providing you with a medical screening exam and this may not be complete and all inclusive of all the testing and or work up that you may need to determine your ailment or severity of your illness. You have been screened and evaluated and felt safe for discharge. Health conditions do change or evolve sometimes and as such it is important that you follow up with your Primary Doctor to be re checked, 3-5 days is a general good time frame for follow up. You are always welcome to return to the ED for re assessment if your symptoms are worsening or you have new concerns Coding Level of Care Code ED Assistant Site Manager for Remington Frank
[2024-08-07 23:17] LABS: Basophils # 0.1 10^3/uL (0.0-0.1); Basophils % 0.7 %; Eosinophils # 0.1 10^3/uL (0.0-0.8); Eosinophils % 0.8 %; Hematocrit 44.5 % (37-53); Lymphocytes # 2.1 10^3/uL (0.8-4.8); Lymphocytes % 27.8 %; Mean Corpuscular Hemoglobin 31.9 pg (27-33); Mean Corpuscular Volume 96.5 fl (82-101); Mean Platelet Volume 9.9 fL (7.4-10.4); Monocytes # 0.9 10^3/uL (0.2-0.9); Monocytes % 11.5 %; Neutrophils # 4.48 10^3/uL (1.8-7.7); Neutrophils % 58.7 %; Nucleated Red Blood Cells % 0 %; Platelet Count 225 10^3/cmm (157-399); Red Blood Count 4.61 10^6/uL (3.85-5.65); White Blood Count 7.63 10^3/uL (3.29-11.43)
[2024-08-07 23:36] VITALS: BP 127/83; PULSE 80; O2SAT 95
[2024-08-07 23:37] LABS: Alanine Aminotransferase 14 U/L (0-41); Albumin Level 4.2 g/dL (3.5-5.2); Alkaline Phosphatase 69 U/L (40-130); Anion Gap 12.5 (5-19); Aspartate Amino Transferase 19 U/L (0-40); Blood Urea Nitrogen 11 mg/dL (6-20); Calcium 8.2 mg/dL (8.5-10.5); Carbon Dioxide 27 mmol/L (22-29); Chloride 108 mmol/L (98-107); Creatinine Clr Calc Pharmacy 112.6112; Globulin 2.5 g/dL (1.3-4.6); Glomerular Filtration Rate 103.2 mL/min (90-130); Glucose 110 mg/dL (65-115); Osmolality Calculated 298 mOsm/kg (285-295); Potassium 3.5 mmol/L (3.5-5.1); Sodium 144 mmol/L (136-145); Total Bilirubin 0.2 mg/dL (0.15-1.2); Total Protein 6.7 g/dL (6.6-8.7)
[2024-08-07 23:47] LABS: Acetaminophen < 5.0 ug/mL (10-30); Salicylate < 0.3 mg/dL (3-10)
[2024-08-07 23:48] LABS: Alcohol Level 436 mg/dL (0-10)
[2024-08-08] VITALS (17 sets, daily range): BP systolic 84–121; BP diastolic 62–78; PULSE 66–91; RESP 14; O2SAT 91–100
== END 2024-08-08 07:08 | disposition home or self-care (01) ==
PROVIDERS: Emergency Provider Emergency Medicine; PCP Family Medicine Adult Medicine
DX: F10.129 Alcohol abuse with intoxication, unspecified (principal); Y90.8 Blood alcohol level of 240 mg/100 ml or more; Z72.0 Tobacco use
CPT/HCPCS: 36415; 80053; 80307; 85025; 99283

== ENCOUNTER 2024-09-27 19:48 | Inpatient (IN) | payer MEDICAID, SELFPAY ==
[2024-09-27 19:52] VITALS: BP 131/88; PULSE 87; TEMP 36.7; O2SAT 98; BMI 23.6
--- NOTE | 2024-09-27 20:09 | ECG_ITS ---
[facility] Test Date: 2024-09-27 Pat Name: Amos Guajardo Jr Department: Room: Gender: Male Health Systems Analyst: : 1975 Requested By: Zully Andres Order Number: [id number] Cordova MD: Maynor Harley M.D. Measurements Intervals [place] Rate: 75 P: 30 SD: 134 QRS: -24 QRSD: 105 T: 28 QT: 384 QTc: 430 Interpretive Statements SINUS RHYTHM BORDERLINE LEFT AXIS DEVIATION [QRS AXIS < -20] Compared to ECG 05/14/2021 10:38:03 Sinus arrhythmia no longer present ST (T wave) deviation no longer present Electronically Signed On 09-28-2024 12:11:36 CDT by Maynor Harley M.D. [email or web address]
--- NOTE | 2024-09-27 20:16 | ED.C_ITS ---
HPI - Psych 2 General: Chief Complaint: Psychiatric Symptoms Stated Complaint: depressed, out of meds.. MHE? Time Seen by Provider: 09/27/24 19:58 History of Present Illness: 49-year-old male with history of depress ion who has not been taking his medications recently who presents to the emergency room with his son. His son has stated that fall had discussed with him that he had no will to live and that he had noticed that there was a noose hanging from the ceiling in the garage. He asked his father about it and he would not say anything. The son called 911 and the police came and asked him to come to the emergency room. Here he says he is not suicidal but appears very depressed. He does not deny the noose nor does he deny what he said but he continually says he does not want to be on a 96-hour hold and he does not want to commit suicide. I discussed his case with the psychiatrist on-call who feels that he does need to be placed on hold Related Data Home Medications Medication Instructions Recorded Confirmed fluoxetine 20 mg capsule 20 mg PO DAILY 10/06/23 10/06/23 hydroxyzine HCl 25 mg tablet 25 mg PO TID PRN 10/06/23 10/06/23 naltrexone microspheres 380 mg 380 mg IM .monthly 10/06/23 10/06/23 intramuscular suspension,extended release (Vivitrol) Allergies Allergy/AdvReac Type Severity Reaction Status Date / Time No Known Allergies Allergy Verified 09/27/24 19:56 Review of Systems 2 Narrative: Constitutional symptoms: Negative except as documented in HPI. Skin symptoms: Negative except as documented in HPI. Eye symptoms: Negative except as documented in HPI. ENMT symptoms: Negative except as documented in HPI. Respiratory symptoms: Negative except as documented in HPI. Cardiovascular symptoms: Negative except as documented in HPI. Gastrointestinal symptoms: Negative except as documented in HPI. Genitourinary symptoms: Negative except as documented in HPI. Musculoskeletal symptoms: Negative except as documented in HPI. Neurologic symptoms: Negative except as documented in HPI. Psychiatric symptoms: Negative except as documented in HPI. Endocrine symptoms: Negative except as documented in HPI. PFS ED 2 PFSH: Medical History (Updated 09/27/24 @ 22:25 by Zully Laguerre MD) Well adult health check Fatigue Nocturia Scoliosis Torsion of appendix of testis Ganglion cyst History of suicidal ideation History of alcoholism Surgical History History of tonsillectomy Family History Mother Alcoholism Father Hypertension Social History Smoking and tobacco/nicotine status: current every day tobacco/nicotine user Alcohol intake: current Alcohol intake frequency: 3 or more drinks per day Alcohol type: hard liquor Substance/Drug Use: never Physical Exam 2 Narrative: EXAM NARRATIVE: General: Alert, no acute distress. Skin: Warm, dry. Head: Normocephalic, atraumatic. Neck: Supple, trachea midline. Eye: Extraocular movements are intact. Ears, nose, mouth and throat: mucosa moist. Cardiovascular: Regular, Normal peripheral perfusion. Respiratory: Lungs are clear to auscultation, respirations are non-labored, breath sounds are equal, Symmetrical chest wall expansion. Gastrointestinal: Soft, Nontender, Non distended Musculoskeletal: Normal ROM, no deformity. Neurological: Alert and oriented, No focal neurological deficit observed. Psychiatric: Patient appears depressed. Currently denying suicidal ideation. Course 2 Vital Signs: Vital signs: Vital Signs Temperature 98.0 F 09/27/24 19:52 Pulse Rate 87 09/27/24 19:52 Blood Pressure 131/88 09/27/24 19:52 Pulse Oximetry 98 09/27/24 19:52 Oxygen Delivery Me thod Room Air 09/27/24 19:52 MDM - Psych Medical Decision Making Differential diagnosis: Patient with reported depression and suicidal ideation. concerns for infection, alcohol intoxication, cardiac issues or other medical problems prior to psychiatric admission. Workup: labwork, ekg ordered to evaluate the pathologies and to clear the patient medically prior to psychiatric admission Lab Review: Laboratory results were reviewed and interpreted by myself the emergency room physician. Lab review: - Medically cleared. - EKG shows no ischemic changes. - Blood alcohol level is 305 -Tylenol and salicylate levels are negative. - Drug screen is negative - No signs of infection, urinalysis clear and white count is not elevated - No anemia. - BUN and creatinine are within normal limits. Consultation: I spoke with Dr. Daley who is on-call for psychiatry who agrees to admission Assessment and plan: Alcohol intoxication Depression Suicidal ideation -Admission to neuropsychiatric unit for continued evaluation and treatment. - All lab work was reviewed and interpreted personally by myself, the ER physician - Evaluation and treatment of this problem were appropriate in the emergency setting Lab Data 09/27/24 21:09/27/24: Laboratory Results WBC 15.51 10^3/uL (3.29-11.43) H 09/27/24: RBC 5.14 10^6/uL (3.85-5.65) 09/27/24: Hgb 16.40 g/dL (11.27-16.99) 09/27/24: Hct 48.3 % (37-53) 09/27/24: MCV 94.0 fl (82-101) 09/27/24: MCH 31.9 pg (27-33) 09/27/24: MCHC 34.0 g/dL (30-55) 09/27/24: RDW 14.1 % (12.1-15.1) 09/27/24: Plt Count 253 10^3/cmm (157-399) 09/27/24: MPV 9.9 fL (7.4-10.4) 09/27/24: Neut % (Auto) 79.9 % 09/27/24: Lymph % (Auto) 12.8 % 09/27/24: [place] % (Auto) 5.9 % 09/27/24: Eos % (Auto) 0.6 % 09/27/24: Baso % (Auto) 0.3 % 09/27/24: Neut # (Auto) 12.40 10^3/uL (1.8-7.7) H 09/27/24: Lymph # (Auto) 2.0 10^3/uL (0.8-4.8) 09/27/24: [place] # (Auto) 0.9 10^3/uL (0.2-0.9) 09/27/24: Eos # (Auto) 0.1 10^3/uL (0.0-0.8) 09/27/24: Baso # (Auto) 0.1 10^3/uL (0.0-0.1) 09/27/24 21:25 Nucleated RBC % (auto) 0 % 09/27/24 21:25 Nucleated RBCs # 0.0 /100WBC 09/27/24 21:25 Sodium 143 mmol/L (136-145) 09/27/24 21:25 Potassium 3.6 mmol/L (3.5-5.1) 09/27/24 21:25 Chloride 105 mmol/L (98-107) 09/27/24 21:25 Carbon Dioxide 26 mmol/L (22-29) 09/27/24 21:25 Anion Gap 15.6 (5-19) 09/27/24 21:25 BUN 10 mg/dL (6-20) 09/27/24 21: Creatinine 0.8 mg/dL (0.7-1.2) 09/27/24 21:25 GFR Calculation 103.2 mL/min (90-130) 09/27/24 21:25 Glucose 104 mg/dL (65-115) 09/27/24 21:25 Calculated Osmolality 295 mOsm/kg (285-295) 09/27/24 21:25 Calcium 8.8 mg/dL (8.5-10.5) 09/27/24 21:25 Total Bilirubin 0.2 mg/dL (0.15-1.2) 09/27/24 21:25 AST 16 U/L (0-40) 09/27/24 21:25 ALT 11 U/L (0-41) 09/27/24 21:25 Alkaline Phosphatase 83 U/L (40-130) 09/27/24 21:25 Total Protein 7.1 g/dL (6.6-8.7) 09/27/24 21:25 Albumin 4.5 g/dL (3.5-5.2) 09/27/24 21:25 Globulin 2.6 g/dL (1.3-4.6) 09/27/24 21:25 TSH 0.28 uIU/mL (0.27-4.20) 09/27/24 21:25 Urine Color Yellow (Yellow) 09/27/24 20:34 Urine Appearance Clear (CLEAR) 09/27/24:34 Urine pH 5.5 (5-7) 09/27/24 20:34 Ur Specific [place] 1.019 (1.005-1.030) 09/27/24 20:34 Urine Protein Trace (Negative) A 09/27/24 20:34 Urine Glucose (UA) Negative (Normal) 09/27/24 20:34 Urine Ketones Negative (Negative) 09/27/24 20:34 Urine Blood Negative (Negative) 09/27/24 20:34 Urine Nitrate Negative (Negative) 09/27/24 20:34 Urine Bilirubin Negative (Negative) 09/27/24 20:34 Urine Urobilinogen 1.0 mg/dL (Negative) 09/27/24 20:34 Ur Leukocyte Esterase Negative (Negative) 09/27/24 20:34 Urine RBC None /hpf (0-2) 09/27/24 20:34 Urine WBC None /hpf (0-5) 09/27/24 20:34 Ur Squamous Epith Cells None /hpf (0-5) 09/27/24 20:34 Amorphous Sediment Not Reportable 09/27/24 20:34 Urine Bacteria None /hpf (NONE) 09/27/24 20:34 Urine Mucus 2+ /hpf 09/27/24 20:34 Salicylates < 0.3 mg/dL (3-10) L 09/27/24 21:25 Urine Opiates Screen Negative ng/mL (Negative) 09/27/24 20:34 Acetaminophen < 5.0 ug/mL (10-30) L 09/27/24 21:25 Ur Barbiturates Screen Negative ng/mL (Negative) 09/27/24 20:34 Ur Phencyclidine Scrn Negative ng/mL (Negative) 09/27/24 20:34 Ur Amphetamines Screen Negative ng/mL (Negative) 09/27/24 20:34 U Benzodiazepines Scrn Negative ng/mL (Negative) 09/27/24 20:34 Urine Cocaine Screen Negative ng/mL (Negative) 09/27/24 20:34 U Marijuana (THC) Screen Negative ng/mL (Negative) 09/27/24 20:34 Ethyl Alcohol 305 mg/dL (0-10) H* 09/27/24 21:25 No radiology studies performed this visit Discharge Plan Discharge Patient Disposition: Admitted As Inpatient Admit Provider: Wilner Daley Clinical Impression: Suicidal ideation, Depression, Alcohol intoxication Condition: Stable Coding Level of Care Code ED Underground Distribution Engineer for Remington Frank
--- NOTE | 2024-09-27 20:40 | PC.NURSE ---
96 Hour Involuntary Hold Patient Rights have been read to the patient and a copy of the same has been given to him. Boarder Hand Graciela Loya was present at bedside at the time of presentation of Rights.
[2024-09-27 20:49] LABS: Bilirubin Urine Negative (Negative); Blood Urine Negative (Negative); Glucose Urine UA Negative (Normal); Ketones Urine Negative (Negative); Leukocyte Esterase Urine Negative (Negative); Nitrate Urine Negative (Negative); Protein Urine Trace (Negative); Specific Gravity, Urine 1.019 (1.005-1.030); Urine Appearance Clear (CLEAR); Urine Color Yellow (Yellow); pH Urine 5.5 (5-7)
[2024-09-27 20:56] LABS: Amphetamines Screen Urine Negative (Negative); Barbiturates Screen Urine Negative (Negative); Benzodiazepines Screen Urine Negative (Negative); Cocaine Screen Urine Negative (Negative); Opiate Screen Urine Negative (Negative); PCP Screen Urine Negative (Negative); THC Screen Urine Negative (Negative)
[2024-09-27 21:34] LABS: Basophils # 0.1 10^3/uL (0.0-0.1); Basophils % 0.3 %; Eosinophils # 0.1 10^3/uL (0.0-0.8); Eosinophils % 0.6 %; Hematocrit 48.3 % (37-53); Lymphocytes % 12.8 %; Mean Corpuscular Hemoglobin 31.9 pg (27-33); Mean Platelet Volume 9.9 fL (7.4-10.4); Monocytes # 0.9 10^3/uL (0.2-0.9); Monocytes % 5.9 %; Neutrophils % 79.9 %; Nucleated Red Blood Cells % 0 %; Platelet Count 253 10^3/cmm (157-399); Red Blood Count 5.14 10^6/uL (3.85-5.65); Red Cell Distribution Width 14.1 % (12.1-15.1); White Blood Count 15.51 10^3/uL (3.29-11.43)
[2024-09-27 21:58] LABS: Mucus Urine 2+ /hpf
[2024-09-27 22:04] VITALS: BP 120/83; PULSE 97; RESP 18; TEMP 36.5; O2SAT 97
[2024-09-27 22:04] LABS: Alanine Aminotransferase 11 U/L (0-41); Albumin Level 4.5 g/dL (3.5-5.2); Alkaline Phosphatase 83 U/L (40-130); Anion Gap 15.6 (5-19); Aspartate Amino Transferase 16 U/L (0-40); Blood Urea Nitrogen 10 mg/dL (6-20); Calcium 8.8 mg/dL (8.5-10.5); Carbon Dioxide 26 mmol/L (22-29); Chloride 105 mmol/L (98-107); Creatinine Clr Calc Pharmacy 117.7747; Globulin 2.6 g/dL (1.3-4.6); Glomerular Filtration Rate 103.2 mL/min (90-130); Glucose 104 mg/dL (65-115); Osmolality Calculated 295 mOsm/kg (285-295); Potassium 3.6 mmol/L (3.5-5.1); Sodium 143 mmol/L (136-145); Thyroid Stimulating Hormone 0.28 uIU/mL (0.27-4.20); Total Bilirubin 0.2 mg/dL (0.15-1.2); Total Protein 7.1 g/dL (6.6-8.7)
[2024-09-27 22:05] LABS: Acetaminophen < 5.0 ug/mL (10-30); Salicylate < 0.3 mg/dL (3-10)
[2024-09-27 22:06] LABS: Alcohol Level 305 mg/dL (0-10)
[2024-09-27 22:56] VITALS: BP 120/83; PULSE 97; RESP 18; TEMP 36.5; O2SAT 97
[2024-09-27] MEDS: hyDROXYzine 25 mg Capsule 50 MG PO (23:09)
[2024-09-27] MEDS: nicotine 4 mg lozenge MUCOUS MEM (23:09)
[2024-09-27] MEDS: trazodone 50 mg Tablet PO (23:09)
[2024-09-28] VITALS (7 sets, daily range): BP systolic 113–132; BP diastolic 61–90; PULSE 59–90; RESP 16–18; TEMP 36.6–37.3; O2SAT 94–98
[2024-09-28] MEDS: folic acid 1 mg Tablet PO (10:43)
[2024-09-28] MEDS: multivitamin therapeutic Tablet 1 TAB PO (10:43)
[2024-09-28] MEDS: nicotine 4 mg lozenge MUCOUS MEM ×2 (10:43→19:57)
[2024-09-28] MEDS: buPROPion XL (24 HR) 150 mg Tablet PO (10:44)
[2024-09-28] MEDS: thiamine 100 mg Tablet PO (10:44)
--- NOTE | 2024-09-28 15:44 | P.NPUHP_ITS ---
Providers/Chief Complaint 2 Admitting Physician: Wilner Daley MD Primary Care Provider: Ino Stovall MD Chief Complaint: depressed, out of meds.. MHE? HPI NPU History of Present Illness Amos Guajardo Jr is a 49 year old male who presented to the emergency department accompanied by his son. The patient had endorsed that he had been drinking alcohol and reported having consumed a significant quantity prior to admission. The patient's blood alcohol level was 305 on admission. The patient reports that he owns numerous guns and stated that he was working on something in the garage and states that his 22-year-old son had seen a noose hanging from the ceiling of the garage and misinterpreted that as being something that the patient was trying to use to hang himself. The patient had reported that he has suffered in the past from depression and did report that he was not suicidal but reported that he had ran out of his medication approximately 1 week ago with some complaints of worsening mood, decreased energy and increased feelings of sadness. He reported having suffered from depression in the past for several years. He had reported having greater than 20-year history of alcohol consumption and states that he has relapsed 2 times in the last year. He had reported a past history of alcohol withdrawal symptoms but denies any currently. He had acknowledged that he had previously been misinterpreted and had allegedly made comments of wanting to hurt himself. The patient reports that he had no such recall about wanting to hurt himself. He has reported continued alcohol use with a history of problems with epigastric pain secondary to his alcohol consumption. He reports that he is not currently feeling hopeless. He does report some difficulties with falling asleep. He denies any illicit substance use at this time. He reported that he is currently trying to attend groups and psychotherapy for managing his alcohol use and requested that he be placed on Vivitrol intramuscularly if possible. Patient had reported a past history of inpatient substance abuse history and treatment approximately 1-1/2 years ago. He reports that he is currently attempting to get back into outpatient therapy through [facility]. He denies any history of auditory or visual hallucinations. He denies any history of robbi. Inpatient psychiatric history: Patient reports 2 other previous inpatient hospitalizations most recently in 2020 here on the neuropsychiatric unit. Outpatient psychiatric history: He had reported limited treatment with an outpatient psychiatrist or therapist. He had reported a previous diagnosis of anxiety and depression. The patient's longest period of sobriety was 13 months. Substance abuse history: As stated above. He is currently attending [facility] while attending some [employer] groups as well. He had reported beginning alcohol use as an adolescent. Legal history: None reported Medical history: Nocturia, chronic fatigue Surgical history torsion, left wrist surgery, tonsillectomy Allergies: No known drug allergies Medications: Baclofen 10 mg 3 times a day, Wellbutrin XL 150 mg daily Family psychiatric history: Mother had a history of alcoholism Social history: Patient had been living with his girlfriend but recently broke up with her. He resides in [place] with his 3 children. He has 2 daughters that live outside of the home. He does have access to a firearm. 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 He reports that he had been raised by his biological parents. He reported no history of sexual physical or emotional abuse. He reports having graduated high school [place] and attending some college. He is currently unemployed. Meds NPU Home Medications Medication Instructions Recorded Confirmed Last Taken Type baclofen 10 mg tablet 10 mg PO TID PRN Pain 09/27/24 09/27/24 Unknown History bupropion HCl 150 mg 24 hr tablet, 150 mg PO DAILY 09/27/24 09/27/24 Unknown History extended release (Wellbutrin XL) Allergies Allergy/AdvReac Type Severity Reaction Status Date / Time No Known Allergies Allergy Verified 09/27/24 19:56 PFSH NPU 2 PFSH: Medical History (Updated 09/28/24 @ 16:01 by Wilner Daley MD) Well adult health check Fatigue Nocturia Scoliosis Torsion of appendix of testis Ganglion cyst History of suicidal ideation History of alcoholism Surgical History History of tonsillectomy Family History Mother Alcoholism Father Hypertension Social History Smoking and tobacco/nicotine status: current every day tobacco/nicotine user Alcohol intake: current Alcohol intake frequency: 3 or more drinks per day Alcohol type: hard liquor Substance/Drug Use: never Mental Status Exam 2 MSE Comments: The patient is a healthy white male with a mitali complexion and fair eye contact who was pleasant and cooperative on interview. His speech was normal in regards to rate rhythm and prosody. His gait was steady. His hygiene was fair. There was no evidence of any abnormal involuntary motor movements tics or tremors appreciated. His mood was described as depressed. His affect was slightly restricted in range and mood congruent. His thought process was linear logical and goal-directed. His thought content showed no evidence of homicidal or suicidal ideation as he minimized these. There was no clear evidence of delusional thinking. He did not appear to be responding to internal stimuli. He was alert and oriented to person,place ,time, and situation. His attention span was fair. His insight was partial. His judgment was poor. His impulse control appeared limited. Vitals/I&O/Wt Last Vital Signs Temp 97.8 F 09/28/24 12:00 Pulse 72 09/28/24 12:00 Resp 16 09/28/24 12:00 BP 125/76 09/28/24 12:00 Pulse Ox 97 09/28/24 12:00 O2 Del Method Room Air 09/28/24 04:00 Weight last 48 hrs Weight 74.843 kg Data NPU 09/27/24 21:25 09/27/24 21:25 A&P Assessment and plan (1) Depression: (2) Alcohol dependence: (3) Anxiety: (4) Suicidal ideation: Plan 49-year-old male admitted with alleged had suicidal ideation with concerns regarding worsening depression by the patient's son. Patient has a significant alcohol abuse history and has a history of alcohol-related withdrawals. He was agreeable to restarting his current medications and monitoring for alcohol related withdrawal symptoms at this time. #1.? Engage patient in individual milieu and group therapy.? #2? Encourage sober living treatment after discharge at the highest level of care to which he is willing to commit. #3??? CIWA for alcohol withdrawal #4?? TO-15 minute checks? #5?? Will attempt to gather collateral information. Restart outpatient medications including wellbutrin xl 150mg in am. Patient agreeable to trial of vivitrol IM monthly at discharge. Involuntary Hold Information 2 96 Hour Hold: 96 Hour Involuntary Admission: No Attestations NPU 2 Medical Necessity Statement*: Inpatient hospitalization is medically necessary and the clinically appropriate intervention at this time. We will monitor medications and make changes as indicated. Patient will be in the hospital for over two midnights. The patient's likely length of stay 1-3 days. Coding Level of Care Code Acute Code for Chg Fwd Diagnoses Depression F32.9 Alcohol dependence F10.20 Anxiety F41.9 Suicidal ideation R45.851
[2024-09-29 03:59] VITALS: BP 115/70; PULSE 66; RESP 16; TEMP 36.8; O2SAT 98
[2024-09-29 08:00] VITALS: BP 117/77; PULSE 64; RESP 18; TEMP 36.8; O2SAT 97
[2024-09-29] MEDS: multivitamin therapeutic Tablet 1 TAB PO (08:56)
[2024-09-29] MEDS: thiamine 100 mg Tablet PO (08:56)
[2024-09-29] MEDS: folic acid 1 mg Tablet PO (08:56)
[2024-09-29] MEDS: buPROPion XL (24 HR) 150 mg Tablet PO (08:56)
--- NOTE | 2024-09-29 09:40 | PC.NURSE ---
RESTING IN BED. DENIES SI/HI AND AVH AT THIS TIME. CIWA SCORE IS ZERO. DENIES PAIN. RATES ANXIETY AND DEPRESSION 2/10. HYGIENE ITEMS AND CLOTHING GIVEN FOR SHOWER. PT IS UPBEAT AND STATES HE IS READY TO DISCHARGE TODAY AT SOME POINT. PACING HALLS TO EXERCISE. ALL QUESTIONS ANSWERED AND SUPPORT WAS VOICED.
[2024-09-29] MEDS: nicotine 21 mg Patch 1 PATCH TRANSDERMA (09:43)
[2024-09-29 11:36] VITALS: BP 128/76; PULSE 64; RESP 18; TEMP 37.1; O2SAT 98
--- NOTE | 2024-09-29 15:14 | P.NPUPN_ITS ---
Subjective NPU 2 Subjective: Patient presented today reporting that he is doing okay. He identifies that he is fine at this is just a misunderstanding. He continues to relate a story that he is told other providers that this was a mistake by his sons part and that he identified some thin cord as an object that he was trying to hang himself with. Staff interaction with the son however identified that there was no confusion. He is logging for discharge as soon as possible and we discussed him being on a 96-hour hold and that we will identify whether we feel he is safe prior to that ending or need to extend the whole. He denies any side effects to the medications that have been restarted. Mental Status Exam 2 MSE Comments: The patient is a healthy white male with a mitali complexion and fair eye contact who was pleasant and cooperative on interview. His speech was normal in regards to rate rhythm and prosody. His gait was steady. His hygiene was fair. There was no evidence of any abnormal involuntary motor movements tics or tremors appreciated. His mood was described as depressed. His affect was slightly restricted in range and mood congruent. His thought process was linear logical and goal-directed. His thought content showed no evidence of homicidal or suicidal ideation as he minimized these. There was no clear evidence of delusional thinking. He did not appear to be responding to internal stimuli. He was alert and oriented to person,place ,time, and situation. His attention span was fair. His insight was partial. His judgment was poor. His impulse control appeared limited. Vitals/I&O/Wt Last Vital Signs Temp 98.7 F 09/29/24 11:36 Pulse 64 09/29/24 11:36 Resp 18 09/29/24 11:36 BP 128/76 09/29/24 11:36 Pulse Ox 98 09/29/24 11:36 O2 Del Method Room Air 09/29/24 08:00 Weight last 48 hrs Weight 74.843 kg Data NPU 09/27/24 21:25 09/27/24 21:25 A&P Assessment and plan (1) Depression: (2) Alcohol dependence: (3) Anxiety: (4) Suicidal ideation: Plan 49-year-old male admitted with alleged had suicidal ideation with concerns regarding worsening depression by the patient's son. Patient has a significant alcohol abuse history and has a history of alcohol-related withdrawals. He was agreeable to restarting his current medications and monitoring for alcohol related withdrawal symptoms at this time. 1. Engage patient in individual milieu and group therapy.? 2. Encourage sober living treatment after discharge at the highest level of care to which he is willing to commit. 3.? CIWA for alcohol withdrawal 4. TO-15 minute checks? 5. Will attempt to gather collateral information. Restart outpatient medications including wellbutrin xl 150mg in am. Patient agreeable to trial of vivitrol IM monthly at discharge. 6. Patient lobbying for discharge however collateral information thus far suggesting he is downplaying a significant suicide attempt. Involuntary Hold Information 2 96 Hour Hold: 96 Hour Involuntary Admission: No Attestations NPU 2 Medical Necessity Statement*: Inpatient hospitalization is medically necessary and the clinically appropriate intervention at this time. We will monitor medications and make changes as indicated. The patient's likely length of stay 3-5 days. Coding Level of Care Code Acute Code for [facility] Diagnoses Depression F32.9 Alcohol dependence F10.20 Anxiety F41.9 Suicidal ideation R45.851
[2024-09-29 15:25] VITALS: BP 104/69; PULSE 83; RESP 16; TEMP 36.7; O2SAT 99
[2024-09-29] MEDS: nicotine 4 mg lozenge MUCOUS MEM ×2 (17:07→20:43)
[2024-09-29 20:00] VITALS: BP 125/78; PULSE 77; RESP 16; TEMP 36.8; O2SAT 99
[2024-09-29] MEDS: trazodone 50 mg Tablet PO (20:42)
[2024-09-29] MEDS: hyDROXYzine 25 mg Capsule 50 MG PO (20:42)
[2024-09-29] MEDS: baclofen 10 mg Tablet PO (20:43)
[2024-09-30] VITALS: BP 107/64; PULSE 58; RESP 15; O2SAT 97
[2024-09-30 04:00] VITALS: BP 122/77; PULSE 66; RESP 15; O2SAT 98
[2024-09-30 08:00] VITALS: BP 119/74; PULSE 68; RESP 18; TEMP 36.9; O2SAT 98
--- NOTE | 2024-09-30 08:11 | P.NPUPN_ITS ---
Subjective NPU 2 Subjective: Patient presented today reporting that he is doing okay. He continued to lobby for discharge and continued to report a narrative that news that his son had identified was not in fact the news however his son has been positive and staff conversation it was in fact a device rigged to allow his father to hang himself. We agreed that this mortgage or loan underwriter would speak to his son and try to identify if there is any chance he is at a change of heart. His children visited him yesterday and he seems to feel that they are ready for him to come home. He denied any side effects to the medication. Mental Status Exam 2 MSE Comments: The patient is a healthy white male with a mitali complexion and fair eye contact who was pleasant and cooperative on interview. His speech was normal in regards to rate rhythm and prosody. His gait was steady. His hygiene was fair. There was no evidence of any abnormal involuntary motor movements tics or tremors appreciated. His mood was described as depressed. His affect was slightly restricted in range and mood congruent. His thought process was linear logical and goal-directed. His thought content showed no evidence of homicidal or suicidal ideation as he minimized these. There was no clear evidence of delusional thinking. He did not appear to be responding to internal stimuli. He was alert and oriented to person,place ,time, and situation. His attention span was fair. His insight was partial. His judgment was poor. His impulse control appeared limited. Vitals/I&O/Wt Last Vital Signs Temp 98.1 F 09/30/24 22:00 Pulse 79 09/30/24 22:00 Resp 18 09/30/24 22:00 BP 111/75 09/30/24 22:00 Pulse Ox 98 09/30/24 22:00 O2 Del Method Room Air 09/30/24 22:00 Data NPU 09/27/24 21:25 09/27/24 21:25 A&P Assessment and plan (1) Depression: (2) Alcohol dependence: (3) Anxiety: (4) Suicidal ideation: Plan 49-year-old male admitted with alleged had suicidal ideation with concerns regarding worsening depression by the patient's son. Patient has a significant alcohol abuse history and has a history of alcohol-related withdrawals. He was agreeable to restarting his current medications and monitoring for alcohol related withdrawal symptoms at this time. 1. Engage patient in individual milieu and group therapy.? 2. Encourage sober living treatment after discharge at the highest level of care to which he is willing to commit. 3.? CIWA for alcohol withdrawal 4. TO-15 minute checks? 5. Will attempt to gather collateral information. Restarted outpatient medications including wellbutrin xl 150mg in am. Patient agreeable to trial of vivitrol IM monthly at discharge. 6. Patient lobbying for discharge however collateral information thus far suggesting he is downplaying a significant suicide attempt. Involuntary Hold Information 2 96 Hour Hold: 96 Hour Involuntary Admission: No Attestations NPU 2 Medical Necessity Statement*: Inpatient hospitalization is medically necessary and the clinically appropriate intervention at this time. We will monitor medications and make changes as indicated. The patient's likely length of stay 3-5 days. Coding Level of Care Code Acute Code for Chg Fwd Diagnoses Depression F32.9 Alcohol dependence F10.20 Anxiety F41.9 Suicidal ideation R45.851
[2024-09-30] MEDS: buPROPion XL (24 HR) 150 mg Tablet PO (09:07)
[2024-09-30] MEDS: folic acid 1 mg Tablet PO (09:07)
[2024-09-30] MEDS: thiamine 100 mg Tablet PO (09:07)
[2024-09-30] MEDS: multivitamin therapeutic Tablet 1 TAB PO (09:07)
[2024-09-30] MEDS: nicotine 4 mg lozenge MUCOUS MEM ×5 (09:12→21:44)
--- NOTE | 2024-09-30 09:39 | PC.NURSE ---
Morning assessment Calm and cooperative during assessment. 0/10 on CIWA. Denies pain, anxiety, SI, HI, AVH, and depression.
[2024-09-30 14:00] VITALS: BP 116/76; PULSE 66; RESP 18; TEMP 36.6; O2SAT 99
[2024-09-30] MEDS: baclofen 10 mg Tablet PO (21:18)
[2024-09-30] MEDS: hyDROXYzine 25 mg Capsule 50 MG PO (21:18)
[2024-09-30] MEDS: trazodone 50 mg Tablet PO (21:18)
[2024-09-30 22:00] VITALS: BP 111/75; PULSE 79; RESP 18; TEMP 36.7; O2SAT 98
[2024-10-01 06:00] VITALS: BP 124/88; PULSE 73; RESP 17; TEMP 36.4; O2SAT 99
[2024-10-01] MEDS: nicotine 4 mg lozenge MUCOUS MEM ×7 (06:14→22:06)
[2024-10-01] MEDS: folic acid 1 mg Tablet PO (08:30)
[2024-10-01] MEDS: multivitamin therapeutic Tablet 1 TAB PO (08:30)
[2024-10-01] MEDS: thiamine 100 mg Tablet PO (08:30)
[2024-10-01] MEDS: buPROPion XL (24 HR) 150 mg Tablet PO (08:30)
[2024-10-01 13:42] VITALS: BP 116/78; PULSE 74; RESP 16; TEMP 37; O2SAT 99
--- NOTE | 2024-10-01 15:09 | P.NPUPN_ITS ---
Subjective NPU 2 Subjective: Patient presents today reporting that he is doing fine. He continues to be in denial for any issues of lethality. We discussed the social work team returning tomorrow and is looking at discharge possibilities and also connecting with his son to determine whether his concerns about this being an active suicide attempt prior to him being admitted will be explored. He denied any side effects to the medication. Mental Status Exam 2 MSE Comments: The patient is a healthy white male with a mitali complexion and fair eye contact who was pleasant and cooperative on interview. His speech was normal in regards to rate rhythm and prosody. His gait was steady. His hygiene was fair. There was no evidence of any abnormal involuntary motor movements tics or tremors appreciated. His mood was described as depressed. His affect was slightly restricted in range and mood congruent. His thought process was linear logical and goal-directed. His thought content showed no evidence of homicidal or suicidal ideation as he minimized these. There was no clear evidence of delusional thinking. He did not appear to be responding to internal stimuli. He was alert and oriented to person,place ,time, and situation. His attention span was fair. His insight was partial. His judgment was poor. His impulse control appeared limited. Vitals/I&O/Wt Last Vital Signs Temp 98.6 F 10/01/24 13:42 Pulse 74 10/01/24 13:42 Resp 16 10/01/24 13:42 BP 116/78 10/01/24 13:42 Pulse Ox 99 10/01/24 13:42 O2 Del Method Room Air 10/01/24 13:42 Weight last 48 hrs Weight 75.013 kg Data NPU 09/27/24 21:25 09/27/24 21:25 A&P Assessment and plan (1) Depression: (2) Alcohol dependence: (3) Anxiety: (4) Suicidal ideation: Plan 49-year-old male admitted with alleged had suicidal ideation with concerns regarding worsening depression by the patient's son. Patient has a significant alcohol abuse history and has a history of alcohol-related withdrawals. He was agreeable to restarting his current medications and monitoring for alcohol related withdrawal symptoms at this time. 1. Engage patient in individual milieu and group therapy.? 2. Encourage sober living treatment after discharge at the highest level of care to which he is willing to commit. 3.? CIWA for alcohol withdrawal 4. TO-15 minute checks? 5. Will attempt to gather collateral information. Restarted outpatient medications including wellbutrin xl 150mg in am. Patient agreeable to trial of vivitrol IM monthly at discharge. 6. Patient lobbying for discharge however collateral information thus far suggesting he is downplaying a significant suicide attempt. We will consider discharge versus writing 21-day hold tomorrow. Involuntary Hold Information 2 96 Hour Hold: 96 Hour Involuntary Admission: No Attestations NPU 2 Medical Necessity Statement*: Inpatient hospitalization is medically necessary and the clinically appropriate intervention at this time. We will monitor medications and make changes as indicated. The patient's likely length of stay 1-3 days. Coding Level of Care Code Acute Code for [facility] Fwd Diagnoses Depression F32.9 Alcohol dependence F10.20 Anxiety F41.9 Suicidal ideation R45.851
[2024-10-01 20:12] VITALS: BP 105/74; PULSE 75; RESP 18; TEMP 37.3; O2SAT 98
[2024-10-01] MEDS: hyDROXYzine 25 mg Capsule 50 MG PO (22:06)
[2024-10-01] MEDS: trazodone 50 mg Tablet PO (22:06)
[2024-10-02] MEDS: OLANZapine 5 mg ODT PO (01:05)
[2024-10-02 06:00] VITALS: BP 122/74; PULSE 63; RESP 17; TEMP 36.5; O2SAT 98
[2024-10-02] MEDS: nicotine 4 mg lozenge MUCOUS MEM ×7 (06:12→21:46)
[2024-10-02] MEDS: folic acid 1 mg Tablet PO (09:07)
[2024-10-02] MEDS: thiamine 100 mg Tablet PO (09:07)
[2024-10-02] MEDS: buPROPion XL (24 HR) 150 mg Tablet PO (09:07)
[2024-10-02] MEDS: multivitamin therapeutic Tablet 1 TAB PO (09:07)
--- NOTE | 2024-10-02 09:38 | PC.NURSE ---
Patient's son Abe called. Patient's son states that father gave him two different stories about the noose in the garage. One story is that he made it to hang clothes on. Son states that they have a large rack with plenty of room available for clothing. Patient later said that the patient made the noose the day before as he was making a garden box for his daughter, that he would come in the garage, tie part of the know, go back outside and work on the box, come back in...Per son, what patient said should be taken with a grain of salt. 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 Son said that patient cares about how he appears to others. Son says that the wellbutrin will help with with the SI, but that if he doesn't get vivitrol shot and started on antabuse prior to discharge, that he will go back to drinking. When he drinks, he does not take his antidepressant so it is a cycle. Son's number is [phone]. Abe is willing to talk if we have any more questions.
[2024-10-02 13:50] VITALS: BP 116/74; PULSE 68; RESP 16; TEMP 36.6; O2SAT 97
--- NOTE | 2024-10-02 14:47 | P.NPUPN_ITS ---
Subjective NPU 2 Subjective: Patient presented today reporting that he is doing okay. We discussed the fact that his son continued to express a very clear recollection of the situation that identified this is not the misunderstanding that he continues to cling to. We discussed the importance of being accountable for the circumstance so that we can treat the reality of totality of his situation. We discussed the likelihood of filing for an extension on his hold as we try to get to the bottom of his situation. He denied any side effects to the medication. Mental Status Exam 2 MSE Comments: The patient is a healthy white male with a mitali complexion and fair eye contact who was pleasant and cooperative on interview. His speech was normal in regards to rate rhythm and prosody. His gait was steady. His hygiene was fair. There was no evidence of any abnormal involuntary motor movements tics or tremors appreciated. His mood was described as depressed. His affect was slightly restricted in range and mood congruent. His thought process was linear logical and goal-directed. His thought content showed no evidence of homicidal or suicidal ideation as he minimized these. There was no clear evidence of delusional thinking. He did not appear to be responding to internal stimuli. He was alert and oriented to person,place ,time, and situation. His attention span was fair. His insight was partial. His judgment was poor. His impulse control appeared limited. Vitals/I&O/Wt Last Vital Signs Temp 97.8 F 10/02/24 13:50 Pulse 68 10/02/24 13:50 Resp 16 10/02/24 13:50 BP 116/74 10/02/24 13:50 Pulse Ox 97 10/02/24 13:50 O2 Del Method Room Air 10/02/24 13:50 Weight last 48 hrs Weight 75.013 kg Data NPU 09/27/24 21:25 09/27/24 21:25 A&P Assessment and plan (1) Depression: (2) Alcohol dependence: (3) Anxiety: (4) Suicidal ideation: Plan 49-year-old male admitted with alleged had suicidal ideation with concerns regarding worsening depression by the patient's son. Patient has a significant alcohol abuse history and has a history of alcohol-related withdrawals. He was agreeable to restarting his current medications and monitoring for alcohol related withdrawal symptoms at this time. 1. Engage patient in individual milieu and group therapy.? 2. Encourage sober living treatment after discharge at the highest level of care to which he is willing to commit. 3.? CIWA for alcohol withdrawal 4. TO-15 minute checks? 5. Will attempt to gather collateral information. Restarted outpatient medications including wellbutrin xl 150mg in am. Patient agreeable to trial of vivitrol IM monthly at discharge. 6. Patient lobbying for discharge however collateral information thus far suggesting he is downplaying a significant suicide attempt. Filed for 21-day hold. Involuntary Hold Information 2 96 Hour Hold: 96 Hour Involuntary Admission: No Attestations NPU 2 Medical Necessity Statement*: Inpatient hospitalization is medically necessary and the clinically appropriate intervention at this time. We will monitor medications and make changes as indicated. The patient's likely length of stay 1-3 days. Coding Level of Care Code Acute Code for g Fwd Diagnoses Depression F32.9 Alcohol dependence F10.20 Anxiety F41.9 Suicidal ideation R45.851
--- NOTE | 2024-10-02 18:30 | PC.NURSE ---
Patient's son called to say that he remembered a response his father had when he asked him why he keeps drinking. Patient reportedly said that he is trying to drink myself to oblivion or until I become mentally retarded. Dr. Roa notified of this.
[2024-10-02 19:14] VITALS: BP 130/85; PULSE 74; RESP 18; TEMP 37.1; O2SAT 100
[2024-10-02] MEDS: trazodone 50 mg Tablet PO (21:46)
[2024-10-02] MEDS: hyDROXYzine 25 mg Capsule 50 MG PO (21:46)
[2024-10-02] MEDS: acetaminophen 325 mg Tablet 650 MG PO (22:00)
[2024-10-03 06:00] VITALS: BP 134/87; PULSE 60; RESP 18; TEMP 36.6; O2SAT 97
[2024-10-03] MEDS: nicotine 4 mg lozenge MUCOUS MEM ×8 (06:08→21:27)
[2024-10-03] MEDS: thiamine 100 mg Tablet PO (08:56)
[2024-10-03] MEDS: multivitamin therapeutic Tablet 1 TAB PO (08:56)
[2024-10-03] MEDS: folic acid 1 mg Tablet PO (08:56)
[2024-10-03] MEDS: buPROPion XL (24 HR) 150 mg Tablet PO (08:56)
[2024-10-03 13:33] VITALS: BP 143/89; PULSE 78; RESP 16; TEMP 37.2; O2SAT 99
--- NOTE | 2024-10-03 16:58 | P.NPUPN_ITS ---
Subjective NPU 2 Subjective: Patient presented today reporting that he is doing okay. We discussed the fact that he had follow-up with the 21-day hold and that we had concerned about him not really embracing truthfulness of this situation and impairment. We discussed the possibility of his son coming to visit when he is off work tomorrow with the possibility for discharge, but with the plans for a family meeting to discuss concerns about his safety as he continues to downplay any aspect of this having been a suicide attempt. He denies any side effects to medication. Mental Status Exam 2 MSE Comments: This is a well-nourished well-developed white male in hospital scrubs with appropriate grooming and eye contact with a mitali complexion. No abnormal movements. Cooperative with exam in mild distress. His speech was normal in regards to rate rhythm and prosody. His gait was steady. His mood was described as better, affect was euthymic. His thought process was linear logical and goal-directed. His thought content showed no evidence of homicidal or suicidal ideation as he denied and minimized these. There was no clear evidence of delusional thinking. He did not appear to be responding to internal stimuli. He was alert and oriented to person,place ,time, and situation. His attention span was fair. His insight was limited. His judgment was poor. His impulse control appeared limited. Vitals/I&O/Wt Last Vital Signs Temp 99 F 10/03/24 13:33 Pulse 78 10/03/24 13:33 Resp 16 10/03/24 13:33 BP 143/89 10/03/24 13:33 Pulse Ox 99 10/03/24 13:33 O2 Del Method Room Air 10/03/24 13:33 Data NPU 09/27/24 21:25 09/27/24 21:25 A&P Assessment and plan (1) Depression: (2) Alcohol dependence: (3) Anxiety: (4) Suicidal ideation: Plan 49-year-old male admitted with alleged had suicidal ideation with concerns regarding worsening depression by the patient's son. Patient has a significant alcohol abuse history and has a history of alcohol-related withdrawals. He was agreeable to restarting his current medications and monitoring for alcohol related withdrawal symptoms at this time. 1. Engage patient in individual milieu and group therapy.? 2. Encourage sober living treatment after discharge at the highest level of care to which he is willing to commit. 3.? CIWA for alcohol withdrawal 4. TO-15 minute checks? 5. Will attempt to gather collateral information. Restarted outpatient medications including wellbutrin xl 150mg in am. Patient agreeable to trial of vivitrol IM monthly at discharge. 6. Patient lobbying for discharge however collateral information thus far suggesting he is downplaying a significant suicide attempt. Filed for 21-day hold. 7. Will attempt to meet with son tomorrow to make sure we have identified and evaluated all concerns based on his current presentation. Involuntary Hold Information 2 96 Hour Hold: 96 Hour Involuntary Admission: No Attestations NPU 2 Medical Necessity Statement*: Inpatient hospitalization is medically necessary and the clinically appropriate intervention at this time. We will monitor medications and make changes as indicated. The patient's likely length of stay 1-2 days unless we have the 21- day hold hearing. Coding Level of Care Code Acute Code for [facility] Fwd Diagnoses Depression F32.9 Alcohol dependence F10.20 Anxiety F41.9 Suicidal ideation R45.851
[2024-10-03 19:57] VITALS: BP 132/83; PULSE 73; RESP 18; TEMP 37.1; O2SAT 97
[2024-10-03] MEDS: hyDROXYzine 25 mg Capsule 50 MG PO (21:27)
[2024-10-03] MEDS: trazodone 50 mg Tablet PO (21:28)
[2024-10-04 06:00] VITALS: BP 100/71; PULSE 67; RESP 18; TEMP 36.8; O2SAT 100
[2024-10-04] MEDS: nicotine 4 mg lozenge MUCOUS MEM ×7 (06:02→18:17)
[2024-10-04] MEDS: multivitamin therapeutic Tablet 1 TAB PO (08:17)
[2024-10-04] MEDS: buPROPion XL (24 HR) 150 mg Tablet PO (08:17)
[2024-10-04] MEDS: folic acid 1 mg Tablet PO (08:17)
[2024-10-04] MEDS: thiamine 100 mg Tablet PO (08:17)
--- NOTE | 2024-10-04 11:41 | P.NPUPN_ITS ---
Subjective NPU 2 Subjective: Patient presented today reporting that he is doing fine. I had an opportunity to meet with him the son and they discussed concerns about his functioning across the past decade even when he was sober. We had a long discussion about him cognitively reframing things at figuring out how to let go of shame and attachment to his addiction. He denied any side effects to the medication and we discussed a plan for discharge in the morning. Mental Status Exam 2 MSE Comments: This is a well-nourished well-developed white male in hospital scrubs with appropriate grooming and eye contact with a mitali complexion. No abnormal movements. Cooperative with exam in mild distress. His speech was normal in regards to rate rhythm and prosody. His gait was steady. His mood was described as better, affect was euthymic. His thought process was linear logical and goal-directed. His thought content showed no evidence of homicidal or suicidal ideation as he denied and minimized these. There was no clear evidence of delusional thinking. He did not appear to be responding to internal stimuli. He was alert and oriented to person,place ,time, and situation. His attention span was fair. His insight was improving. His judgment was limited but improving. His impulse control appeared limited. Vitals/I&O/Wt Last Vital Signs Temp 98.3 F 10/04/24 06:00 Pulse 67 10/04/24 06:00 Resp 18 10/04/24 06:00 BP 100/71 10/04/24 06:00 Pulse Ox 100 10/04/24 06:00 O2 Del Method Room Air 10/03/24 13:33 Data NPU 09/27/24 21:25 09/27/24 21:25 A&P Assessment and plan (1) Depression: (2) Alcohol dependence: (3) Anxiety: (4) Suicidal ideation: Plan 49-year-old male admitted with alleged had suicidal ideation with concerns regarding worsening depression by the patient's son. Patient has a significant alcohol abuse history and has a history of alcohol-related withdrawals. He was agreeable to restarting his current medications and monitoring for alcohol related withdrawal symptoms at this time. 1. Engage patient in individual milieu and group therapy.? 2. Encourage sober living treatment after discharge at the highest level of care to which he is willing to commit. 3.? CIWA for alcohol withdrawal 4. TO-15 minute checks? 5. Will attempt to gather collateral information. Restarted outpatient medications including wellbutrin xl 150mg in am. Patient agreeable to trial of vivitrol IM monthly at discharge. 6. Patient lobbying for discharge however collateral information thus far suggesting he is downplaying a significant suicide attempt. Filed for 21-day hold. 7. Met with patient and son about discharge planning and any concerns for lethality. We discussed likely discharge tomorrow. Involuntary Hold Information 2 96 Hour Hold: 96 Hour Involuntary Admission: No Attestations NPU 2 Medical Necessity Statement*: Inpatient hospitalization is medically necessary and the clinically appropriate intervention at this time. We will monitor medications and make changes as indicated. The patient's likely length of stay 1-2 days unless we have the 21- day hold hearing. Coding Level of Care Code Acute Code for [facility] Fwd Diagnoses Depression F32.9 Alcohol dependence F10.20 Anxiety F41.9 Suicidal ideation R45.851
[2024-10-04 14:00] VITALS: BP 121/81; PULSE 70; RESP 16; TEMP 37.2; O2SAT 99
[2024-10-04 19:56] VITALS: BP 122/81; PULSE 76; RESP 19; TEMP 36.8; O2SAT 100
[2024-10-04] MEDS: hyDROXYzine 25 mg Capsule 50 MG PO (20:01)
[2024-10-04] MEDS: trazodone 50 mg Tablet PO (20:01)
[2024-10-05 06:00] VITALS: BP 115/79; PULSE 71; RESP 18; TEMP 36.4; O2SAT 100
[2024-10-05] MEDS: nicotine 4 mg lozenge MUCOUS MEM ×4 (06:01→12:42)
--- NOTE | 2024-10-05 06:50 | PC.NURSE ---
pt asked to shave so this real estate underwriter gave his electric razor and watched pt shave
[2024-10-05] MEDS: buPROPion XL (24 HR) 150 mg Tablet PO (08:29)
[2024-10-05] MEDS: multivitamin therapeutic Tablet 1 TAB PO (08:29)
[2024-10-05] MEDS: folic acid 1 mg Tablet PO (08:29)
[2024-10-05] MEDS: thiamine 100 mg Tablet PO (08:29)
--- NOTE | 2024-10-05 12:31 | P.NPUDS_ITS ---
Diagnoses at Discharge Discharge Diagnosis (1) Depression: Status: Acute (2) Alcohol dependence: Status: Acute (3) Anxiety: Status: Acute (4) Suicidal ideation: Status: Acute Reason for Visit Reason for Visit: depressed, out of meds.. MHE? Involuntary Hold Information 96 Hour Hold: 96 Hour Involuntary Admission: No Mental Status Exam MSE Comments: This is a well-nourished well-developed white male in hospital scrubs with appropriate grooming and eye contact with a mitali complexion. No abnormal movements. Cooperative with exam in mild distress. His speech was normal in regards to rate rhythm and prosody. His gait was steady. His mood was described as better, affect was euthymic. His thought process was linear logical and goal-directed. His thought content showed no evidence of homicidal or suicidal ideation as he denied and minimized these. There was no clear evidence of delusional thinking. He did not appear to be responding to internal stimuli. He was alert and oriented to person,place ,time, and situation. His attention span was fair. His insight was improving. His judgment was limited but i mproving. His impulse control appeared limited. Discharge Data Studies Completed and Pending: Laboratory Results WBC 15.51 10^3/uL (3. 29-11.43) H 09/27/24: RBC 5.14 10^6/uL (3.8 5-5.65) 09/27/24 21: Hgb 16.40 g/dL (11.27 -16.99) 09/27/24: Hct 48.3 % (37-53) 09/27/24: MCV 94.0 fl (82-101) 09/27/24 21: MCH 31.9 pg (27-33) 09/27/24 21: MCHC 34.0 g/dL (30-55) 09/27/24: RDW 14.1 % (12.1-15.1 ) 09/27/24: Plt Count 253 10^3/cmm (157 -399) 09/27/24 21: MPV 9.9 fL (7.4-10.4) 09/27/24 21: Neut % (Auto) 79.9 % 09/27/24: Lymph % (Auto) 12.8 % 09/27/24 21:25 [place] % (Auto) 5.9 % 09/27/24 21:25 Eos % (Auto) 0.6 % 09/27/24 21:25 Baso % (Auto) 0.3 % 09/27/24 21:25 Neut # (Auto) 12.40 10^3/uL (1. 8-7.7) H 09/27/24 21:25 Lymph # (Auto) 2.0 10^3/uL (0.8- 4.8) 09/27/24 21:25 [place] # (Auto) 0.9 10^3/uL (0.2- 0.9) 09/27/24 21:25 Eos # (Auto) 0.1 10^3/uL (0.0- 0.8) 09/27/24 21:25 Baso # (Auto) 0.1 10^3/uL (0.0- 0.1) 09/27/24 21: Nucleated RBC % (a uto) 0 % 09/27/24 21: Nucleated RBCs # 0.0 /100WBC 09/27/24 21:25 Sodium 143 mmol/L (136-1 45) 09/27/24 21:25 Potassium 3.6 mmol/L (3.5-5 .1) 09/27/24 21: Chloride 105 mmol/L (98-10 7) 09/27/24 21: Carbon Dioxide 26 mmol/L (22-29) 09/27/24 21:25 Anion Gap 15.6 (5-19) 09/27/24 21:25 BUN 10 mg/dL (6-20) 09/27/24 21:25 Creatinine 0.8 mg/dL (0.7-1. 2) 09/27/24 21:25 GFR Calculation 103.2 mL/min (90- 130) 09/27/24 21:25 Glucose 104 mg/dL (65-115 ) 09/27/24 21:25 Calculated Osmolal ity 295 mOsm/kg (285- 295) 09/27/24 21:25 Calcium 8.8 mg/dL (8.5-10 .5) 09/27/24 21:25 Total Bilirubin 0.2 mg/dL (0.15-1 .2) 09/27/24 21:25 AST 16 U/L (0-40) 09/27/24 21:25 ALT 11 U/L (0-41) 09/27/24 21:25 Alkaline Phosphata se 83 U/L (40-130) 09/27/24 21:25 Total Protein 7.1 g/dL (6.6-8.7 ) 09/27/24 21:25 Albumin 4.5 g/dL (3.5-5.2 ) 09/27/24 21:25 Globulin 2.6 g/dL (1.3-4.6 ) 09/27/24 21:25 TSH 0.28 uIU/mL (0.27 -4.20) 09/27/24 21:25 Urine Color Yellow (Yellow) 09/27/24 20:34 Urine Appearance Clear (CLEAR) 09/27/24 20:34 Urine pH 5.5 (5-7) 09/27/24 20:34 Ur Specific Gravit y 1.019 (1.005-1.0 30) 09/27/24 20:34 Urine Protein Trace (Negative) A 09/27/24 20:34 Urine Glucose (UA) Negative (Normal ) 09/27/24 20:34 Urine Ketones Negative (Negati ve) 09/27/24 20:34 Urine Blood Negative (Negati ve) 09/27/24:34 Urine Nitrate Negative (Negati ve) 09/27/24 20:34 Urine Bilirubin Negative (Negati ve) 09/27/24 20:34 Urine Urobilinogen 1.0 mg/dL (Negati ve) 09/27/24 20:34 Ur Leukocyte Mamie ase Negative (Negati ve) 09/27/24 20:34 Urine RBC None /hpf (0-2) 09/27/24 20:34 Urine WBC None /hpf (0-5) 09/27/24 20:34 Ur Squamous Epith Cells None /hpf (0-5) 09/27/24 20:34 Amorphous Sediment Not Reportable 09/27/24 20:34 Urine Bacteria None /hpf (NONE) 09/27/24 20:34 Urine Mucus 2+ /hpf 09/27/24 20:34 Salicylates < 0.3 mg/dL (3-10 ) L 09/27/24 21:25 Urine Opiates Scre en Negative ng/mL (N egative) 09/27/24 20:34 Acetaminophen < 5.0 ug/mL (10-3 0) L 09/27/24 21:25 Ur Barbiturates Sc reen Negative ng/mL (N egative) 09/27/24 20:34 Ur Phencyclidine S crn Negative ng/mL (N egative) 09/27/24 20:34 Ur Amphetamines Sc reen Negative ng/mL (N egative) 09/27/24 20:34 U Benzodiazepines Scrn Negative ng/mL (N egative) 09/27/24 20:34 Urine Cocaine Scre en Negative ng/mL (N egative) 09/27/24 20:34 U Marijuana (THC) Screen Negative ng/mL (N egative) 09/27/24 20:34 Ethyl Alcohol 305 mg/dL (0-10) H* 09/27/24 21:25 Vitals: Last Vital Signs Temp 97.6 F 10/05/24 06:00 Pulse 71 10/05/24 06:00 Resp 18 10/05/24 06:00 BP 115/79 10/05/24 06:00 Pulse Ox 100 10/05/24 06:00 O2 Del Method Room Air 10/04/24 14:00 Discharge Plan Discharge Patient Disposition: Home Condition: Stable Prescriptions: New trazodone 50 mg Tablet 50 mg PO BEDTIME PRN (Reason: Sleep) 30 Days Qty: 30 1RF hydroxyzine pamoate 25 mg Capsule 50 mg PO Q6H PRN (Reason: Anxiety) 30 Days Qty: 120 1RF thiamine mononitrate (vit B1) [Vitamin B-1 (mononitrate)] 100 mg Tablet 100 mg PO DAILY 30 Days Qty: 30 1RF Continued baclofen 10 mg Tablet 10 mg PO TID PRN (Reason: Pain) 30 Days Qty: 60 1RF bupropion HCl [Wellbutrin XL] 150 mg Tablet Extended Release 24 Hr 150 mg PO DAILY 30 Days Qty: 30 1RF Discharge Orders: Discharge Order (Routine); Ordered 10/05/24 Ordered By: Nazario Roa Referrals: [facility] [Other] [facility] [Outside] - 10/09/24 10:30 am (Initial appointment with Johanne Tejada.) Ino Stovall MD [Primary Care Provider] - (Outpatient rehabilitation. ) Discharge Diet: Regular Discharge Activity: Resume usual activity Patient Instructions: Opioid Safety Discharge Attestations NPU Time Spent in Discharge Care*: less than 30 min Specific Discharge Activities: Specific discharge activities: educating patient, discussing with case management social worker/social workers/dc planners, documenting/other paperwork and evaluating patient/reviewing data Coding Level of Care Code Acute Code for [facility] Fwd Diagnoses Depression F32.9 Alcohol dependence F10.20 Anxiety F41.9 Suicidal ideation R45.851
[2024-10-05 12:36] VITALS: BP 115/79; PULSE 71; RESP 18; TEMP 36.4; O2SAT 100
--- NOTE | 2024-10-07 13:02 | PC.NURSE ---
CALLED IN PRESCRIPTION VIVITROL 380MG IM X 2 REFILL TO [facility] [phone] SPOKE WITH PHARMACIST MICA. THEN CALLED PATIENT TO INFORM HIM OF MEDICATION BEING CALLED INTO PHARMACY.
== END 2024-10-05 14:23 | disposition home or self-care (01) | DRG 881 ==
LOC: ER 20:57 → NP 21:40
PROVIDERS: Admitting Provider Psychiatry & Neurology Psychiatry; Emergency Provider Emergency Medicine; PCP Family Medicine Adult Medicine; Visit Provider Psychiatry & Neurology Psychiatry
DX: F32.A Depression, unspecified (principal); R45.851 Suicidal ideations; Y90.8 Blood alcohol level of 240 mg/100 ml or more; F17.200 Nicotine dependence, unspecified, uncomplicated; Z81.1 Family history of alcohol abuse and dependence; F10.229 Alcohol dependence with intoxication, unspecified; T43.296A Underdosing of other antidepressants, initial encounter; Z91.138 Patient's unintentional underdosing of medication regimen for other reason; F41.9 Anxiety disorder, unspecified
CPT/HCPCS: 36415; 80053; 80306; 80307; 81001; 84443; 85025; 93005; 96372; 97150; 97165; 99285; J3411

== ENCOUNTER → 2025-01-08 11:27 | Outpatient (BNVA) | payer MEDICAID, SELFPAY | PROVIDERS: PCP Family Medicine; Visit Provider Nurse Practitioner Psychiatric/Mental Health | DX: Z03.89 Encounter for observation for other suspected diseases and conditions ruled out (principal) | CPT/HCPCS: 82306; 84439; 84443; 84481 ==

== ENCOUNTER 2025-07-06 06:32 | Emergency (ER) | payer MEDICAID, SELFPAY ==
[2025-07-06 07:00] VITALS: BP 113/90; PULSE 81; RESP 16; TEMP 37.1; O2SAT 99; BMI 22.9
[2025-07-06 07:22] LABS: Hematocrit 40.6 % (37-53); Hemoglobin 13.90 g/dL (11.27-16.99); Mean Corpuscular HGB Conc 34.2 g/dL (30-55); Mean Corpuscular Hemoglobin 32.5 pg (27-33); Mean Corpuscular Volume 94.9 fl (82-101); Nucleated Red Blood Cells % 0 %; Platelet Count 211 10^3/cmm (157-399); Red Blood Count 4.28 10^6/uL (3.85-5.65); White Blood Count 7.82 10^3/uL (3.29-11.43)
[2025-07-06 07:36] LABS: Alanine Aminotransferase 12 U/L (0-41); Albumin Level 4.4 g/dL (3.5-5.2); Alcohol Level 44 mg/dL (0-10); Alkaline Phosphatase 67 U/L (40-130); Ammonia 27 umol/L (16-60); Anion Gap 19.0 (5-19); Aspartate Amino Transferase 22 U/L (0-40); Blood Urea Nitrogen 11 mg/dL (6-20); Calcium 9.3 mg/dL (8.5-10.5); Carbon Dioxide 25 mmol/L (22-29); Chloride 99 mmol/L (98-107); Creatinine Clr Calc Pharmacy 184.0981; Globulin 2.6 g/dL (1.3-4.6); Glucose 94 mg/dL (65-115); Osmolality Calculated 287 mOsm/kg (285-295); Potassium 4.0 mmol/L (3.5-5.1); Sodium 139 mmol/L (136-145); Total Protein 7.0 g/dL (6.6-8.7)
--- NOTE | 2025-07-06 08:26 | ED_ITS ---
HPI - Alcohol 2 General: Chief Complaint: Alcohol Stated Complaint: Alcohol withdraw Time Seen by Provider: 07/06/25 06:41 History of Present Illness: 50-year-old male presents emergency room with complaint of alcohol withdrawal. He states he last drank last night and he has been drinking for the last 8 or 9 days he had been sober for several months and then began drinking again 8 or 9 days ago he was drinking up to 1/5/day. After patient registered in the emergency room he went back outside for a length of time and came in. When he came back in he does smell of alcohol. He states he has quit several times in the past. No reported history of seizures Associated symptoms: Deny abdominal pain Related Data Previous Rx's ?Medication ?Instructions ?Recorded baclofen 10 mg tablet 10 mg PO TID PRN Pain 30 day s #60 12/18/24 tabs sildenafil (pulm.hypertension) 20 20 mg PO ONCE #10 ta bs 01/26/ mg tablet thiamine mononitrate (vit B1) 100 100 mg PO DAILY 30 d ays #30 tabs 03/19/25 mg tablet (Vitamin B-1 (mononitrate)) escitalopram oxalate 10 mg tablet 10 mg PO DAILY #30 t abs 04/24/25 hydroxyzine pamoate 25 mg capsule 50 mg (2 x 25 mg) PO Q6H PRN 04/24/25 Anxiety 30 days #120 caps bupropion HCl 200 mg tablet,12 hr 200 mg PO QAM #30 ta bs 06/08/25 sustained-release omeprazole 20 mg capsule,delayed 20 mg PO DAILY #30 ca ps 06/08/25 release trazodone 100 mg tablet 100 mg PO DAILY PRN insomnia #30 06/08/25 tabs naltrexone microspheres 380 mg See Rx Instructions .Ro [place] 07/03/25 intramuscular suspension,extended .COMPLEX #1 ea release (Vivitrol) Allergies Allergy/AdvReac Type Severity Reaction Status Date / Time No Known Allergies Allergy Verified 04/24/25 11:04 Review of Systems 2 Const: Denies: fever(s) or chills Card: Denies: chest pain Resp: Denies: dyspnea GI: Denies: abdominal pain : Denies: dysuria, urinary frequency or urinary urgency Musc: Denies: neck pain or back pain Skin/Breast: Denies: rash PFSH ED 2 PFSH: Medical History Alcohol use disorder, severe, dependence Major depressive disorder, recurrent episode, moderate with anxious distress Nicotine dependence, cigarettes, uncomplicated Erectile dysfunction Major depression Alcoholism Psychiatric care Scoliosis Ganglion cyst History of suicidal ideation Surgical History History of tonsillectomy Family History Mother Alcoholism Father Hypertension Social History Smoking and tobacco/nicotine status: current every day tobacco/nicotine user cigarettes Packs smoked per day: 0.75 [ Other cigarette details: trying to quit currrently] Alcohol intake: former Year of sobriety/quit date alcohol: 2023 Former alcohol use details: was on vivitrol shot; last drink 08/22 Substance/Drug Use: never Household members: significant other Marital status: Number of children: 4 Highest education level completed: Bachelor's Degree Current occupational status: employed 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 [employer] Physical Exam 2 Const: GENERAL APPEARANCE: cooperative ORIENTATION/CONSCIOUSNESS: Yes awake, Yes oriented to person, Yes oriented to place and Yes oriented to time HENMT: COMMON NORMALS: normocephalic, atraumatic and hearing grossly normal bilaterally HEAD & SCALP: normocephalic and atraumatic Resp: COMMON NORMALS: normal respiratory effort, No retractions, No use of accessory muscles and clear to auscultation bilaterally AUSCULTATION: clear to auscultation bilaterally Cardio: COMMON NORMALS: regular rate, regular rhythm and No murmurs present (Cardio) RATE: regular rate RHYTHM: regular rhythm GI: COMMON NORMALS: Soft to palpation and No hepatosplenomegaly present A USCULTATION: Yes normoactive bowel sounds PALPATION: Yes Soft to palpation, No Tenderness to palpation present (GI), No Guarding due to palpation present (GI) and Yes No hepatosplenomegaly present Extremity: COMMON NORMALS: normal to inspection, capillary refill normal, no clubbing, cyanosis or edema, no calf tenderness and no pedal edema Neuro: SENSORIUM/ORIENTATION: Yes oriented to person, Yes oriented to place and Yes oriented to time Skin: COMMON NORMALS: no rashes or lesions noted GENERAL SKIN EXAM: no rashes or lesions noted Course 2 Vital Signs: Vital signs: Vital Signs Temperature 98.7 F 07/06/25 07:00 Pulse Rate 73 07/06/25 08:49 Respiratory Rate 12 07/06/25 08:49 Blood Pressure 162/94 07/06/25 08:49 Pulse Oximetry 97 07/06/25 08:49 Oxygen Delivery Me thod Room Air 07/06/25 07:00 MDM - Alcohol Medical Decision Making On CIWA protocol at this time he scores of 4. Generally scores below 8 do not require medications. He is not tachycardic in fact at times low resting he was bradycardic. He was given 2 mg of Ativan here discussed with the patient he still has a fair amount of alcohol in his system at this time. Will discharge him home encouraged him to continue working with the program he was in before for substance abuse. Medical Records I reviewed the patient's medical records. Lab Data I reviewed the patient's lab results. 07/06/25 07:08 07/06/25 07:08 Laboratory Results WBC 7.82 10^3/uL (3.29-11.43) 07/06/25 07:08 RBC 4.28 10^6/uL (3.85-5.65) 07/06/25 07:08 Hgb 13.90 g/dL (11.27-16.99) 07/06/25 07:08 Hct 40.6 % (37-53) 07/06/25 07:08 MCV 94.9 fl (82-101) 07/06/25 07:08 MCH 32.5 pg (27-33) 07/06/25 07:08 MCHC 34.2 g/dL (30-55) 07/06/25 07:08 RDW 14.2 % (12.1-15.1) 07/06/25 07:08 Plt Count 211 10^3/cmm (157-399) 07/06/25 07:08 MPV 9.8 fL (7.4-10.4) 07/06/25 07:08 Neut % (Auto) 68.7 % 07/06/25 07:08 Lymph % (Auto) 17.9 % 07/06/25 07:08 [place] % (Auto) 12.0 % 07/06/25 07:08 Eos % (Auto) 0.8 % 07/06/25 07:08 Baso % (Auto) 0.5 % 07/06/25 07:08 Neut # (Auto) 5.37 10^3/uL (1.8-7.7) 07/06/25 07:08 Lymph # (Auto) 1.4 10^3/uL (0.8-4.8) 07/06/25 07:08 [place] # (Auto) 0.9 10^3/uL (0.2-0.9) 07/06/25 07:08 Eos # (Auto) 0.1 10^3/uL (0.0-0.8) 07/06/25 07:08 Baso # (Auto) 0.0 10^3/uL (0.0-0.1) 07/06/25 07:08 Nucleated RBC % (auto) 0 % 07/06/25 07:08 Nucleated RBCs # 0.0 /100WBC 07/06/25 07:08 Sodium 139 mmol/L (136-145) 07/06/25 07:08 Potassium 4.0 mmol/L (3.5-5.1) 07/06/25 07:08 Chloride 99 mmol/L (98-107) 07/06/25 07:08 Carbon Dioxide 25 mmol/L (22-29) 07/06/25 07:08 Anion Gap 19.0 (5-19) 07/06/25 07:08 BUN 11 mg/dL (6-20) 07/06/25 07:08 Creatinine 0.5 mg/dL (0.7-1.2) L 07/06/25 07:08 GFR Calculation 176.7 mL/min (90-130) H 07/06/25 07:08 Glucose 94 mg/dL (65-115) 07/06/25 07:08 Calculated Osmolality 287 mOsm/kg (285-295) 07/06/25 07:08 Calcium 9.3 mg/dL (8.5-10.5) 07/06/25 07:08 Total Bilirubin 0.3 mg/dL (0.15-1.2) 07/06/25 07:08 AST 22 U/L (0-40) 07/06/25 07:08 ALT 12 U/L (0-41) 07/06/25 07:08 Alkaline Phosphatase 67 U/L (40-130) 07/06/25 07:08 Ammonia 27 umol/L (16-60) 07/06/25 07:08 Total Protein 7.0 g/dL (6.6-8.7) 07/06/25 07:08 Albumin 4.4 g/dL (3.5-5.2) 07/06/25 07:08 Globulin 2.6 g/dL (1.3-4.6) 07/06/25 07:08 Urine Color Yellow (Yellow) 07/06/25 08:18 Urine Appearance Clear (CLEAR) 07/06/25 08:18 Urine pH 7.0 (5-7) 07/06/25 08:18 Ur Specific [place] 1.030 (1.005-1.030) 07/06/25 08:18 Urine Protein 2+ (Negative) H 07/06/25 08:18 Urine Glucose (UA) Norm (Normal) 07/06/25 08:18 Urine Ketones Trace (Negative) H 07/06/25 08:18 Urine Blood Neg (Negative) 07/06/25 08:18 Urine Nitrate Negative (Negative) 07/06/25 08:18 Urine Bilirubin Neg (Negative) 07/06/25 08:18 Urine Urobilinogen 0.2 mg/dL (Negative) 07/06/25 08:18 Ur Leukocyte Esterase Trace (Negative) 07/06/25 08:18 Urine RBC 0-2 /hpf (0-2) 07/06/25 08:18 Urine WBC 0-5 /hpf (0-5) 07/06/25 08:18 Ur Squamous Epith Cells 0-4 /hpf (0-5) H 07/06/25 08:18 Amorphous Sediment Not Reportable 07/06/25 08:18 Urine Bacteria None /hpf (NONE) 07/06/25 08:18 Ethyl Alcohol 44 mg/dL (0-10) H 07/06/25 07:08 No radiology studies performed this visit Discharge Plan Discharge Patient Disposition: Home Clinical Impression: Alcoholism Condition: Stable Prescriptions: No Action escitalopram oxalate 10 mg tablet 10 mg PO DAILY Qty: 30 2RF Rx Instructions: Take one tablet by mouth every AM hydroxyzine pamoate 25 mg capsule 50 mg PO Q6H PRN (Reason: Anxiety) 30 Days Qty: 120 0RF Rx Instructions: Take 2 capsules every six hours, if needed for anxiety baclofen 10 mg tablet 10 mg PO TID PRN (Reason: Pain) 30 Days Qty: 60 1RF sildenafil (pulm.hypertension) 20 mg tablet 20 mg PO ONCE Qty: 10 0RF Rx Instructions: take 1hr prior to sexual activity; may take up to 5 tabs in 24hr period thiamine mononitrate (vit B1) [Vitamin B-1 (mononitrate)] 100 mg tablet 100 mg PO DAILY 30 Days Qty: 30 1RF bupropion HCl 200 mg tablet sustained-release 12 hr 200 mg PO QAM Qty: 30 2RF Rx Instructions: Take one tablet by mouth every morning omeprazole 20 mg capsule,delayed release(DR/EC) 20 mg PO DAILY Qty: 30 1RF trazodone 100 mg tablet 100 mg PO DAILY PRN (Reason: insomnia) Qty: 30 1RF Rx Instructions: Take one tablet daily at bedtime, if needed for insomnia Vivitrol 380 mg suspension,extended rel recon See Rx Instructions .ROUTE .COMPLEX Qty: 1 0RF Dose Instruction: INJECT 380 MG INTRAMUSCULARLY EVERY 30 DAYS Rx Instructions: INJECT 380 MG INTRAMUSCULARLY EVERY 30 DAYS Discharge Orders: Discharge ED (Routine); Ordered 07/06/25 Ordered By: Erickson Clement Referrals: Aleksandra Conklin MD [Primary Care Provider, Family Practice] Patient Instructions: Alcoholism, Abuse of Alcohol (ED), Alcohol Use Disorder (ED), Opioid Safety, Pain Management, Patient Portal & Donna Instructions Activity Restrictions/Additional Instructions: Thank you for choosing [facility] for your healthcare needs today. It is very important that you follow up as instructed or that you return to the Emergency Department should you have concerns or if your condition changes or worsens in any way. You are seen in the emergency room concerning her alcohol use. You still did have some alcohol in your system. On a withdrawal score at this time medications are not indicated. Will discharge home recommend you continue to work with program to achieve sobriety and abstain from alcohol. Print Language: Faroese Coding Level of Care Code ED Central Service Tech for Rem[facility] Frank
[2025-07-06 08:49] VITALS: BP 162/94; PULSE 73; RESP 12; O2SAT 97
[2025-07-06 09:32] LABS: Glucose Urine UA Norm (Normal); Nitrate Urine Negative (Negative); Specific Gravity, Urine 1.030 (1.005-1.030)
[2025-07-06 09:33] LABS: Add Urine Microscopic? YES
== END 2025-07-06 08:50 | disposition home or self-care (01) ==
PROVIDERS: Emergency Provider Family Medicine; PCP Family Medicine
DX: F10.229 Alcohol dependence with intoxication, unspecified (principal); Y90.2 Blood alcohol level of 40-59 mg/100 ml; F17.210 Nicotine dependence, cigarettes, uncomplicated
CPT/HCPCS: 80053; 80307; 81001; 82140; 85025; 99283; J9999